=== PATIENT | female | born 1950 | race Caucasian/White ===

== ENCOUNTER 2019-04-12 15:09 | Inpatient (IN) | payer MEDICARE, OTHER ==
[2019-04-12] MEDS ORDERED: IBUPROFEN 600 MG TAB PO STA (15:41)
[2019-04-12] MEDS ORDERED: IPRATROPIUM-ALBUTEROL 3 ML NEB INHALATION STA (15:42)
[2019-04-12] MEDS ORDERED: methylPREDNISolone SOD SUCCI 125 MG/2 ML VIAL IV STA (15:43)
[2019-04-12] MEDS ORDERED: SODIUM CHLORIDE 0.9% 500 ML 500 ML IV SCH (15:45)
--- NOTE | 2019-04-12 15:45 | ED ---
General Adult HPI - General Chief complaint: Shortness of Breath Stated complaint: les, congestion Time Seen by Provider: 04/12/19 15:16 Source: patient, RN notes reviewed Mode of arrival: ambulatory Limitations: no limitations - History of Present Illness Initial comments: Patient is a pleasant 68-year-old female presenting to the emergency Department with complaints of difficulty breathing. Onset of symptoms was a couple of days ago, worsened today. Patient did find out that she had a fever today and took Tylenol around 2:00. Patient does have cough with mild greenish/yellowish sputum. Patient does have history of COPD. Patient did see her lung doctor just a few days ago who did tell her that she had some congestion in her chest. - Related Data Home Medications Medication Instructions Recorded Confirmed Albuterol Inhaler [Ventolin Hfa 1 - 2 puff INHALATION RT-Q6H 04/12/19 04/12/19 Inhaler] Budesonide/Formoterol Fumarate 2 puff INHALATION RT-BID 04/12/19 04/12/19 [Symbicort 160-4.5 Mcg Inhaler] Calcium Carbonate [Calcium] 600 mg PO DAILY 04/12/19 04/12/19 Candesartan [Atacand] 8 mg PO DAILY 04/12/19 04/12/19 Multivitamins, Thera [Multivitamin 1 tab PO DAILY 04/12/19 04/12/19 (formulary)] Triamterene-Hctz 37.5-25Mg 1 tab PO DAILY 04/12/19 04/12/19 [Maxzide 37.5-25] Umeclidinium [place] [Incruse 1 puff INHALATION RT-DAILY 04/12/19 04/12/19 Ellipta] Vitamin D3(Unknown Dose) 1 tab PO DAILY 04/12/19 04/12/19 Allergies Allergy/AdvReac Type Severity Reaction Status Date / Time lisinopril Allergy Rash/Hives Verified 04/12/19 15:48 mercury (elemental) Allergy Rash/Hives Verified 04/12/19 15:48 metoprolol Allergy Rash/Hives Verified 04/12/19 15:48 penicillin V Allergy Anaphylaxis Verified 04/12/19 15:48 pseudoephedrine Allergy Rapid Verified 04/12/19 15:48 [From [facility]] Heart Rate Review of Systems ROS Statement: Those systems with pertinent positive or pertinent negative responses have been documented in the HPI. ROS Other: All systems not noted in ROS Statement are negative. Constitutional: Reports: fever, chills Eyes: Denies: eye pain ENT: Denies: ear pain Respiratory: Reports: cough, dyspnea Cardiovascular: Reports: chest pain (Patient had some discomfort on the right side of her chest with cough. This has resolved following Tylenol.) Endocrine: Reports: fatigue Gastrointestinal: Denies: abdominal pain Genitourinary: Denies: dysuria Musculoskeletal: Denies: back pain Skin: Denies: rash Neurological: Denies: weakness Past Medical History Past Medical History: COPD, Hypertension History of Any Multi-Drug Resistant Organisms: None Reported Past Surgical History: Tonsillectomy Additional Past Surgical History / Comment(s): hernia repair. Past Psychological History: No Psychological Hx Reported Smoking Status: Current every day smoker Past Alcohol Use History: None Reported Past Drug Use History: None Reported General Exam Limitations: no limitations General appearance: alert, in no apparent distress Head exam: Present: atraumatic Eye exam: Present: normal appearance, PERRL ENT exam: Present: normal oropharynx Neck exam: Present: normal inspection Respiratory exam: Present: wheezes Cardiovascular Exam: Present: regular rate, normal rhythm Expanded Peripheral pulses: 2+: Radial (R), Radial (L), Dorsalis Pedis (R), Dorsalis Pedis (L) GI/Abdominal exam: Present: soft. Absent: tenderness Extremities exam: Present: normal inspection. Absent: pedal edema, calf tenderness Neurological exam: Present: alert Psychiatric exam: Present: normal affect, normal mood Skin exam: Present: normal color Course Vital Signs 04/12/19 04/12/19 04/12/19 15:10 15:51 15:58 Temperature 100.1 F H Pulse Rate 105 H 80 96 Respiratory 28 H 16 18 Rate Blood Pressure 96/55 O2 Sat by Pulse 94 L Oximetry 04/12/19 16:48 Temperature Pulse Rate Respiratory 18 Rate Blood Pressure O2 Sat by Pulse Oximetry - Reevaluation(s) Reevaluation #1: 04/12/19 16:59 Patient does meet criteria for sepsis diagnosed at 1659. Blood culture and lactic acid have been ordered. IV antibiotic's will be ordered. EKG Findings - EKG Comments: EKG Findings:: Normal sinus rhythm 91. OR 14. QRS 94. QT 382. QTC 469. Normal axis. Normal QRS. No acute ST change. Medical Decision Making - Medical Decision Making Patient reevaluated. Patient updated on results and plan. Case was discussed in detail Dr. Mcallister, who will admit for Dr. Smallwood. - Lab Data Result diagrams: 04/12/19 15:20 04/12/19 16:20 Lab Results 04/12/19 04/12/19 04/12/19 Range/Units 15:20 15:20 16:20 WBC 10.5 (3.8-10.6) k/uL RBC 2.83 L (3.80-5.40) m/uL Hgb 7.5 L (11.4-16.0) gm/dL Hct 25.4 L (34.0-46.0) % MCV 90.0 (80.0-100.0) fL MCH 26.7 (25.0-35.0) pg MCHC 29.7 L (31.0-37.0) g/dL RDW 14.5 (11.5-15.5) % Plt Count 194 (150-450) k/uL Neutrophils % 84 % Lymphocytes % 8 % Monocytes % 6 % Eosinophils % 1 % Basophils % 0 % Neutrophils # 8.8 H (1.3-7.7) k/uL Lymphocytes # 0.8 L (1.0-4.8) k/uL Monocytes # 0.7 (0-1.0) k/uL Eosinophils # 0.1 (0-0.7) k/uL Basophils # 0.0 (0-0.2) k/uL Sodium 133 L (137-145) mmol/L Potassium 3.8 (3.5-5.1) mmol/L Chloride 101 (98-107) mmol/L Carbon Dioxide 22 (22-30) mmol/L Anion Gap 10 mmol/L BUN 14 (7-17) mg/dL Creatinine 0.89 (0.52-1.04) mg/dL Est GFR (CKD-EPI)AfAm 78 (>60 ml/min/1.73 sqM) Est GFR (CKD-EPI)NonAf 68 (>60 ml/min/1.73 sqM) Glucose 131 H (74-99) mg/dL Plasma Lactic Acid Morales 1.5 (0.7-2.0) mmol/L Calcium 8.9 (8.4-10.2) mg/dL Total Bilirubin 1.3 (0.2-1.3) mg/dL AST 19 (14-36) U/L ALT 18 (9-52) U/L Alkaline Phosphatase 75 (38-126) U/L Total Protein 6.2 L (6.3-8.2) g/dL Albumin 3.5 (3.5-5.0) g/dL - Radiology Data Radiology results: image reviewed (Chest x-ray shows right middle lobe infiltrate) Critical Care Time Critical Care Time: Yes Total Critical Care Time: 33 Disposition Clinical Impression: Pneumonia, Sepsis, Acute exacerbation of chronic obstructive airways disease Disposition: ADMITTED IP TO THIS HOSP Is patient prescribed a controlled substance at d/c from ED?: No Referrals: Paras Smallwood MD [Primary Care Provider] - 1-2 days Decision Time: 17:05
[2019-04-12 16:13] LABS: Basophils % (A) 0 %; Eosinophils # (A) 0.1 k/uL (0-0.7); Eosinophils % (A) 1 %; HCT 25.4 % (34.0-46.0); Lymphocytes # (A) 0.8 k/uL (1.0-4.8); Lymphocytes % (A) 8 %; MCH 26.7 pg (25.0-35.0); MCHC 29.7 g/dL (31.0-37.0); Mean Platelet Volume 7.2; Monocytes # (A) 0.7 k/uL (0-1.0); Monocytes % (A) 6 %; Neutrophils # (A) 8.8 k/uL (1.3-7.7); Neutrophils % (A) 84 %; Platelet Count 194 k/uL (150-450); RBC 2.83 m/uL (3.80-5.40); RDW 14.5 % (11.5-15.5); WBC 10.5 k/uL (3.8-10.6)
--- NOTE | 2019-04-12 16:26 | XR ---
EXAMINATION TYPE: XR chest 2V DATE OF EXAM: 04/12/2019 COMPARISON: NONE HISTORY: Fever and cough TECHNIQUE: Frontal and lateral views of the chest are obtained. FINDINGS: There is some patchy infiltrate in the right middle lobe. The left lung is clear. There is no heart failure. Heart and mediastinum are normal. Bony thorax appears intact. IMPRESSION: Right middle lobe pneumonia. Normal heart.
[2019-04-12 16:47] LABS: Albumin 3.5 g/dL (3.5-5.0); Calcium 8.9 mg/dL (8.4-10.2); Potassium 3.8 mmol/L (3.5-5.1); Total Bilirubin 1.3 mg/dL (0.2-1.3); Total Protein 6.2 g/dL (6.3-8.2)
[2019-04-12] MEDS ORDERED: PNEUMONIA PROTOCOL UTILIZED 1 EACH MISC PO PRN (17:05)
[2019-04-12] MEDS ORDERED: IPRATROPIUM-ALBUTEROL 3 ML NEB INHALATION PRN (17:05)
[2019-04-12] MEDS ORDERED: AZITHROMYCIN 500 MG in SODIUM CHLORIDE 0.9% 250 ML IVPB STA (17:05)
[2019-04-12] MEDS ORDERED: LEVOFLOXACIN 750MG-D5W PMX 750 MG in DEXTROSE/WATER 1 150ML.BAG IVPB STA (17:07)
[2019-04-12] MEDS ORDERED: LEVOFLOXACIN 750MG-D5W PMX 750 MG in DEXTROSE/WATER 1 150ML.BAG IVPB SCH (17:15)
[2019-04-12] MEDS: SODIUM CHLORIDE 0.9% 1,000 ML IV SCH (17:24)
[2019-04-12] MEDS: methylPREDNISolone SOD SUCCI 125 MG/2 ML VIAL IV SCH ×2 (20:13→23:33)
[2019-04-12] MEDS: IPRATROPIUM-ALBUTEROL 3 ML NEB INHALATION SCH (20:33)
[2019-04-13] MEDS: SODIUM CHLORIDE 0.9% 1,000 ML IV SCH ×3 (03:32→23:21)
[2019-04-13] MEDS: methylPREDNISolone SOD SUCCI 125 MG/2 ML VIAL IV SCH ×4 (05:43→23:23)
[2019-04-13] MEDS: IPRATROPIUM-ALBUTEROL 3 ML NEB INHALATION SCH ×4 (07:52→19:01)
[2019-04-13 08:06] LABS: Basophils % (A) 0 %; Eosinophils % (A) 0 %; HCT 41.5 % (34.0-46.0); Lymphocytes # (A) 0.8 k/uL (1.0-4.8); Lymphocytes % (A) 5 %; MCH 30.1 pg (25.0-35.0); MCHC 32.6 g/dL (31.0-37.0); MCV 92.3 fL (80.0-100.0); Mean Platelet Volume 7.1; Monocytes # (A) 0.3 k/uL (0-1.0); Monocytes % (A) 2 %; Neutrophils # (A) 14.6 k/uL (1.3-7.7); Neutrophils % (A) 92 %; Platelet Count 336 k/uL (150-450); RDW 14.9 % (11.5-15.5); WBC 15.8 k/uL (3.8-10.6)
[2019-04-13 08:17] LABS: HGB 13.6 gm/dL (11.4-16.0)
[2019-04-13 08:19] LABS: HGB 7.5 gm/dL (11.4-16.0)
[2019-04-13] MEDS: LEVOFLOXACIN 750MG-D5W PMX 750 MG in DEXTROSE/WATER 1 150ML.BAG IVPB SCH (09:06)
[2019-04-13] MEDS: NICOTINE 21MG/24HR PATCH TRANSDERM SCH (09:20)
[2019-04-13] MEDS: MULTIVITAMINS, THERA 1 EACH TAB PO SCH (09:21)
[2019-04-13] MEDS: CALCIUM CARBONATE 500 MG CHEWABLE PO SCH (09:21)
[2019-04-13] MEDS: TRIAMTERENE-HCTZ 37.5-25MG 1 EACH TAB PO SCH (09:21)
--- NOTE | 2019-04-13 09:23 | XR ---
EXAMINATION TYPE: XR chest 2V DATE OF EXAM: 04/13/2019 COMPARISON: 04/12/2020 INDICATION: Pneumonia TECHNIQUE: Frontal and lateral views of the chest are obtained. FINDINGS: The heart size is normal. The pulmonary vasculature is normal. Small focal consolidation is at the right lung base right middle lobe. This is stable from comparison . Continued follow-up is recommended.. IMPRESSION: 1. Stable small consolidation right lung base right middle lobe and continued follow-up is recommende d
[2019-04-13] MEDS ORDERED: ACETAMINOPHEN TAB 325 MG TAB PO PRN (09:27)
--- NOTE | 2019-04-13 09:46 | P.HPIM ---
History of Present Illness H&P Date: 04/13/19 Chief Complaint: Difficulty breathing This is a 68-year-old female patient of Dr. Smallwood with a past medical history of COPD, hypertension, tobacco use and dependence at one pack per day for 30-40 years. Patient's pulmonary doctor has been Dr. Major and patient was seen on by Josselyn Ivy GAS WELDER in the office and was diagnosed with congestion but patient felt worse on Saturday. On Saturday she noted that she slept about 14 hours but was waking up every couple hours. On Saturday her girlfriend came over and told her that she looked awful and felt her face and patient was found to have a fever. Patient states she's had a headache since which she never has headaches. Patient did take Tylenol and 20-30 minutes later broke into profuse sweats. Patient came into [facility] emergency center for evaluation. Temperature max 100.1, heart rate 105, respiratory rate 28 and blood pressure 96/54, pulse ox is 94% on room air. EKG was a normal sinus rhythm with no acute ST-T wave changes. White count was 10.5 with repeat 15.8 possibly related to steroids or sepsis, hemoglobin 7.5 but repeat was 13.6, platelet count 194, sodium 133, creatinine 0.89 and blood sugar 131. Chest x-ray revealed right middle lobe pneumonia. Normal heart. Repeat chest x-ray this morning reveals stable small consolidation right lung base rig ht middle lobe and continued follow-up is recommended. Patient was given a dose of azithromycin started on Levaquin and Solu-Medrol, DuoNeb treatments and admitted to the [facility] floor. Consult with Dr. ELVIA Rodriguez added. Patient does now have nebulizer, oxygen, CPAP at home. . Review of Systems Constitutional: Reports chills, Reports fatigue, Reports fever, Reports lethargy, Reports malaise, Reports poor appetite, Reports weakness Ears, nose, mouth and throat: Denies dysphagia, Denies nasal congestion, Denies nasal discharge, Denies vertigo Cardiovascular: Reports shortness of breath, Denies chest pain, Denies dyspnea on exertion, Denies edema, Denies leg edema, Denies lightheadedness, Denies syncope Respiratory: Reports cough, Reports cough with sputum, Reports dyspnea, Reports respiratory infections, Reports wheezing, Denies excessive sputum, Denies hemoptysis, Denies home oxygen Gastrointestinal: Denies abdominal pain, Denies diarrhea, Denies nausea, Denies vomiting Genitourinary: Denies dysuria, Denies hematuria, Denies urgency, Denies urinary frequency Musculoskeletal: Denies frequent falls, Denies gait dysfunction, Denies muscle weakness, Denies myalgias Integumentary: Denies pruritus, Denies rash, Denies wounds Neurological: Denies aphasia, Denies change in mentation, Denies change in speech, Denies numbness, Denies seizures, Denies syncope, Denies weakness Psychiatric: Denies anxiety, Denies depression Endocrine: Denies fatigue, Denies weight change Past Medical History Past Medical History: COPD, Hypertension History of Any Multi-Drug Resistant Organisms: None Reported Past Surgical History: Tonsillectomy Additional Past Surgical History / Comment(s): hernia repair. Smoking Status: Current every day smoker Additional Past Alcohol Use History / Comment(s): Patient is a smoker of one pack per day for 30-40 years. She denies any marijuana, street drug or alcohol use. She is retired cashier and waiter/waitress. She lives at home with significant other. She does not have a nebulizer, oxygen, CPAP. - Past Family History Father Additional Family Medical History / Comment(s): Father at age 68 from kidney cancer. He also had lung cancer. Patient was exposed to toxic chemicals thought to cause kidney cancer. Mother Additional Family Medical History / Comment(s): Mother at age 54 from gangrene. She was not diabetic. Sister(s) Additional Family Medical History / Comment(s): The patient has one sister and she has had no contact with her for 20 years. Patient does not have any brothers. Patient has 4 children with no major medical problems. Medications and Allergies Home Medications Medication Instructions Recorded Confirmed Type Albuterol Inhaler [Ventolin Hfa 1 - 2 puff INHALATION RT-Q6H 04/12/19 04/12/19 History Inhaler] Budesonide/Formoterol Fumarate 2 puff INHALATION RT-BID 04/12/19 04/12/19 History [Symbicort 160-4.5 Mcg Inhaler] Calcium Carbonate [Calcium] 600 mg PO DAILY 04/12/19 04/12/19 History Candesartan [Atacand] 8 mg PO DAILY 04/12/19 04/12/19 History Multivitamins, Thera [Multivitamin 1 tab PO DAILY 04/12/19 04/12/19 History (formulary)] Triamterene-Hctz 37.5-25Mg 1 tab PO DAILY 04/12/19 04/12/19 History [Maxzide 37.5-25] Umeclidinium [place] [Incruse 1 puff INHALATION RT-DAILY 04/12/19 04/12/19 History Ellipta] Vitamin D3(Unknown Dose) 1 tab PO DAILY 04/12/19 04/12/19 History Allergies Allergy/AdvReac Type Severity Reaction Status Date / Time lisinopril Allergy Rash/Hives Verified 04/12/19 15:48 mercury (elemental) Allergy Rash/Hives Verified 04/12/19 15:48 metoprolol Allergy Rash/Hives Verified 04/12/19 15:48 penicillin V Allergy Anaphylaxis Verified 04/12/19 15:48 pseudoephedrine Allergy Rapid Verified 04/12/19 15:48 [From [facility]] Heart Rate Physical Exam Vitals: Vital Signs Temp Pulse Pulse Resp BP BP Pulse Ox 04/13/19 08:03 73 04/13/19 07:53 72 04/13/19 05:00 97.5 F L 58 L 16 108/70 97 04/13/19 00:00 67 20 04/12/19 21:00 96.7 F L 67 20 106/50 91 L 04/12/19 20:43 80 04/12/19 20:36 77 04/12/19 17:10 97.8 F 79 18 104/67 98 04/12/19 16:48 18 04/12/19 15:58 96 18 04/12/19 15:51 80 16 04/12/19 15:10 100.1 F H 105 H 28 H 96/55 94 L Intake and Output 04/12/19 04/13/19 04/13/19 22:59 06:59 14:59 Intake Total 590 590 Balance 590 590 Intake: Oral 590 590 Other: # Voids 1 2 Weight 71.214 kg Gen: This is a 68-year-old female. Patient is resting been appears to be comfortable. Patient is able to speak in full sentences. No respiratory distress is noted. HEENT: Head is atraumatic, normocephalic. Pupils equal, round. Sclerae is anicteric. NECK: Supple. No JVD. No lymphadenopathy. No thyromegaly. LUNGS: Expiratory wheeze throughout. No accessory muscle usage. No intercostal retractions. HEART: Regular rate and rhythm. No murmur. ABDOMEN: Soft. Bowel sounds are present. No masses. No tenderness. EXTREMITIES: No pedal edema. No calf tenderness. Dorsalis pedis +2 bilaterally. NEUROLOGICAL: Patient is awake, alert and oriented x3. Cranial nerves 2 through 12 are grossly intact. Results CBC & Chem 7: 04/13/19 07:18 04/12/19 16:20 Labs: Abnormal Lab Results - Last 24 Hours (Table) 04/12/19 04/12/19 04/13/19 Range/Units 15:20 16:20 07:18 WBC 15.8 H (3.8-10.6) k/uL RBC 2.83 L (3.80-5.40) m/uL Hgb 7.5 L (11.4-16.0) gm/dL Hct 25.4 L (34.0-46.0) % MCHC 29.7 L (31.0-37.0) g/dL Neutrophils # 8.8 H 14.6 H (1.3-7.7) k/uL Lymphocytes # 0.8 L 0.8 L (1.0-4.8) k/uL Sodium 133 L (137-145) mmol/L Glucose 131 H (74-99) mg/dL Total Protein 6.2 L (6.3-8.2) g/dL Thrombosis Risk Factor Assmnt - DVT/VTE Prophylaxis DVT/VTE Prophylaxis: Pharmacologic Prophylaxis ordered - Choose All That Apply Each Factor Represents 1 point: Abnormal pulmonary function (COPD), Obesity (BMI >25), Serious lung disease incl. pneumonia (< 1month) Each Risk Factor Represents 2 Points: Age 61-74 years Thrombosis Risk Factor Assessment Total Risk Factor Score: 5 Thrombosis Risk Factor Assessment Level: High Risk Assessment and Plan Plan: 1. COPD exacerbation and right-sided pneumonia and sepsis presenting with fever, tachycardia, tachypnea, hypotension. Continue Levaquin 750 mg IV piggyback daily, Solu-Medrol 60 mg IV every 6 hours, Symbicort twice daily. Consult with Dr. ELVIA Rodriguez. Continue Tylenol as needed for fever. 2. Tobacco use and dependence. Nicotine patch daily. 3. Hypertension. Can do statin 8 mg daily, Maxide 25 one daily, hold for systolic blood pressure less than 110. 4. GI prophylaxis. Pepcid 20 mg twice daily. 5. DVT prophylaxis. Lovenox daily. 6. Elevated blood sugar, check hemoglobin A1c. 7. DVT prophylaxis. Lovenox. 8. GI prophylaxis. Pepcid daily. Patient will be admitted to the hospital for a minimum of 2 night stay. Discharge plan: Home. Patient will need nebulizer arranged for home. Case management is following. Impression and plan of care have been directed as dictated by the signing physician. Radha Woodruff nurse practitioner acting as scribe for signing physician.
[2019-04-13] MEDS: FAMOTIDINE 20 MG TAB PO SCH ×2 (11:11→20:25)
[2019-04-13] MEDS: CANDESARTAN 8 MG PO SCH (11:12)
[2019-04-13 11:28] LABS: Glucose,Whole Blood 182 mg/dL (75-99)
[2019-04-13] MEDS: INSULIN ASPART (NovoLOG) 100 UNIT/ML VIAL SQ SCH ×3 (12:19→20:26)
[2019-04-13] MEDS ORDERED: AZITHROMYCIN 500 MG TAB PO SCH (17:06)
[2019-04-13 17:18] LABS: Glucose,Whole Blood 146 mg/dL (75-99)
--- NOTE | 2019-04-13 18:33 | CT ---
EXAMINATION TYPE: CT chest wo con DATE OF EXAM: 04/13/2019 COMPARISON: None HISTORY: Pneumonia. CT DLP: 366 mGycm. Automated Exposure Control for Dose Reduction was Utilized. TECHNIQUE: CT scan of the thorax is performed without IV contrast. FINDINGS: There is a somewhat rounded 3.5 cm area of airspace consolidation lateral right lower lobe. The other lung olivo are clear of consolidation. There is some linear density lingula left upper lobe. There is mild linear density in the anterior segment right upper lobe adjacent to the mediastinum. There is no pleural effusion. Heart size is normal. There is no pericardial effusion. There is some coronary artery calcification. There is hypertrophic degenerative spurring in the thoracic spine. There is no compression fracture.. IMPRESSION: Airspace pneumonia right lower lobe. Linear density consistent with scarring atelectasis in the lingula left upper lobe and in the anterio r segment right upper lobe.
[2019-04-13] MEDS: BUDESONIDE 0.5 MG/2 ML NEBU INHALATION SCH (19:01)
--- NOTE | 2019-04-13 19:33 | CONS ---
CONSULTATION Suzanne Hoffman is a 68-year-old female with a history of asthma who presented to the ER at [facility] with increasing shortness of breath. This has been associated with cough, some wheezing, right-sided pleuritic chest pain as well as some fever, chills with sweats. She was seen in the ER. Chest x-ray showed evidence of a right lower zone infiltrate. She was admitted for further evaluation and management. PAST MEDICAL HISTORY: Her past medical history is positive for: 1. Asthma. 2. COPD. 3. Hypertension. 4. Previous tonsillectomy. 5. Hernia repair. SOCIAL HISTORY: Patient is an everyday smoker. She does not drink alcohol excessively. FAMILY HISTORY: Positive for kidney cancer in her father. Mother had a history of gangrene and at age 54. REVIEW OF SYSTEMS: Noncontributory. ALLERGIES: 1. LISINOPRIL. 2. METOPROLOL. 3. PENICILLIN B. 4. PSEUDOEPHEDRINE. 5. MERCURY. MEDICATIONS: Her medications prior to admission were: 1. Vitamin D3. 2. Incruse. 3. Maxzide. 4. Multivitamin. 5. Atacand. 6. Calcium. 7. Symbicort. 8. Ventolin HFA. PHYSICAL EXAMINATION: She was lying in bed. She was in mild respiratory distress. Her temperature was 100.1 when she came to the ER, respiratory rate of 28, pulse rate of 105, blood pressure 95/55. Oxygen saturation on room air was 94%. HEENT: Pupils are equal. Chest reveals prolonged exhalation with expiratory wheeze. Cardiovascular system is in S1, S2. ABDOMEN: Soft. There is no edema. LABS/IMAGING: White count is 15.8, hemoglobin of 13.6 with 14,600 neutrophils. Sodium is 133, potassium 3.8, chloride 101, bicarb 22. Chest x-ray showed evidence of right middle zone infiltrate. IMPRESSION AT THIS TIME: 1. Right-sided pneumonia. 2. Asthma with chronic obstructive pulmonary disease with acute exacerbation. At this point in time, keep her on IV and aerosolized steroids. Add leukotriene receptor antagonist to her regimen. Continue antibiotics. Await cultures on her. Increase her activity level. Keep her on GI and DVT prophylaxis. Keep her on bronchodilators. We will follow closely during her hospital stay and appreciate the opportunity to participate in her care. MMODL / IJN: [id number] /
[2019-04-13] MEDS ORDERED: SYMBICORT 160-4.5 MCG INHALER INHALATION SCH (20:00)
[2019-04-13 20:08] LABS: Glucose,Whole Blood 224 mg/dL (75-99)
[2019-04-13] MEDS: MONTELUKAST 10 MG TAB PO SCH (20:25)
[2019-04-14] MEDS: methylPREDNISolone SOD SUCCI 125 MG/2 ML VIAL IV SCH ×2 (05:44→12:41)
[2019-04-14 07:08] LABS: Glucose,Whole Blood 148 mg/dL (75-99)
[2019-04-14] MEDS: CALCIUM CARBONATE 500 MG CHEWABLE PO SCH (07:32)
[2019-04-14] MEDS: FAMOTIDINE 20 MG TAB PO SCH ×2 (07:32→21:06)
[2019-04-14] MEDS: MULTIVITAMINS, THERA 1 EACH TAB PO SCH (07:32)
[2019-04-14] MEDS: TRIAMTERENE-HCTZ 37.5-25MG 1 EACH TAB PO SCH (07:32)
[2019-04-14] MEDS: CANDESARTAN 8 MG PO SCH (07:33)
[2019-04-14] MEDS: INSULIN ASPART (NovoLOG) 100 UNIT/ML VIAL SQ SCH ×4 (07:33→21:04)
[2019-04-14] MEDS: NICOTINE 21MG/24HR PATCH TRANSDERM SCH (07:33)
[2019-04-14] MEDS: ENOXAPARIN 40 MG/0.4 ML SYRINGE SQ SCH (07:34)
[2019-04-14] MEDS: LEVOFLOXACIN 750MG-D5W PMX 750 MG in DEXTROSE/WATER 1 150ML.BAG IVPB SCH (07:34)
[2019-04-14] MEDS ORDERED: NON-FORMULARY DRUG (Umeclidinium Bromide [Incruse Ellipta] 1 PUFF) INHALATION SCH (08:00)
[2019-04-14] MEDS: BUDESONIDE 0.5 MG/2 ML NEBU INHALATION SCH ×2 (08:12→20:20)
[2019-04-14] MEDS: IPRATROPIUM-ALBUTEROL 3 ML NEB INHALATION SCH ×4 (08:12→20:20)
[2019-04-14] MEDS: SODIUM CHLORIDE 0.9% 1,000 ML IV SCH ×2 (10:21→12:46)
[2019-04-14 11:24] LABS: Glucose,Whole Blood 120 mg/dL (75-99)
--- NOTE | 2019-04-14 14:00 | CDI ---
Documentation Clarification Form Date: 04/15/2019 1:52:18 PM From: Josselyn DiopBarneyLUCIANO, CCDS Admit Date: 04/12/2019 5:05:00 PM Patient Name: Suzanne Hoffman Visit Number: [id number] Discharge Date: ATTENTION: The Clinical Documentation Specialists (CDI) and [facility] Coding Staff appreciate your assistance in clarifying documentation. Please respond to the clarification below the line at the bottom and electronically sign. The CDI & [facility] Coding staff will review the response and follow-up if needed. Please note: Queries are made part of the Legal Health Record. If you have any questions, please contact the author of this message via ITS. Dr. Kavin Rodriguez: Asthma is documented in the pulmonary consult: "Asthma with COPD with acute exacerbation." History/risk factors: Asthma, COPD, Hypertension & Smoker. Clinical Indicators: SOB, cough, wheezing, right side pleuritic chest pain, fever, chills & sweats. Radiology: CXR: right lower zone infiltrate. Vital Signs: T 100.1^, P 105^, R 28^, BP 96/55*, PO 94 RA Treatment: INH Albuterol, IV Solumedrol, IV fluid 1000, IV Azithromycin, IV Levaquin, O2 2Lnc In your professional opinion, can you please further specify the following, if known? Acute Exacerbation o Status asthmaticus o Acute lower respiratory infection o COPD (specify with or without exacerbation) o Chronic obstructive bronchitis o Other, please specify ___ o Unable to determine Severity o Mild intermittent o Mild persistent o Moderate persistent o Severe persistent o Other, please specify ____ o Unable to determine Form or Type o Cough variant o Childhood o Exercise induced bronchospasm o Extrinsic allergic o Idiosyncratic o Intrinsic nonallergic o Late-onset o Mixed o Other, please specify____ o Unable to determine (Last Revision: November 2017) MTDD
--- NOTE | 2019-04-14 15:35 | P.PN ---
Subjective Progress Note Date: 04/14/19 This is a 68-year-old female patient of Dr. Smallwood with a past medical history of COPD, hypertension, tobacco use and dependence at one pack per day for 30-40 years. Patient's pulmonary doctor has been Dr. Major and patient was seen on by Josselyn Ivy MANAGER MARKETING SALES in the office and was diagnosed with congestion but patient felt worse on Saturday. On Saturday she noted that she slept about 14 hours but was waking up every couple hours. On Saturday her girlfriend came over and told her that she looked awful and felt her face and patient was found to have a fever. Patient states she's had a headache since which she never has headaches. Patient did take Tylenol and 20-30 minutes later broke into profuse sweats. Patient came into [facility] emergency center for evaluation. Temperature max 100.1, heart rate 105, respiratory rate 28 and blood pressure 96/54, pulse ox is 94% on room air. EKG was a normal sinus rhythm with no acute ST-T wave changes. White count was 10.5 with repeat 15.8 possibly related to steroids or sepsis, hemoglobin 7.5 but repeat was 13.6, platelet count 194, sodium 133, creatinine 0.89 and blood sugar 131. Chest x-ray revealed right middle lobe pneumonia. Normal heart. Repeat chest x-ray this morning reveals stable small consolidation right lung base right middle lobe and continued follow-up is recommended. Patient was given a dose of azithromycin started on Levaquin and Solu-Medrol, DuoNeb treatments [facility] Consult with Dr. ELVIA Rodriguez added. Patient does now have nebulizer, oxygen, CPAP at home. 04/14: Patient states that she is breathing much better today. She also states that she slept well last night. Patient is complaining of having diarrhea, 3 episodes today. The patient has been afebrile, heart rate 80, blood pressure 136/61, pulse ox 95% on room air. Blood sugars were elevated secondary to steroids. We will decrease Solu-Medrol to 40 every 8 hours. The patient has been seen by Dr. ELVIA Rodriguez. Review of Systems Constitutional: Reports chills, Reports fatigue, Reports fever, Reports lethargy, Reports malaise, Reports poor appetite, Reports weakness Ears, nose, mouth and throat: Denies dysphagia, Denies nasal congestion, Denies nasal discharge, Denies vertigo Cardiovascular: Reports shortness of breath, Denies chest pain, Denies dyspnea on exertion, Denies edema, Denies leg edema, Denies lightheadedness, Denies syncope Respiratory: Reports cough, Reports cough with sputum, denies dyspnea, Reports respiratory infections, Reports wheezing, Denies excessive sputum, Denies hemoptysis, Denies home oxygen Gastrointestinal: Denies abdominal pain, Denies diarrhea, Denies nausea, Denies vomiting Genitourinary: Denies dysuria, Denies hematuria, Denies urgency, Denies urinary frequency Musculoskeletal: Denies frequent falls, Denies gait dysfunction, Denies muscle weakness, Denies myalgias Integumentary: Denies pruritus, Denies rash, Denies wounds Neurological: Denies aphasia, Denies change in mentation, Denies change in speech, Denies numbness, Denies seizures, Denies syncope, Denies weakness Psychiatric: Denies anxiety, Denies depression Endocrine: Denies fatigue, Denies weight change Objective - Vital Signs Vital signs: Vital Signs Temp 97.6 F 04/14/19 13:00 Pulse 75 04/14/19 13:00 Resp 16 04/14/19 13:00 BP 136/61 04/14/19 13:00 Pulse Ox 95 04/14/19 13:00 Intake & Output 04/13/19 04/14/19 04/14/19 18:59 06:59 18:59 Intake Total 3450 1080 Balance 3450 1080 Intake: Intake, IV Titration 1000 600 Amount Levofloxacin 750Mg-D5w 100 Pmx 750 mg In Dextrose/ Water 1 150ml.bag @ 100 mls/hr IVPB DAILY [facility] Rx# :[id number] Sodium Chloride 0.9% 1, 900 600 000 ml @ 100 mls/hr IV . Q10H [facility] Rx#:[id number] Oral [id number] [id number] Other: Voiding Method Toilet Toilet Toilet # Voids 2 - Exam Gen: This is a 68-year-old female. Patient is resting been appears to be comfortable. No respiratory distress is noted. HEENT: Head is atraumatic, normocephalic. Pupils equal, round. Sclerae is anicteric. NECK: Supple. No JVD. No lymphadenopathy. No thyromegaly. LUNGS: Few expiratory wheeze. No accessory muscle usage. No intercostal re tractions. HEART: Regular rate and rhythm. No murmur. ABDOMEN: Soft. Bowel sounds are present. No masses. No tenderness. EXTREMITIES: No pedal edema. No calf tenderness. Dorsalis pedis +2 bilatera lly. NEUROLOGICAL: Patient is awake, alert and oriented x3. Cranial nerves 2 through 12 are grossly intact. - Labs CBC & Chem 7: 04/13/19 07:18 04/12/19 16:20 Labs: Abnormal Lab Results - Last 24 Hours (Table) 04/13/19 04/13/19 04/14/19 Range/Units 17:16 20:07 06:56 POC Glucose (mg/dL) 146 H 224 H 148 H (75-99) mg/dL 04/14/19 Range/Units 11:19 POC Glucose (mg/dL) 120 H (75-99) mg/dL Microbiology - Last 24 Hours (Table) 04/12/19 16:34 Blood Culture - Preliminary Blood No Growth after 24 hours Assessment and Plan Plan: 1. COPD exacerbation and right-sided pneumonia and sepsis presenting with fever, tachycardia, tachypnea, hypotension. Continue Levaquin 750 mg IV piggyback daily, Solu-Medrol decreased to 40 mg IV every 8 hours, Symbicort twice daily. Consult with Dr. ELVIA Rodriguez appreciated. Continue Tylenol as needed for fever. 2. Tobacco use and dependence. Nicotine patch daily. 3. Hypertension. Candesartan 8 mg daily, Maxide 25 one daily, hold for systolic blood pressure less than 110. 4. GI prophylaxis. Pepcid 20 mg twice daily. 5. DVT prophylaxis. Lovenox daily. 6. Elevated blood sugar, check hemoglobin A1c. 7. DVT prophylaxis. Lovenox. 8. GI prophylaxis. Pepcid daily. Discharge plan: Home. Patient will need nebulizer arranged for home. Case management is following. Impression and plan of care have been directed as dictated by the signing physician. Radha Woodruff nurse practitioner acting as scribe for signing physician.
--- NOTE | 2019-04-14 17:22 | P.PN ---
Subjective Progress Note Date: 04/14/19 Principal diagnosis: Right upper lobe pneumonia, sepsis secondary right upper lobe pneumonia, COPD exacerbation, smoking and nicotine abuse, hypertension hypertensive cardiovascular disease 04/14/2019, patient seen eval reexamined during the rounds labs reviewed medications reviewed care plan discussed with the patient at length currently undergoing antibiotics her shortness of breath cough congestion is improved significantly, remains afebrile on room air saturation 95%, denies any hemoptysis This is a 68-year-old female patient of Dr. Smallwood with a past medical history of COPD, hypertension, tobacco use and dependence at one pack per day for 30-40 years. she noted that she slept about 14 hours but was waking up every couple hours. On Saturday her girlfriend came over and told her that she looked awful and felt her face and patient was found to have a fever. Patient states she's had a headache since which she never has headaches. Patient did take Tylenol and 20-30 minutes later broke into profuse sweats. Patient came into [facility] emergency center for evaluation. Temperature max 100.1, heart rate 105, respiratory rate 28 and blood pressure 96/54, pulse ox is 94% on room air. EKG was a normal sinus rhythm with no acute ST-T wave changes. White count was 10.5 with repeat 15.8 possibly related to steroids or sepsis, hemoglobin 7.5 but repeat was 13.6, platelet count 194, sodium 133, creatinine 0.89 and blood sugar 131. Chest x-ray revealed right middle lobe pneumonia. Objective - Vital Signs Vital signs: Vital Signs Temp 97.6 F 04/14/19 13:00 Pulse 80 04/14/19 16:18 Resp 16 04/14/19 13:00 BP 136/61 04/14/19 13:00 Pulse Ox 95 04/14/19 13:00 Intake & Output 04/13/19 04/14/19 04/14/19 18:59 06:59 18:59 Intake Total 3450 1080 Balance 3450 1080 Intake: Intake, IV Titration 1000 600 Amount Levofloxacin 750Mg-D5w 100 Pmx 750 mg In Dextrose/ Water 1 150ml.bag @ 100 mls/hr IVPB DAILY [facility] Rx# :[id number] Sodium Chloride 0.9% 1, 900 600 000 ml @ 100 mls/hr IV . Q10H [facility] Rx#:[id number] Oral 2450 480 Other: Voiding Method Toilet Toilet Toilet # Voids 2 - Exam Gen: This is a 68-year-old female. Patient is resting been appears to be comfortable. Patient is able to speak in full sentences. No respiratory distress is noted. HEENT: Head is atraumatic, normocephalic. Pupils equal, round. Sclerae is anicteric. NECK: Supple. No JVD. No lymphadenopathy. No thyromegaly. LUNGS: Expiratory wheeze throughout. No accessory muscle usage. No intercostal retractions. HEART: Regular rate and rhythm. No murmur. ABDOMEN: Soft. Bowel sounds are present. No masses. No tenderness. EXTREMITIES: No pedal edema. No calf tenderness. Dorsalis pedis +2 bilaterally. NEUROLOGICAL: Patient is awake, alert and oriented x3. Cranial nerves 2 through 12 are grossly intact. - Labs CBC & Chem 7: 04/13/19 07:18 04/12/19 16:20 Labs: Abnormal Lab Results - Last 24 Hours (Table) 04/13/19 04/13/19 04/14/19 Range/Units 17:16 20:07 06:56 POC Glucose (mg/dL) 146 H 224 H 148 H (75-99) mg/dL 04/14/19 Range/Units 11:19 POC Glucose (mg/dL) 120 H (75-99) mg/dL Microbiology - Last 24 Hours (Table) 04/12/19 16:34 Blood Culture - Preliminary Blood No Growth after 24 hours Assessment and Plan Assessment: Right lower lobe pneumonia Sepsis due to right lower lobe pneumonia Subsegmental atelectasis on the left lung and lingular lobe Advanced COPD Acute on chronic hypoxic respiratory failure Hypertension hypertensive cardiovascular disease Plan: IV steroids and antibiotics can be changed to by mouth if patient remains stable can be discharged home in next 24 hours with follow-up x-ray on outpatient basis Time with Patient: Greater than 30
[2019-04-14 17:27] LABS: Glucose,Whole Blood 158 mg/dL (75-99)
[2019-04-14 20:13] LABS: Glucose,Whole Blood 129 mg/dL (75-99)
[2019-04-14] MEDS: MONTELUKAST 10 MG TAB PO SCH (21:06)
[2019-04-14] MEDS: methylPREDNISolone SOD SUCCI 40 MG/ML 1 ML VIAL IV SCH (23:43)
[2019-04-15 00:23] LABS: Hemoglobin A1C 5.8 % (4.0-6.0)
[2019-04-15 05:21] VITALS: TEMP 97.7
[2019-04-15] MEDS: CANDESARTAN 8 MG PO SCH (06:19)
[2019-04-15 07:01] LABS: Glucose,Whole Blood 130 mg/dL (75-99)
[2019-04-15] MEDS: SODIUM CHLORIDE 0.9% 1,000 ML IV SCH ×2 (07:44→09:44)
[2019-04-15] MEDS: INSULIN ASPART (NovoLOG) 100 UNIT/ML VIAL SQ SCH ×2 (07:45→12:34)
[2019-04-15] MEDS: IPRATROPIUM-ALBUTEROL 3 ML NEB INHALATION SCH ×2 (08:15→11:45)
[2019-04-15] MEDS: BUDESONIDE 0.5 MG/2 ML NEBU INHALATION SCH (08:16)
[2019-04-15] MEDS: CALCIUM CARBONATE 500 MG CHEWABLE PO SCH (09:37)
[2019-04-15] MEDS: MULTIVITAMINS, THERA 1 EACH TAB PO SCH (09:37)
[2019-04-15] MEDS: NICOTINE 21MG/24HR PATCH TRANSDERM SCH (09:38)
[2019-04-15] MEDS: methylPREDNISolone SOD SUCCI 40 MG/ML 1 ML VIAL IV SCH (09:39)
[2019-04-15] MEDS: ENOXAPARIN 40 MG/0.4 ML SYRINGE SQ SCH (09:39)
[2019-04-15] MEDS: FAMOTIDINE 20 MG TAB PO SCH (09:39)
[2019-04-15] MEDS: LEVOFLOXACIN 750MG-D5W PMX 750 MG in DEXTROSE/WATER 1 150ML.BAG IVPB SCH (09:41)
[2019-04-15] MEDS: TRIAMTERENE-HCTZ 37.5-25MG 1 EACH TAB PO SCH (09:42)
[2019-04-15 11:28] LABS: Glucose,Whole Blood 137 mg/dL (75-99)
[2019-04-15 11:56] VITALS: BP 139/74; PULSE 60; RESP 17
--- NOTE | 2019-04-15 13:05 | PN ---
PROGRESS NOTE She was seen again on 04/15/2019. She is basically back to her baseline from a dyspnea perspective. She is in the process of being discharged today. PHYSICAL EXAMINATION: On physical examination, her blood pressure 139/74, respiratory rate of 17, pulse rate 60, temperature 97.7, O2 saturation on room air 94%. HEENT is unremarkable. Chest reveals prolonged expiration. No wheeze. Cardiovascular system reveals an S1, S2. Abdomen is soft. There is no edema. LABS: Labs are reviewed. IMPRESSION AT THIS TIME: 1. Severe persistent asthma with acute exacerbation. 2. Right-sided pneumonia. Continue her current medications and can be switched to oral antibiotics as well as tapering steroids. We will follow her closely in the outpatient setting. I discussed my thoughts with the patient and the patient's . MMODL / IJN: [id number] /
--- NOTE | 2019-04-15 15:05 | P.DS ---
Providers Date of admission: 04/12/19 17:05 Expected date of discharge: 04/15/19 Attending physician: Bindu Mcallister Consults: 04/13/19 08:57 Consult Physician Routine Consulting Provider: Kavin Rodriguez Consult Reason/Comments: copd exac Do you want consulting provider notified?: Yes Primary care physician: [facility] Course: This is a 68-year-old female patient of Dr. Smallwood with a past medical history of COPD, hypertension, tobacco use and dependence at one pack per day for 30-40 years. Patient's pulmonary doctor has been Dr. Major and patient was seen on by Josselyn Ivy LEAD ANDROID DEVELOPER in the office and was diagnosed with congestion but patient felt worse on Saturday. On Saturday she noted that she slept about 14 hours but was waking up every couple hours. On Saturday her girlfriend came over and told her that she looked awful and felt her face and patient was found to have a fever. Patient states she's had a headache since which she never has headaches. Patient did take Tylenol and 20-30 minutes later broke into profuse sweats. Patient came into [facility] emergency center for evaluation. Temperature max 100.1, heart rate 105, respiratory rate 28 and blood pressure 96/54, pulse ox is 94% on room air. EKG was a normal sinus rhythm with no acute ST-T wave changes. White count was 10.5 with repeat 15.8 possibly related to steroids or sepsis, hemoglobin 7.5 but repeat was 13.6, platelet count 194, sodium 133, creatinine 0.89 and blood sugar 131. Chest x-ray revealed right middle lobe pneumonia. Normal heart. Repeat chest x-ray this morning reveals stable small consolidation right lung base right middle lobe and continued follow-up is recommended. Patient was given a dose of azithromycin started on Levaquin and Solu-Medrol, DuoNeb treatments and admitted to the [facility] floor. Consult with Dr. ELVIA Rodriguez added. Patient does now have nebulizer, oxygen, CPAP at home. 04/14: Patient states that she is breathing much better today. She also states that she slept well last night. Patient is complaining of having diarrhea, 3 episodes today. The patient has been afebrile, heart rate 80, blood pressure 136/61, pulse ox 95% on room air. Blood sugars were elevated secondary to steroids. We will decrease Solu-Medrol to 40 every 8 hours. The patient has been seen by Dr. ELVIA Rodriguez. 04/15: Patient states that her breathing is much improved. She is bringing up any sputum at this time. She has been afebrile, heart rate 72, blood pressure 139/74. Pulse ox 96% on room air. Patient has obtained nebulizer from her medical. Prescription for DuoNeb medication will be sent to her pharmacy. A social work coordinator is helping patient with medical cost of nicotine patch. Patient will be discharged home today in stable condition. Discharge diagnoses: 1. COPD exacerbation and right-sided pneumonia and sepsis presenting with fever, tachycardia, tachypnea, hypotension. 2. Tobacco use and dependence. 3. Hypertension. 4. Elevated blood sugar, check hemoglobin A1c. Discharge plan: Home. Impression and plan of care have been directed as dictated by the signing physician. Radha Woodruff nurse practitioner acting as scribe for signing physician. Patient Condition at Discharge: Good Plan - Discharge Summary Discharge Rx Participant: No New Discharge Prescriptions: New Levofloxacin [Levaquin] 750 mg PO DAILY #7 tab Famotidine [Pepcid] 20 mg PO BID #30 tab Montelukast [Singulair] 10 mg PO HS #30 tab predniSONE 0 mg PO DIRECTED #30 tab Nicotine 21Mg/24Hr Patch [Habitrol] 1 each TRANSDERM DAILY #63 patch Ipratropium-Albuterol Nebulize [Duoneb 0.5 mg-3 mg/3 ml Soln] 3 ml INHALATION QID #120 neb Continue Multivitamins, Thera [Multivitamin (formulary)] 1 tab PO DAILY Budesonide/Formoterol Fumarate [Symbicort 160-4.5 Mcg Inhaler] 2 puff INHALATION RT-BID Albuterol Inhaler [Ventolin Hfa Inhaler] 1 - 2 puff INHALATION RT-Q6H Umeclidinium Elwell [Incruse Ellipta] 1 puff INHALATION RT-DAILY Triamterene-Hctz 37.5-25Mg [Maxzide 37.5-25] 1 tab PO DAILY Candesartan [Atacand] 8 mg PO DAILY Vitamin D3(Unknown Dose) 1 tab PO DAILY Calcium Carbonate [Calcium] 600 mg PO DAILY Discharge Medication List Albuterol Inhaler [Ventolin Hfa Inhaler] 1 - 2 puff INHALATION RT-Q6H 04/12/19 [History] Budesonide/Formoterol Fumarate [Symbicort 160-4.5 Mcg Inhaler] 2 puff INHALATION RT-BID 04/12/19 [History] Calcium Carbonate [Calcium] 600 mg PO DAILY 04/12/19 [History] Candesartan [Atacand] 8 mg PO DAILY 04/12/19 [History] Multivitamins, Thera [Multivitamin (formulary)] 1 tab PO DAILY 04/12/19 [History] Triamterene-Hctz 37.5-25Mg [Maxzide 37.5-25] 1 tab PO DAILY 04/12/19 [History] Umeclidinium Elwell [Incruse Ellipta] 1 puff INHALATION RT-DAILY 04/12/19 [History] Vitamin D3(Unknown Dose) 1 tab PO DAILY 04/12/19 [History] Famotidine [Pepcid] 20 mg PO BID #30 tab 04/15/19 [Rx] Ipratropium-Albuterol Nebulize [Duoneb 0.5 mg-3 mg/3 ml Soln] 3 ml INHALATION QID #120 neb 04/15/19 [Rx] Levofloxacin [Levaquin] 750 mg PO DAILY #7 tab 04/15/19 [Rx] Montelukast [Singulair] 10 mg PO HS #30 tab 04/15/19 [Rx] Nicotine 21Mg/24Hr Patch [Habitrol] 1 each TRANSDERM DAILY #63 patch 04/15/19 [Rx] predniSONE 0 mg PO DIRECTED #30 tab 04/15/19 [Rx] Follow up Appointment(s)/Referral(s): Paras Smallwood MD [Primary Care Provider] - 1 Week (Patient to call Dr. Smallwood' office morning to schedule follow up appointment. The office is closed at time of discharge.) Kavin Rodriguez MD [STAFF PHYSICIAN] - 1 Week (Patient to call Dr. Rodriguez's office to schedule follow up appointment. The office is closed at time of discharge.) Patient Instructions/Handouts: Famotidine (By mouth), Prednisone (By mouth), Ni cotine (Absorbed through the skin), Levofloxacin (By mouth), Ipratropium/Albuterol (By breathing), Montelukast (By mouth), COPD (Chronic Obstructive Pulmonary Disease) (DC), Pneumonia (DC) Discharge Disposition: HOME SELF-CARE
[2019-04-16] MEDS ORDERED: LEVOFLOXACIN 750 MG TAB PO SCH (09:00)
--- NOTE | 2019-04-16 13:09 | CDI ---
Documentation Clarification Form Date: 04/16/19 From: [place] Phone: If you have a question regarding this query, please contact Anjana Batres at [phone] Admit Date: 04/12/2019 5:05:00 PM Patient Name: Suzanne Hoffman Visit Number: [id number] Discharge Date: 04/15/2019 3:50:00 PM ATTENTION: The Clinical Documentation Specialists (CDI) and [facility] Coding Staff appreciate your assistance in clarifying documentation. Please respond to the clarification below the line at the bottom and electronically sign. The CDI & [facility] Coding staff will review the response and follow-up if needed. Please note: Queries are made part of the Legal Health Record. If you have any questions, please contact the author of this message via ITS. Dr. Bindu Mcallister The patient presented with the following respiratory symptoms: congestion and shortness of breath. History/Risk Factors: Patient admitted for pneumonia, copd exacerbation and asthma exacerbation. Tobacco use: Current cigarette smoker. Home oxygen: No home oxygen Clinical Indicators: Shortness of breath wheezing Vital signs: T. 100.1, P. 105, R. 28, BP 96/55 Pulse oximetry: 94% on room air then down to 91% 7 hours later Lung/Breathing assessment: dyspnea, Patient able to speak in full sentences, no respiratory distress, expiratory wheeze, no accessory muscle usage, no intercostal retractions. Breathing tx: Duoneb, Pulmicort O2: 2 L per nasal cannula Consult: Dr. Tang documented acute on chronic hypoxic respiratory failure in his 04/14 progress note. In your professional opinion, can you please clarify if these findings signify one of the following conditions related to this hospital visit? Chronic Respiratory Failure Acute on chronic Respiratory Failure (further specify-if known): With hypercapnia? (pCO2 >50 and pH <7.35) With hypoxia? (pO2 <60 mm Hg or SpO2 <91% on room air) Respiratory Distress Other Diagnosis, please specify Unable to determine NO Respiratory Failure MTDD
== END 2019-04-15 15:50 | disposition home or self-care (01) | DRG 871 ==
LOC: EC 15:09 → 3NMEDONC 17:05
PROVIDERS: ADMIT Internal Medicine; ATTEND Internal Medicine
DX: A41.9 Sepsis, unspecified organism (principal); J18.1 Lobar pneumonia, unspecified organism; J96.21 Acute and chronic respiratory failure with hypoxia; J44.0 Chronic obstructive pulmonary disease with (acute) lower respiratory infection; J44.1 Chronic obstructive pulmonary disease with (acute) exacerbation; J45.51 Severe persistent asthma with (acute) exacerbation; J98.11 Atelectasis; I11.9 Hypertensive heart disease without heart failure; F17.210 Nicotine dependence, cigarettes, uncomplicated; T38.0X5A Adverse effect of glucocorticoids and synthetic analogues, initial encounter; R73.9 Hyperglycemia, unspecified; R19.7 Diarrhea, unspecified; Z79.51 Long term (current) use of inhaled steroids; Z79.899 Other long term (current) drug therapy; Z88.0 Allergy status to penicillin; Z88.8 Allergy status to other drugs, medicaments and biological substances; Z80.1 Family history of malignant neoplasm of trachea, bronchus and lung; Z80.51 Family history of malignant neoplasm of kidney
CPT/HCPCS: 36415; 71046; 71250; 80053; 83036; 83605; 85025; 85379; 87040; 93005; 94640; 94760; 96361; 96365; 96375; 99291

== ENCOUNTER 2019-06-10 12:16 | Emergency (ER) | payer MEDICARE, OTHER ==
[2019-06-10] MEDS ORDERED: MAGNESIUM SULFATE-D5W PMX 1 GM in DEXTROSE/WATER 1 100ML.BAG IVPB STA (12:44)
[2019-06-10] MEDS ORDERED: methylPREDNISolone SOD SUCCI 125 MG/2 ML VIAL IV STA (12:44)
[2019-06-10] MEDS ORDERED: ALBUTEROL NEBULIZED 2.5 MG/3 ML INHALATION STA (12:44)
[2019-06-10] MEDS ORDERED: IPRATROPIUM 0.5 MG/2.5 ML NEBU INHALATION STA (12:44)
[2019-06-10 13:40] LABS: Basophils # (A) 0.1 k/uL (0-0.2); Basophils % (A) 1 %; Eosinophils # (A) 0.3 k/uL (0-0.7); Eosinophils % (A) 2 %; HCT 44.7 % (34.0-46.0); Lymphocytes # (A) 2.2 k/uL (1.0-4.8); Lymphocytes % (A) 15 %; MCH 31.2 pg (25.0-35.0); MCHC 33.6 g/dL (31.0-37.0); Mean Platelet Volume 5.6; Monocytes # (A) 0.8 k/uL (0-1.0); Monocytes % (A) 6 %; Neutrophils # (A) 10.5 k/uL (1.3-7.7); Neutrophils % (A) 75 %; Platelet Count 381 k/uL (150-450); RBC 4.81 m/uL (3.80-5.40); RDW 14.3 % (11.5-15.5); WBC 14.1 k/uL (3.8-10.6)
[2019-06-10 13:45] LABS: ALT 26 U/L (9-52); AST 27 U/L (14-36); African American GFR (CKD) >90 (>60 ml/min/1.73 sqM); Albumin 4.6 g/dL (3.5-5.0); Alkaline Phosphatase 83 U/L (38-126); Anion Gap 12 mmol/L; Blood Urea Nitrogen 15 mg/dL (7-17); Calcium 10.3 mg/dL (8.4-10.2); Carbon Dioxide 26 mmol/L (22-30); Chloride 99 mmol/L (98-107); Glucose 104 mg/dL (74-99); Magnesium 1.8 mg/dL (1.6-2.3); Potassium 3.9 mmol/L (3.5-5.1); Sodium 137 mmol/L (137-145); Total Bilirubin 0.6 mg/dL (0.2-1.3); Total Protein 7.2 g/dL (6.3-8.2)
[2019-06-10 13:57] LABS: INR 0.9 (<1.2); Prothrombin Time 9.6 sec (9.0-12.0)
--- NOTE | 2019-06-10 14:34 | XR ---
EXAMINATION TYPE: XR chest 2V DATE OF EXAM: 06/10/2019 COMPARISON: 04/13/2019 INDICATION: Cough and shortness of breath for several days TECHNIQUE: Frontal and lateral views of the chest are obtained. FINDINGS: The heart size is normal. The pulmonary vasculature is normal. On the lateral projection there is some mild increased density within the anterior chest adjacent to the major fissure may be some right middle lobe infiltrate.. Previous right lower lobe infiltrate rich s resolved. IMPRESSION: 1. Clinical correlation recommended for mild right middle lobe atelectasis.
[2019-06-10] MEDS ORDERED: LEVOFLOXACIN 750 MG TAB PO STA (16:09)
--- NOTE | 2019-06-10 16:09 | ED ---
SOB HPI - General Chief Complaint: Shortness of Breath Stated Complaint: SOB Time Seen by Provider: 06/10/19 12:32 Source: patient Mode of arrival: ambulatory Limitations: no limitations - History of Present Illness Initial Comments: Patient complains of shortness of breath. She has a history of COPD. She has no chest pain or tightness or pressure. She has no belly or back pain. She has no nausea or vomiting. She has no pain or swelling in the arms or legs. She has no focal weakness. She has no lightheadedness or dizziness. She denies syncope. - Related Data Home Medications Medication Instructions Recorded Confirmed Albuterol Inhaler [Ventolin Hfa 1 - 2 puff INHALATION RT-Q6H 04/12/19 06/10/19 Inhaler] Budesonide/Formoterol Fumarate 2 puff INHALATION RT-BID 04/12/19 06/10/19 [Symbicort 160-4.5 Mcg Inhaler] Candesartan [Atacand] 8 mg PO DAILY 04/12/19 06/10/19 Triamterene-Hctz 37.5-25Mg 1 tab PO DAILY 04/12/19 06/10/19 [Maxzide 37.5-25] Umeclidinium [place] [Incruse 1 puff INHALATION RT-DAILY@1200 04/12/19 06/10/19 Ellipta] Ipratropium-Albuterol Nebulize 3 ml INHALATION RT-QID 06/10/19 06/10/19 [Duoneb 0.5 mg-3 mg/3 ml Soln] predniSONE See Taper PO DAILY 06/10/19 06/10/19 Previous Rx's Medication Instructions Recorded Montelukast [Singulair] 10 mg PO HS #30 tab 04/15/19 Levofloxacin [Levaquin] 750 mg PO DAILY 5 Days #5 tab 06/10/19 Allergies Allergy/AdvReac Type Severity Reaction Status Date / Time lisinopril Allergy Rash/Hives Verified 06/10/19 12:42 mercury (elemental) Allergy Rash/Hives Verified 06/10/19 12:42 metoprolol Allergy Rash/Hives Verified 06/10/19 12:42 penicillin V Allergy Anaphylaxis Verified 06/10/19 12:42 pseudoephedrine Allergy Rapid Verified 06/10/19 12:42 [From Sudafed] Heart Rate Review of Systems ROS Statement: Those systems with pertinent positive or pertinent negative responses have been documented in the HPI. ROS Other: All systems not noted in ROS Statement are negative. Past Medical History Past Medical History: COPD, Hypertension, Pneumonia History of Any Multi-Drug Resistant Organisms: None Reported Past Surgical History: Tonsillectomy Additional Past Surgical History / Comment(s): hernia repair. Past Psychological History: No Psychological Hx Reported Smoking Status: Current every day smoker Past Alcohol Use History: None Reported Past Drug Use History: None Reported - Past Family History Father Additional Family Medical History / Comment(s): Father at age 68 from kidney cancer. He also had lung cancer. Patient was exposed to toxic chemicals thought to cause kidney cancer. Mother Additional Family Medical History / Comment(s): Mother at age 54 from gangrene. She was not diabetic. Sister(s) Additional Family Medical History / Comment(s): The patient has one sister and she has had no contact with her for 20 years. Patient does not have any brothers. Patient has 4 children with no major medical problems. General Exam Limitations: no limitations General appearance: alert, in no apparent distress Head exam: Present: atraumatic, normocephalic, normal inspection Eye exam: Present: normal appearance, PERRL, EOMI. Absent: scleral icterus, conjunctival injection, periorbital swelling ENT exam: Present: normal exam, mucous membranes moist Neck exam: Present: normal inspection. Absent: tenderness, meningismus, lymphadenopathy Respiratory exam: Present: normal lung sounds bilaterally, wheezes. Absent: respiratory distress, rales, rhonchi, stridor Cardiovascular Exam: Present: regular rate, normal rhythm, normal heart sounds. Absent: systolic murmur, diastolic murmur, rubs, gallop, clicks GI/Abdominal exam: Present: soft, normal bowel sounds. Absent: distended, tenderness, guarding, rebound, rigid Extremities exam: Present: normal inspection, full ROM, normal capillary refill. Absent: tenderness, pedal edema, joint swelling, calf tenderness Back exam: Present: normal inspection Neurological exam: Present: alert, oriented X3, CN II-XII intact Psychiatric exam: Present: normal affect, normal mood Skin exam: Present: warm, dry, intact, normal color. Absent: rash Course Vital Signs 06/10/19 06/10/1919 12:23 13:19 13:26 Temperature 97.6 F Pulse Rate 112 H 114 H 95 Respiratory 24 34 H Rate Blood Pressure 139/63 104/56 O2 Sat by Pulse 90 L 92 L Oximetry 06/10/19 06/10/19 13:43 14:30 Temperature Pulse Rate 118 H 112 H Respiratory 28 H Rate Blood Pressure 95/50 O2 Sat by Pulse 94 L Oximetry Medical Decision Making - Medical Decision Making Patient presents with trouble breathing. I gave her breathing treatments, IV steroids and magnesium. She is feeling much better. Two-view chest x-ray shows atelectasis or possible pneumonia in the right middle lobe. Therefore I gave her dose of antibiotics and prescription for antibiotics. I offered the patient admission to the hospital if she wasn't feeling well. However she states that she would prefer to go home with oral antibiotic. She does not want to stay in the hospital. I did offer her admission the second time. She still would prefer to go home. I instructed her to follow-up with her primary care doctor within 2 days and to return to the ER for symptoms worsen or she develops any other problems or complaints. - Lab Data Result diagrams: 06/10/19 13:14 06/10/19 13:14 Lab Results 06/10/19 06/10/19 06/10/19 Range/Units 13:14 13:14 13:14 WBC 14.1 H (3.8-10.6) k/uL RBC 4.81 (3.80-5.40) m/uL Hgb 15.0 (11.4-16.0) gm/dL Hct 44.7 (34.0-46.0) % MCV 93.0 (80.0-100.0) fL MCH 31.2 (25.0-35.0) pg MCHC 33.6 (31.0-37.0) g/dL RDW 14.3 (11.5-15.5) % Plt Count 381 (150-450) k/uL Neutrophils % 75 % Lymphocytes % 15 % Monocytes % 6 % Eosinophils % 2 % Basophils % 1 % Neutrophils # 10.5 H (1.3-7.7) k/uL Lymphocytes # 2.2 (1.0-4.8) k/uL Monocytes # 0.8 (0-1.0) k/uL Eosinophils # 0.3 (0-0.7) k/uL Basophils # 0.1 (0-0.2) k/uL PT (9.0-12.0) sec INR (<1.2) APTT (22.0-30.0) sec Sodium 137 (137-145) mmol/L Potassium 3.9 (3.5-5.1) mmol/L Chloride 99 (98-107) mmol/L Carbon Dioxide 26 (22-30) mmol/L Anion Gap 12 mmol/L BUN 15 (7-17) mg/dL Creatinine 0.50 L (0.52-1.04) mg/dL Est GFR (CKD-EPI)AfAm >90 (>60 ml/min/1.73 sqM) Est GFR (CKD-EPI)NonAf >90 (>60 ml/min/1.73 sqM) Glucose 104 H (74-99) mg/dL Calcium 10.3 H (8.4-10.2) mg/dL Magnesium 1.8 (1.6-2.3) mg/dL Total Bilirubin 0.6 (0.2-1.3) mg/dL AST 27 (14-36) U/L ALT 26 (9-52) U/L Alkaline Phosphatase 83 (38-126) U/L Troponin I (0.000-0.034) ng/mL NT-Pro-B Natriuret Pep 68 pg/mL Total Protein 7.2 (6.3-8.2) g/dL Albumin 4.6 (3.5-5.0) g/dL 06/10/19 06/10/19 Range/Units 13:14 13:14 WBC (3.8-10.6) k/uL RBC (3.80-5.40) m/uL Hgb (11.4-16.0) gm/dL Hct (34.0-46.0) % MCV (80.0-100.0) fL MCH (25.0-35.0) pg MCHC (31.0-37.0) g/dL RDW (11.5-15.5) % Plt Count (150-450) k/uL Neutrophils % % Lymphocytes % % Monocytes % % Eosinophils % % Basophils % % Neutrophils # (1.3-7.7) k/uL Lymphocytes # (1.0-4.8) k/uL Monocytes # (0-1.0) k/uL Eosinophils # (0-0.7) k/uL Basophils # (0-0.2) k/uL PT 9.6 (9.0-12.0) sec INR 0.9 (<1.2) APTT 23.0 (22.0-30.0) sec Sodium (137-145) mmol/L Potassium (3.5-5.1) mmol/L Chloride (98-107) mmol/L Carbon Dioxide (22-30) mmol/L Anion Gap mmol/L BUN (7-17) mg/dL Creatinine (0.52-1.04) mg/dL Est GFR (CKD-EPI)AfAm (>60 ml/min/1.73 sqM) Est GFR (CKD-EPI)NonAf (>60 ml/min/1.73 sqM) Glucose (74-99) mg/dL Calcium (8.4-10.2) mg/dL Magnesium (1.6-2.3) mg/dL Total Bilirubin (0.2-1.3) mg/dL AST (14-36) U/L ALT (9-52) U/L Alkaline Phosphatase (38-126) U/L Troponin I <0.012 (0.000-0.034) ng/mL NT-Pro-B Natriuret Pep pg/mL Total Protein (6.3-8.2) g/dL Albumin (3.5-5.0) g/dL 06/10/19 16:07 twelve-lead EKG shows ventricular rate 98 bpm, normal [place] interval and Tobias complexes, no ST elevation or depression, interpreted me as normal sinus rhythm. Disposition Clinical Impression: COPD (chronic obstructive pulmonary disease) Disposition: HOME SELF-CARE Condition: Good Instructions (If sedation given, give patient instructions): Emphysema (ED) Prescriptions: Levofloxacin [Levaquin] 750 mg PO DAILY 5 Days #5 tab Is patient prescribed a controlled substance at d/c from ED?: No Referrals: Paras Smallwood MD [Primary Care Provider] - 1-2 days
[2019-06-10 16:35] VITALS: BP 127/63; PULSE 96; RESP 26; TEMP 98
== END 2019-06-10 16:38 | disposition home or self-care (01) ==
LOC: EC 12:16
DX: J44.9 Chronic obstructive pulmonary disease, unspecified (principal); I10 Essential (primary) hypertension; F17.200 Nicotine dependence, unspecified, uncomplicated; Z88.0 Allergy status to penicillin; Z88.8 Allergy status to other drugs, medicaments and biological substances; Z91.048 Other nonmedicinal substance allergy status; Z79.51 Long term (current) use of inhaled steroids; Z79.899 Other long term (current) drug therapy; Z87.01 Personal history of pneumonia (recurrent); Z80.1 Family history of malignant neoplasm of trachea, bronchus and lung
CPT/HCPCS: 36415; 94640; 93005; 83880; 80053; 83735; 84484; 85025; 85610; 85730; 71046; 99285; 96365; 96375; J2930; J3475

== ENCOUNTER 2019-06-13 16:56 | Inpatient (IN) | payer MEDICARE, OTHER ==
[2019-06-13] MEDS ORDERED: ALBUTEROL NEBULIZED 2.5 MG/3 ML INHALATION STA ×2 (17:12→18:40)
[2019-06-13] MEDS ORDERED: IPRATROPIUM-ALBUTEROL 3 ML NEB INHALATION STA ×3 (17:12→18:41)
[2019-06-13] MEDS ORDERED: DEXAMETHASONE SOD PHOSPHATE 10 MG/ML 1 ML VIAL IV STA (17:17)
[2019-06-13] MEDS ORDERED: AZITHROMYCIN 500 MG in SODIUM CHLORIDE 0.9% 250 ML IVPB STA (17:17)
--- NOTE | 2019-06-13 17:36 | ED ---
General Adult HPI - General Chief complaint: Shortness of Breath Stated complaint: Sob Time Seen by Provider: 06/13/19 17:14 Source: patient Mode of arrival: wheelchair Limitations: no limitations - History of Present Illness Initial comments: Dictation was produced using [employer] dictation software. please excuse any grammatical, word or spelling errors. Chief Complaint: 69-year-old male presents with dyspnea. History of Present Illness: 69-year-old female presents with shortness of breath for the past several hours. Patient has extensive history of COPD. Patient was recently seen in the emergency department 3 days ago for the same complaint. She reports that she's been suffering from URI symptoms for the last couple days. She has Raynaud's sore throat and cough. Patient has any chest pain. Other complaints at this time. The ROS documented in this emergency department record has been reviewed and confirmed by me. Those systems with pertinent positive or negative responses have been documented in the HPI. All other systems are other negative and/or noncontributory. PHYSICAL EXAM: General Impression: Alert and oriented x3, dyspneic HEENT: Normocephalic atraumatic, extra-ocular movements intact, pupils equal and reactive to light bilaterally, mucous membranes moist. Cardiovascular: Heart regular rate and rhythm, S1&S2 audible, no murmurs, rubs or gallops Chest: Diffuse wheezing Abdomen: Bowel sounds present, abdomen soft, non-tender, non-distended, no organomegaly Musculoskeletal: Pulses present and equal in all extremities, no peripheral edema Motor: no focal deficits noted Neurological: CN II-XII grossly intact, no focal motor or sensory deficits noted Skin: Intact with no visualized rashes Psych: Normal affect and mood ED course: 69-year-old female presents with clinical presentation consistent with COPD exacerbation. All signs upon arrival shows a 9% on room air, respiratory rate 26 with a heart rate of 109. Patient is afebrile Laboratory evaluation obtained. CBC unremarkable. Potassium 5.4 with slight hemolysis. Patient asked likely normal. Rest of labs are unremarkable. X-ray shows right lower lobe pneumonia that's worse than before. Patient states that she was in the hospital however want to be discharge. He was given a prescription for Levaquin however wasn't compliant with it. Patient states she's been worse in terms of her breathing. Patient given multiple breathing treatments. She was also given steroids. She started on antibiotic for community acquired pneumonia. Patient be admitted for hypoxic respiratory failure, COPD exacerbation and pneumonia. Pending discussion with Dr. Turner. EKG interpretation: Ventricular rate 94, normal sinus rhythm,. Interval 114, Q 70, QTc 460. No IN prolongation, no QTC prolongation, no ST or T-wave changes noted. Overall, this EKG is unremarkable - Related Data Home Medications Medication Instructions Recorded Confirmed Albuterol Inhaler [Ventolin Hfa 1 - 2 puff INHALATION RT-Q6H 04/12/19 06/13/19 Inhaler] Budesonide/Formoterol Fumarate 2 puff INHALATION RT-BID 04/12/19 06/13/19 [Symbicort 160-4.5 Mcg Inhaler] Candesartan [Atacand] 8 mg PO DAILY 04/12/19 06/13/19 Triamterene-Hctz 37.5-25Mg 1 tab PO DAILY 04/12/19 06/13/19 [Maxzide 37.5-25] Umeclidinium [employer] [Incruse 1 puff INHALATION RT-DAILY@1200 04/12/19 06/13/19 Ellipta] Ipratropium-Albuterol Nebulize 3 ml INHALATION RT-QID 06/10/19 06/13/19 [Duoneb 0.5 mg-3 mg/3 ml Soln] predniSONE See Taper PO DAILY 06/10/19 06/13/19 Previous Rx's Medication Instructions Recorded Montelukast [Singulair] 10 mg PO HS #30 tab 04/15/19 Levofloxacin [Levaquin] 750 mg PO DAILY 5 Days #5 tab 06/10/19 Allergies Allergy/AdvReac Type Severity Reaction Status Date / Time lisinopril Allergy Rash/Hives Verified 06/13/19 17:03 mercury (elemental) Allergy Rash/Hives Verified 06/13/19 17:03 metoprolol Allergy Rash/Hives Verified 06/13/19 17:03 penicillin V Allergy Anaphylaxis Verified 06/13/19 17:03 pseudoephedrine Allergy Rapid Verified 06/13/19 17:03 [From Sudafed] Heart Rate Review of Systems ROS Statement: Those systems with pertinent positive or pertinent negative responses have been documented in the HPI. ROS Other: All systems not noted in ROS Statement are negative. Past Medical History Past Medical History: COPD, Hypertension, Pneumonia History of Any Multi-Drug Resistant Organisms: None Reported Past Surgical History: Tonsillectomy Additional Past Surgical History / Comment(s): hernia repair. Past Psychological History: No Psychological Hx Reported Smoking Status: Current every day smoker Past Alcohol Use History: None Reported Past Drug Use History: None Reported - Past Family History Father Additional Family Medical History / Comment(s): Father at age 68 from kidney cancer. He also had lung cancer. Patient was exposed to toxic chemicals thought to cause kidney cancer. Mother Additional Family Medical History / Comment(s): Mother at age 54 from gangrene. She was not diabetic. Sister(s) Additional Family Medical History / Comment(s): The patient has one sister and she has had no contact with her for 20 years. Patient does not have any brothers. Patient has 4 children with no major medical problems. General Exam Limitations: no limitations Course Vital Signs 06/13/19 06/13/19 06/13/19 16:57 17:17 17:29 Temperature 98.1 F Pulse Rate 109 H 104 H 112 H Respiratory 26 H Rate Blood Pressure 158/108 O2 Sat by Pulse 89 L Oximetry 06/13/19 06/13/19 18:44 19:02 Temperature Pulse Rate 110 H 116 H Respiratory Rate Blood Pressure O2 Sat by Pulse Oximetry Medical Decision Making - Lab Data Result diagrams: 06/13/19 17:38 06/13/19 17:38 Lab Results 06/13/19 06/13/19 Range/Units 17:38 17:38 WBC 6.8 (3.8-10.6) k/uL RBC 4.69 (3.80-5.40) m/uL Hgb 14.9 (11.4-16.0) gm/dL Hct 44.0 (34.0-46.0) % MCV 93.7 (80.0-100.0) fL MCH 31.7 (25.0-35.0) pg MCHC 33.9 (31.0-37.0) g/dL RDW 14.3 (11.5-15.5) % Plt Count 366 (150-450) k/uL Neutrophils % 74 % Lymphocytes % 16 % Monocytes % 8 % Eosinophils % 0 % Basophils % 1 % Neutrophils # 5.1 (1.3-7.7) k/uL Lymphocytes # 1.1 (1.0-4.8) k/uL Monocytes # 0.5 (0-1.0) k/uL Eosinophils # 0.0 (0-0.7) k/uL Basophils # 0.0 (0-0.2) k/uL Sodium 134 L (137-145) mmol/L Potassium 5.4 H (3.5-5.1) mmol/L Chloride 97 L (98-107) mmol/L Carbon Dioxide 26 (22-30) mmol/L Anion Gap 11 mmol/L BUN 15 (7-17) mg/dL Creatinine 0.51 L (0.52-1.04) mg/dL Est GFR (CKD-EPI)AfAm >90 (>60 ml/min/1.73 sqM) Est GFR (CKD-EPI)NonAf >90 (>60 ml/min/1.73 sqM) Glucose 122 H (74-99) mg/dL Calcium 10.0 (8.4-10.2) mg/dL Magnesium 1.8 (1.6-2.3) mg/dL Total Bilirubin 0.8 (0.2-1.3) mg/dL AST 32 (14-36) U/L ALT 28 (9-52) U/L Alkaline Phosphatase 65 (38-126) U/L Total Protein 7.2 (6.3-8.2) g/dL Albumin 4.5 (3.5-5.0) g/dL Disposition Clinical Impression: Pneumonia, COPD exacerbation Disposition: ADMITTED IP TO THIS HOSP Condition: Fair Referrals: Paras Smallwood MD [Primary Care Provider] - 1-2 days Decision Time: 19:08
--- NOTE | 2019-06-13 18:09 | XR ---
EXAMINATION TYPE: XR chest 1V portable DATE OF EXAM: 06/13/2019 COMPARISON: 06/10/2019 HISTORY: Short of breath TECHNIQUE: Single frontal view of the chest is obtained. FINDINGS: There is some increased density at the right cardiac border consistent with right middle l obe pneumonia and atelectasis. Left lung is clear. There is no heart failure. Heart size is normal. IMPRESSION: Right middle lobe pneumonia is increased compared to last exam. No heart failure.
[2019-06-13 18:36] LABS: Basophils % (A) 1 %; Eosinophils % (A) 0 %; HGB 14.9 gm/dL (11.4-16.0); Lymphocytes # (A) 1.1 k/uL (1.0-4.8); Lymphocytes % (A) 16 %; MCH 31.7 pg (25.0-35.0); MCHC 33.9 g/dL (31.0-37.0); MCV 93.7 fL (80.0-100.0); Mean Platelet Volume 5.8; Monocytes # (A) 0.5 k/uL (0-1.0); Monocytes % (A) 8 %; Neutrophils # (A) 5.1 k/uL (1.3-7.7); Neutrophils % (A) 74 %; Platelet Count 366 k/uL (150-450); RBC 4.69 m/uL (3.80-5.40); RDW 14.3 % (11.5-15.5); WBC 6.8 k/uL (3.8-10.6)
[2019-06-13 18:43] LABS: ALT 28 U/L (9-52); AST 32 U/L (14-36); African American GFR (CKD) >90 (>60 ml/min/1.73 sqM); Albumin 4.5 g/dL (3.5-5.0); Alkaline Phosphatase 65 U/L (38-126); Anion Gap 11 mmol/L; Blood Urea Nitrogen 15 mg/dL (7-17); Carbon Dioxide 26 mmol/L (22-30); Chloride 97 mmol/L (98-107); Glucose 122 mg/dL (74-99); Magnesium 1.8 mg/dL (1.6-2.3); Sodium 134 mmol/L (137-145); Total Bilirubin 0.8 mg/dL (0.2-1.3); Total Protein 7.2 g/dL (6.3-8.2)
[2019-06-13 18:50] LABS: Potassium 5.4 mmol/L (3.5-5.1)
[2019-06-13] MEDS ORDERED: PNEUMONIA PROTOCOL UTILIZED 1 EACH MISC PO PRN (19:05)
[2019-06-13] MEDS: SODIUM CHLORIDE 0.9% 1,000 ML IV SCH (19:55)
[2019-06-13] MEDS: PANTOPRAZOLE 40 MG/10 ML VIAL IVP SCH (22:25)
[2019-06-13] MEDS: MONTELUKAST 10 MG TAB PO SCH (22:25)
[2019-06-13] MEDS: methylPREDNISolone SOD SUCCI 125 MG/2 ML VIAL IV SCH (22:25)
[2019-06-13] MEDS: HEPARIN SODIUM,PORCINE 5,000 UNIT/ML 1 ML VIAL SQ SCH (22:25)
[2019-06-13] MEDS: guaiFENesin 600 MG TABLET.ER PO SCH (22:25)
[2019-06-13 22:47] VITALS: BMI 28.0
[2019-06-13] MEDS: IPRATROPIUM-ALBUTEROL 3 ML NEB INHALATION SCH (22:49)
[2019-06-14] MEDS: IPRATROPIUM-ALBUTEROL 3 ML NEB INHALATION SCH ×6 (02:51→20:19)
[2019-06-14] MEDS: SODIUM CHLORIDE 0.9% 1,000 ML IV SCH ×2 (05:53→18:12)
[2019-06-14] MEDS: methylPREDNISolone SOD SUCCI 125 MG/2 ML VIAL IV SCH ×4 (05:53→23:27)
[2019-06-14 05:59] LABS: Glucose,Whole Blood 140 mg/dL (75-99)
[2019-06-14] MEDS: INSULIN ASPART (NovoLOG) 100 UNIT/ML VIAL SQ SCH ×4 (06:13→20:38)
--- NOTE | 2019-06-14 06:46 | XR ---
EXAMINATION TYPE: XR chest 2V DATE OF EXAM: 06/14/2019 HISTORY: pneumonia. REFERENCE: Previous study dated 06/13/2019. FINDINGS: The lungs are overinflated but clear. Pleural spaces are clear. Heart size is within normal limits. IMPRESSION: COPD.
[2019-06-14 06:57] LABS: ALT 28 U/L (9-52); AST 19 U/L (14-36); African American GFR (CKD) >90 (>60 ml/min/1.73 sqM); Albumin 3.6 g/dL (3.5-5.0); Alkaline Phosphatase 61 U/L (38-126); Anion Gap 7 mmol/L; Blood Urea Nitrogen 12 mg/dL (7-17); Calcium 9.2 mg/dL (8.4-10.2); Carbon Dioxide 28 mmol/L (22-30); Chloride 103 mmol/L (98-107); Glucose 140 mg/dL (74-99); Potassium 4.1 mmol/L (3.5-5.1); Sodium 138 mmol/L (137-145); Total Bilirubin 0.5 mg/dL (0.2-1.3); Total Protein 5.8 g/dL (6.3-8.2)
[2019-06-14] MEDS: BUDESONIDE 0.5 MG/2 ML NEBU INHALATION SCH ×2 (07:15→20:19)
[2019-06-14] MEDS ORDERED: IPRATROPIUM-ALBUTEROL 3 ML NEB INHALATION SCH (08:00)
[2019-06-14] MEDS: LOSARTAN 50 MG TAB PO SCH ×2 (08:41→10:30)
[2019-06-14] MEDS: guaiFENesin 600 MG TABLET.ER PO SCH ×2 (08:41→20:37)
[2019-06-14] MEDS: TRIAMTERENE-HCTZ 37.5-25MG 1 EACH TAB PO SCH (08:41)
[2019-06-14] MEDS: PANTOPRAZOLE 40 MG/10 ML VIAL IVP SCH (08:42)
[2019-06-14] MEDS: NICOTINE 21MG/24HR PATCH TRANSDERM SCH (08:42)
[2019-06-14] MEDS: HEPARIN SODIUM,PORCINE 5,000 UNIT/ML 1 ML VIAL SQ SCH ×2 (08:42→20:37)
[2019-06-14] MEDS: CANDESARTAN 16 MG PO SCH (09:20)
--- NOTE | 2019-06-14 10:48 | P.HPIM ---
History of Present Illness H&P Date: 06/14/19 Chief Complaint: COPD exacerbation This is a 69-year-old female patient of Dr. Smallwood with a past medical history of COPD, hypertension, tobacco use and dependence at one pack per day for 30-40 years, came to the ER at [facility] with increased shrtness of breath and increased coughing that started few days ago associated with the minimal phlegm production she denies any chest pain at that however she was extreme short of breath with little ambulation so she was seen in the ER had a chest x-ray showed COPD without evidence of acute infiltrate, she was started on IV Solu-Medrol 60 mg IV push every 6 hours, along with Pulmicort 1 mg nebulization twice every day and DuoNeb 3 mL nebulization 4 times every day, pulmonary consultation. Review of Systems Constitutional: Denies anorexia, Denies chronic headaches, Denies lethargy, Denies weakness, Denies weight gain Eyes: denies blurred vision, denies bulging eye, denies decreased vision Ears: deny: decreased hearing Ears, nose, mouth and throat: Denies dysphagia, Denies neck lump, Denies swelling in throat, Denies sore throat Cardiovascular: Reports decreased exercise tolerance, Reports dyspnea on exertion, Reports shortness of breath, Denies chest pain, Denies edema, Denies lightheadedness, Denies rapid heart beat, Denies syncope Respiratory: Reports cough, Reports cough with sputum, Reports dyspnea, Reports respiratory infections, Reports wheezing, Denies congestion, Denies home oxygen, Denies sleep apnea, Denies snoring Gastrointestinal: Denies abdominal pain, Denies bloating, Denies BRBPR, Denies loss of appetite, Denies melena, Denies nausea, Denies vomiting Genitourinary: Denies dysuria, Denies hematuria Musculoskeletal: Denies myalgias Musculoskeletal: absent: ankle pain, ankle stiffness, ankle swelling, elbow haley n, elbow stiffness, elbow swelling, foot pain, foot stiffness, foot swelling, hand pain, hand stiffness, hand swelling, hip pain, hip stiffness, hip swelling, knee pain, knee stiffness, knee swelling, shoulder pain, shoulder stiffness, shoulder swelling, wrist pain, wrist stiffness, wrist swelling Integumentary: Denies pruritus, Denies rash Neurological: Denies numbness, Denies weakness Psychiatric: Denies anxiety, Denies depression Endocrine: Denies fatigue, Denies weight change Past Medical History Past Medical History: COPD, Hypertension, Pneumonia History of Any Multi-Drug Resistant Organisms: None Reported Past Surgical History: Tonsillectomy Additional Past Surgical History / Comment(s): hernia repair. Past Anesthesia/Blood Transfusion Reactions: No Reported Reaction Past Psychological History: No Psychological Hx Reported Smoking Status: Current every day smoker Past Alcohol Use History: None Reported Additional Past Alcohol Use History / Comment(s): Patient is a smoker of one pack per day for 30-40 years. She denies any marijuana, street drug or alcohol use. She is retired baggage agent. She lives at home with significant other. She does not have a nebulizer, oxygen, CPAP. Past Drug Use History: None Reported - Past Family History Father Additional Family Medical History / Comment(s): Father at age 68 from kidney cancer. He also had lung cancer. Patient was exposed to toxic chemicals thought to cause kidney cancer. Mother Additional Family Medical History / Comment(s): Mother at age 54 from gangrene. She was not diabetic. Sister(s) Additional Family Medical History / Comment(s): The patient has one sister and she has had no contact with her for 20 years. Patient does not have any brothers. Patient has 4 children with no major medical problems. Medications and Allergies Home Medications Medication Instructions Recorded Confirmed Type Albuterol Inhaler [Ventolin Hfa 1 - 2 puff INHALATION RT-Q6H 04/12/19 06/13/19 History Inhaler] Budesonide/Formoterol Fumarate 2 puff INHALATION RT-BID 04/12/19 06/13/19 Hi story [Symbicort 160-4.5 Mcg Inhaler] Candesartan [Atacand] 8 mg PO DAILY 04/12/19 06/13/19 History Triamterene-Hctz 37.5-25Mg 1 tab PO DAILY 04/12/19 06/13/19 History [Maxzide 37.5-25] Umeclidinium Rudolph [Incruse 1 puff INHALATION RT-DAILY@1200 04/12/19 06/13/19 History Ellipta] Montelukast [Singulair] 10 mg PO HS #30 tab 04/15/19 06/13/19 Rx Ipratropium-Albuterol Nebulize 3 ml INHALATION RT-QID 06/10/19 06/13/19 History [Duoneb 0.5 mg-3 mg/3 ml Soln] Levofloxacin [Levaquin] 750 mg PO DAILY 5 Days #5 tab 06/10/19 06/13/19 Rx predniSONE See Taper PO DAILY 06/10/19 06/13/19 History Allergies Allergy/AdvReac Type Severity Reaction Status Date / Time lisinopril Allergy Rash/Hives Verified 06/13/19 17:03 mercury (elemental) Allergy Rash/Hives Verified 06/13/19 17:03 metoprolol Allergy Rash/Hives Verified 06/13/19 17:03 penicillin V Allergy Anaphylaxis Verified 06/13/19 17:03 pseudoephedrine Allergy Rapid Verified 06/13/19 17:03 [From [facility]] Heart Rate Physical Exam Vitals: Vital Signs Temp Pulse Pulse Resp BP BP Pulse Ox 06/14/19 03:05 98.1 F 83 22 148/65 97 06/14/19 03:03 85 06/14/19 02:53 82 06/13/19 23:20 97.7 F 81 26 H 136/63 93 L 06/13/19 23:01 116 H 06/13/19 22:50 112 H 06/13/19 21:45 97.5 F L 98 32 H 173/82 93 L 06/13/19 21:25 85 20 158/49 95 06/13/19 19:28 67 20 151/71 93 L 06/13/19 19:02 116 H 06/13/19 18:44 110 H 06/13/19 17:29 112 H 06/13/19 17:17 104 H 06/13/19 16:57 98.1 F 109 H 26 H 158/108 89 L Intake and Output 06/13/19 06/14/19 06/14/19 22:59 06:59 14:59 Output Total 650 Balance -650 Output: Urine 650 Other: Weight 74.389 kg 74.3 kg HEENT: Head is atraumatic, normocephalic, pupils were equal round reactive to light and accommodation, extraocular muscle movement were intact, mucous membranes of the mouth are somewhat dry. Neck: Supple, no JVP, decreased carotid upstroke bilaterally. Chest: Decreased breath sounds at the bases, moderate rhonchi, moderate expiratory wheezes, moderate intercostal retractions, no chest wall tenderness. Heart: First heart sound is depressed, second heart sound is normal, there is systolic ejection murmur 2/6 located at the left sternal border. Abdomen: Soft, nontender, nondistended, positive bowel sounds, no hepatosplenomegaly. Extremities: +1 edema no calf tenderness, or cyanosis pedis +1 bilaterally. Neurologic examination: Patient is awake alert and oriented 3, cranial nerves II-12 appear to be grossly intact, muscle power 4 out of 5 in upper and lower extremities bilaterally, deep tendon reflexes were depressed, Babinski's were flexor bilaterally. Results CBC & Chem 7: 06/15/19 09:06 06/15/19 09:06 Labs: Abnormal Lab Results - Last 24 Hours (Table) 06/13/19 06/14/19 06/14/19 Range/Units 17:38 05:57 06:08 Sodium 134 L (137-145) mmol/L Potassium 5.4 H (3.5-5.1) mmol/L Chloride 97 L (98-107) mmol/L Creatinine 0.51 L 0.46 L (0.52-1.04) mg/dL Glucose 122 H 140 H (74-99) mg/dL POC Glucose (mg/dL) 140 H (75-99) mg/dL Total Protein 5.8 L (6.3-8.2) g/dL Thrombosis Risk Factor Assmnt - DVT/VTE Prophylaxis DVT/VTE Prophylaxis: Pharmacologic Prophylaxis ordered, Mechanical Prophylaxis ordered - Choose All That Apply Any of the Below Risk Factors Present?: Yes Each Factor Represents 1 point: Abnormal pulmonary function (COPD), Obesity (BMI >25), Serious lung disease incl. pneumonia (< 1month) Each Risk Factor Represents 2 Points: Age 61-74 years Other congenital or acquired thrombophilia - If yes, enter type in comment: No Thrombosis Risk Factor Assessment Total Risk Factor Score: 5 Thrombosis Risk Factor Assessment Level: High Risk Assessment and Plan Assessment: Assessment and plan: 1. Acute respiratory failure due to acute exacerbation of COPD with acute bronchitis. Continue DuoNeb 3 mL nebulization 4 times every day, Pulmicort 1 mg nebulization twice every day, continue Levaquin 500 mg IV piggyback every 24 hours, continue Solu-Medrol 60 mg IV push every 6 hours, pulmonary consult. 2. Moderate COPD. Continue patient on treatment as in paragraph #1. 3. Hypertension and hypertensive cardiovascular disease. Continue patient on Atacand 8 mg orally once every day. 4. Chronic tobacco use and dependence. Smoking cessation and counseling an increased risk of CAD, CVA and malignancy. 5. DVT prophylaxis. Lovenox 40 mg subcutaneously every 24 hours. 6. GI prophylaxis. Continue patient on Pepcid 20 mg orally once every day. 7. Admit to inpatient. Estimate a length of stay 2 midnights for 8. Patient is full code.
[2019-06-14 11:57] LABS: Glucose,Whole Blood 126 mg/dL (75-99)
[2019-06-14 16:41] LABS: Glucose,Whole Blood 138 mg/dL (75-99)
[2019-06-14] MEDS ORDERED: AZITHROMYCIN 500 MG in SODIUM CHLORIDE 0.9% 250 ML IVPB SCH (18:00)
[2019-06-14 20:11] LABS: Glucose,Whole Blood 128 mg/dL (75-99)
[2019-06-14] MEDS: MONTELUKAST 10 MG TAB PO SCH (20:37)
[2019-06-15] MEDS: IPRATROPIUM-ALBUTEROL 3 ML NEB INHALATION PRN (01:22)
[2019-06-15] MEDS: SODIUM CHLORIDE 0.9% 1,000 ML IV SCH ×2 (04:41→05:57)
[2019-06-15 05:56] LABS: Glucose,Whole Blood 120 mg/dL (75-99)
[2019-06-15] MEDS: methylPREDNISolone SOD SUCCI 125 MG/2 ML VIAL IV SCH ×4 (05:56→23:09)
[2019-06-15] MEDS: BUDESONIDE 0.5 MG/2 ML NEBU INHALATION SCH ×2 (07:20→20:05)
[2019-06-15] MEDS: IPRATROPIUM-ALBUTEROL 3 ML NEB INHALATION SCH ×4 (07:20→20:05)
[2019-06-15] MEDS: INSULIN ASPART (NovoLOG) 100 UNIT/ML VIAL SQ SCH ×4 (09:51→21:05)
[2019-06-15] MEDS: guaiFENesin 600 MG TABLET.ER PO SCH ×2 (09:54→20:00)
[2019-06-15] MEDS: NICOTINE 21MG/24HR PATCH TRANSDERM SCH (09:55)
[2019-06-15] MEDS: CANDESARTAN 16 MG PO SCH (09:55)
[2019-06-15] MEDS: PANTOPRAZOLE 40 MG/10 ML VIAL IVP SCH (09:55)
[2019-06-15] MEDS: HEPARIN SODIUM,PORCINE 5,000 UNIT/ML 1 ML VIAL SQ SCH ×2 (09:55→20:00)
[2019-06-15] MEDS: TRIAMTERENE-HCTZ 37.5-25MG 1 EACH TAB PO SCH (09:55)
[2019-06-15 10:00] LABS: Basophils % (A) 0 %; Eosinophils % (A) 0 %; HCT 46.7 % (34.0-46.0); HGB 14.4 gm/dL (11.4-16.0); Lymphocytes # (A) 0.5 k/uL (1.0-4.8); Lymphocytes % (A) 6 %; MCH 30.2 pg (25.0-35.0); MCHC 30.9 g/dL (31.0-37.0); MCV 97.7 fL (80.0-100.0); Mean Platelet Volume 6.3; Monocytes # (A) 0.2 k/uL (0-1.0); Monocytes % (A) 3 %; Neutrophils # (A) 8.7 k/uL (1.3-7.7); Neutrophils % (A) 91 %; Platelet Count 378 k/uL (150-450); RBC 4.78 m/uL (3.80-5.40); RDW 14.6 % (11.5-15.5); WBC 9.6 k/uL (3.8-10.6)
[2019-06-15 10:19] LABS: African American GFR (CKD) >90 (>60 ml/min/1.73 sqM); Anion Gap 11 mmol/L; Blood Urea Nitrogen 17 mg/dL (7-17); Calcium 9.4 mg/dL (8.4-10.2); Carbon Dioxide 25 mmol/L (22-30); Chloride 102 mmol/L (98-107); Glucose 216 mg/dL (74-99); Potassium 4.1 mmol/L (3.5-5.1); Sodium 138 mmol/L (137-145)
[2019-06-15 12:37] LABS: Glucose,Whole Blood 115 mg/dL (75-99)
[2019-06-15] MEDS ORDERED: FUROSEMIDE 10 MG/ML 2 ML VIAL IV ONE (12:40)
--- NOTE | 2019-06-15 15:50 | P.PN ---
Subjective Progress Note Date: 06/15/19 This is a 69-year-old female patient of Dr. Smallwood with a past medical history of COPD, hypertension, tobacco use and dependence at one pack per day for 30-40 years, came to the ER at [facility] with increased shrtness of breath and increased coughing that started few days ago associated with the minimal phlegm production she denies any chest pain at that however she was extreme short of breath with little ambulation so she was seen in the ER had a chest x-ray showed COPD without evidence of acute infiltrate, she was started on IV Solu-Medrol 60 mg IV push every 6 hours, along with Pulmicort 1 mg nebulization twice every day and DuoNeb 3 mL nebulization 4 times every day, pulmonary consultation. 06/15: Patient states that she is feeling bad today. She has a cough with severe spasms. She states she has no strength today. She has had several bowel movements but no diarrhea. Patient found to have lower extremity edema for which IV fluids will be discontinued and changed to saline lock him 1 dose of IV Lasix. And basic metabolic panel unremarkable. Blood sugars running between 1:15 and 216. She has been afebrile, heart rate 94, respiratory rate 28, blood pressure 156/72, pulse ox 92% on 3 L nasal cannula. Patient will be transferred to [facility] for today once bed is available. Dr. Garber is on consult for Dr. ELVIA Rodriguez. Objective - Vital Signs Vital signs: Vital Signs Temp 98.5 F 06/15/19 03:25 Pulse 90 06/15/19 11:20 Resp 26 H 06/15/19 11:55 BP 151/77 06/15/19 08:00 Pulse Ox 90 L 06/15/19 08:00 Intake & Output 06/14/19 06/15/19 06/15/19 18:59 06:59 18:59 Intake Total 360 120 Output Total 1500 Balance -1140 120 Intake: Oral 360 120 Output: Urine 1500 Other: # Bowel Movements 2 - Exam Review of Systems Constitutional: Denies anorexia, Denies chronic headaches, Denies lethargy, reports weakness, Denies weight gain Eyes: denies blurred vision, denies bulging eye, denies decreased vision Ears: deny: decreased hearing Ears, nose, mouth and throat: Denies dysphagia, Denies neck lump, Denies swelling in throat, Denies sore throat Cardiovascular: Reports decreased exercise tolerance, Reports dyspnea on exertion, Reports shortness of breath, Denies chest pain, Denies edema, Denies lightheadedness, Denies rapid heart beat, Denies syncope Respiratory: Reports cough, Reports cough with sputum, Reports dyspnea, Reports respiratory infections, Reports wheezing, Denies congestion, Denies home oxygen, Denies sleep apnea, Denies snoring Gastrointestinal: Denies abdominal pain, Denies bloating, Denies BRBPR, Denies loss of appetite, Denies melena, Denies nausea, Denies vomiting Genitourinary: Denies dysuria, Denies hematuria Musculoskeletal: Denies myalgias Musculoskeletal: absent: ankle pain, ankle stiffness, ankle swelling, elbow pain, elbow stiffness, elbow swelling, foot pain, foot stiffness, foot swelling, hand pain, hand stiffness, hand swelling, hip pain, hip stiffness, hip swelling, knee pain, knee stiffness, knee swelling, shoulder pain, shoulder stiffness, shoulder swelling, wrist pain, wrist stiffness, wrist swelling Integumentary: Denies pruritus, Denies rash Neurological: Denies numbness, Denies weakness Psychiatric: Denies anxiety, Denies depression Endocrine: Denies fatigue, Denies weight change Gen: This is a 69-year-old female. She appears to be in mild distress secondary to coughing and shortness of breath. HEENT: Head is atraumatic, normocephalic. Pupils equal, round. Sclerae is anicteric. NECK: Supple. No JVD. No lymphadenopathy. No thyromegaly. LUNGS: Expiratory wheeze and scattered rhonchi. Mild intercostal retractions. Clear coughing spasms, nonproductive. HEART: Regular rate and rhythm. No murmur. ABDOMEN: Soft. Bowel sounds are present. No masses. No tenderness. EXTREMITIES: 1+ bilateral pedal edema. No calf tenderness. NEUROLOGICAL: Patient is awake, alert and oriented x3. Cranial nerves 2 through 12 are grossly intact. - Labs CBC & Chem 7: 06/15/19 09:06 06/15/19 09:06 Labs: Abnormal Lab Results - Last 24 Hours (Table) 06/14/19 06/14/19 06/15/19 Range/Units 16:38 20:09 05:55 Hct (34.0-46.0) % MCHC (31.0-37.0) g/dL Neutrophils # (1.3-7.7) k/uL Lymphocytes # (1.0-4.8) k/uL Creatinine (0.52-1.04) mg/dL Glucose (74-99) mg/dL POC Glucose (mg/dL) 138 H 128 H 120 H (75-99) mg/dL 06/15/19 06/15/19 06/15/19 Range/Units 09:06 09:06 12:17 Hct 46.7 H (34.0-46.0) % MCHC 30.9 L (31.0-37.0) g/dL Neutrophils # 8.7 H (1.3-7.7) k/uL Lymphocytes # 0.5 L (1.0-4.8) k/uL Creatinine 0.51 L (0.52-1.04) mg/dL Glucose 216 H (74-99) mg/dL POC Glucose (mg/dL) 115 H (75-99) mg/dL Microbiology - Last 24 Hours (Table) 06/13/19 18:12 Blood Culture - Preliminary Blood No Growth after 24 hours Assessment and Plan Plan: 1. Acute hypoxic respiratory failure due to acute exacerbation of COPD with acute bronchitis. Continue DuoNeb 3 mL nebulization 4 times every day, Pulmicort 1 mg nebulization twice every day, continue ceftriaxone and azithromycin every 24 hours, continue Solu-Medrol 60 mg IV push every 6 hours, pulmonary consult. Transferred to [facility] floor. 2. Moderate COPD. Continue patient on treatment as in paragraph #1. 3. Hypertension and hypertensive cardiovascular disease. Continue patient on Atacand 8 mg orally once every day. 4. Chronic tobacco use and dependence. Smoking cessation and counseling an increased risk of CAD, CVA and malignancy. 5. DVT prophylaxis. Lovenox 40 mg subcutaneously every 24 hours. 6. GI prophylaxis. Continue patient on Pepcid 20 mg orally once every day. 7. Patient is full code. Discharge plan: Most likely return home Impression and plan of care have been directed as dictated by the signing physician. Radha Woodruff nurse practitioner acting as scribe for signing physician.
[2019-06-15 16:48] LABS: Glucose,Whole Blood 138 mg/dL (75-99)
[2019-06-15] MEDS: AZITHROMYCIN 500 MG TAB PO SCH (17:22)
[2019-06-15] MEDS: MONTELUKAST 10 MG TAB PO SCH ×2 (19:59→20:00)
[2019-06-15 21:00] LABS: Glucose,Whole Blood 151 mg/dL (75-99)
[2019-06-16] MEDS: IPRATROPIUM-ALBUTEROL 3 ML NEB INHALATION PRN ×2 (00:05→13:27)
[2019-06-16] MEDS: methylPREDNISolone SOD SUCCI 125 MG/2 ML VIAL IV SCH ×4 (05:24→23:19)
[2019-06-16] MEDS: BUDESONIDE 0.5 MG/2 ML NEBU INHALATION SCH ×2 (05:52→21:11)
[2019-06-16] MEDS: IPRATROPIUM-ALBUTEROL 3 ML NEB INHALATION SCH ×4 (05:52→21:11)
[2019-06-16 07:08] LABS: Glucose,Whole Blood 120 mg/dL (75-99)
[2019-06-16] MEDS: INSULIN ASPART (NovoLOG) 100 UNIT/ML VIAL SQ SCH ×4 (07:26→20:38)
[2019-06-16] MEDS: HEPARIN SODIUM,PORCINE 5,000 UNIT/ML 1 ML VIAL SQ SCH ×2 (07:54→20:38)
[2019-06-16] MEDS: PANTOPRAZOLE 40 MG TABLET PO SCH (07:54)
[2019-06-16] MEDS: guaiFENesin 600 MG TABLET.ER PO SCH ×2 (07:54→20:38)
[2019-06-16] MEDS: NICOTINE 21MG/24HR PATCH TRANSDERM SCH (07:54)
[2019-06-16] MEDS: TRIAMTERENE-HCTZ 37.5-25MG 1 EACH TAB PO SCH (07:55)
[2019-06-16] MEDS: CANDESARTAN 16 MG PO SCH (07:55)
[2019-06-16 11:52] LABS: Glucose,Whole Blood 117 mg/dL (75-99)
--- NOTE | 2019-06-16 14:11 | P.PN ---
Subjective Progress Note Date: 06/16/19 This is a 69-year-old female patient of Dr. Smallwood with a past medical history of COPD, hypertension, tobacco use and dependence at one pack per day for 30-40 years, came to the ER at [facility] with increased shrtness of breath and increased coughing that started few days ago associated with the minimal phlegm production she denies any chest pain at that however she was extreme short of breath with little ambulation so she was seen in the ER had a chest x-ray showed COPD without evidence of acute infiltrate, she was started on IV Solu-Medrol 60 mg IV push every 6 hours, along with Pulmicort 1 mg nebulization twice every day and DuoNeb 3 mL nebulization 4 times every day, pulmonary consultation. 06/15: Patient states that she is feeling bad today. She has a cough with severe spasms. She states she has no strength today. She has had several bowel movements but no diarrhea. Patient found to have lower extremity edema for which IV fluids will be discontinued and changed to saline lock him 1 dose of IV Lasix. And basic metabolic panel unremarkable. Blood sugars running between 1:15 and 216. She has been afebrile, heart rate 94, respiratory rate 28, blood pressure 156/72, pulse ox 92% on 3 L nasal cannula. Patient will be transferred to [facility] for today once bed is available. Dr. Garber is on consult for Dr. ELVIA Rodriguez. 06/16: Vision is now seen on the [facility] floor. She states she was quite miserable this morning and had bad wheezing this morning as well. At this time she has decreased shortness of breath. We will plan to continue Solu-Medrol 60 every 6 hours. She states she urinated well after Lasix yesterday and will add in Lasix 20 mg oral daily secondary to fluid overload from IV fluid. She remains afebrile, heart rate 88, blood pressure 159/91, pulse ox 91% on 3 L nasal cannula. Blood sugars are running between 121 -151. Blood cultures no growth in 48 hours. Patient may require home oxygen. We will assess closer to the time of discharge. Discharge plan is to return home. Objective - Vital Signs Vital signs: Vital Signs Temp 97.2 F L 06/16/19 05:30 Pulse 84 06/16/19 11:09 Resp 28 H 06/16/19 05:30 BP 159/91 06/16/19 05:30 Pulse Ox 91 L 06/16/19 05:30 Intake & Output 06/15/19 06/16/19 06/16/19 18:59 06:59 18:59 Intake Total 360 200 Output Total 900 Balance -540 200 Intake: Oral 360 200 Output: Urine 900 Other: # Voids 0 4 # Bowel Movements 1 - Exam Review of Systems Constitutional: Denies anorexia, Denies chronic headaches, Denies lethargy, reports weakness, Denies weight gain Eyes: denies blurred vision, denies bulging eye, denies decreased vision Ears, nose, mouth and throat: Denies dysphagia, Denies neck lump, Denies swelling in throat, Denies sore throat Cardiovascular: Reports decreased exercise tolerance, Reports dyspnea on exertion, Reports shortness of breath, Denies chest pain, Denies edema, Denies lightheadedness, Denies rapid heart beat, Denies syncope Respiratory: Reports cough, Reports cough with sputum, Reports dyspnea, Reports respiratory infections, Reports wheezing, Denies congestion, Denies home oxygen, Denies sleep apnea, Denies snoring Gastrointestinal: Denies abdominal pain, Denies bloating, Denies BRBPR, Denies loss of appetite, Denies melena, Denies nausea, Denies vomiting Genitourinary: Denies dysuria, Denies hematuria Musculoskeletal: Denies myalgias Musculoskeletal: absent: ankle pain, ankle stiffness, ankle swelling, elbow pain, elbow stiffness, elbow swelling, foot pain, foot stiffness, foot swelling, hand pain, hand stiffness, hand swelling, hip pain, hip stiffness, hip swelling, knee pain, knee stiffness, knee swelling, shoulder pain, shoulder stiffness, sh oulder swelling, wrist pain, wrist stiffness, wrist swelling Integumentary: Denies pruritus, Denies rash Neurological: Denies numbness, Denies weakness Psychiatric: Denies anxiety, Denies depression Endocrine: Denies fatigue, Denies weight change Gen: This is a 69-year-old female. She appears to be in mild distress secondary to coughing and shortness of breath. HEENT: Head is atraumatic, normocephalic. Pupils equal, round. Sclerae is anicteric. NECK: Supple. No JVD. No lymphadenopathy. No thyromegaly. LUNGS: Expiratory wheeze throughout and scattered rhonchi. Mild intercostal retractions. Clear coughing spasms, nonproductive. HEART: Regular rate and rhythm. No murmur. ABDOMEN: Soft. Bowel sounds are present. No masses. No tenderness. EXTREMITIES: 1+ bilateral pedal edema. No calf tenderness. NEUROLOGICAL: Patient is awake, alert and oriented x3. Cranial nerves 2 through 12 are grossly intact. - Labs CBC & Chem 7: 06/15/19 09:06 06/15/19 09:06 Labs: Abnormal Lab Results - Last 24 Hours (Table) 06/15/19 06/15/19 06/16/19 Range/Units 16:36 20:59 07:05 POC Glucose (mg/dL) 138 H 151 H 120 H (75-99) mg/dL 06/16/19 Range/Units 11:47 POC Glucose (mg/dL) 117 H (75-99) mg/dL Microbiology - Last 24 Hours (Table) 06/13/19 18:12 Blood Culture - Preliminary Blood No Growth after 48 hours Assessment and Plan Plan: 1. Acute hypoxic respiratory failure due to acute exacerbation of COPD with acute bronchitis. Continue DuoNeb 3 mL nebulization 4 times every day, Pulmicort 1 mg nebulization twice every day, continue ceftriaxone and azithromycin every 24 hours, continue Solu-Medrol 60 mg IV push every 6 hours--no change, pulmonary consult. Patient may require home oxygen which will be assessed closer to discharge. 2. Moderate COPD. Continue patient on treatment as in paragraph #1. 3. Hypertension and hypertensive cardiovascular disease. Continue patient on Atacand 8 mg orally once every day. 4. Chronic tobacco use and dependence. Smoking cessation and counseling an in creased risk of CAD, CVA and malignancy. 5. DVT prophylaxis. Lovenox 40 mg subcutaneously every 24 hours. 6. GI prophylaxis. Continue patient on Pepcid 20 mg orally once every day. 7. Patient is full code. Discharge plan: home Impression and plan of care have been directed as dictated by the signing physician. Radha Woodruff nurse practitioner acting as scribe for signing physician.
[2019-06-16] MEDS: FUROSEMIDE 20 MG TAB PO SCH (15:01)
[2019-06-16 17:11] LABS: Glucose,Whole Blood 125 mg/dL (75-99)
[2019-06-16] MEDS: CALCIUM CARB-VIT D 500MG-200UN 1 EACH TAB PO SCH (17:34)
[2019-06-16] MEDS: AZITHROMYCIN 500 MG TAB PO SCH (17:34)
[2019-06-16 20:12] LABS: Glucose,Whole Blood 134 mg/dL (75-99)
[2019-06-17] MEDS: IPRATROPIUM-ALBUTEROL 3 ML NEB INHALATION PRN (03:22)
[2019-06-17] MEDS: methylPREDNISolone SOD SUCCI 125 MG/2 ML VIAL IV SCH ×2 (05:40→12:54)
[2019-06-17 07:04] LABS: Glucose,Whole Blood 116 mg/dL (75-99)
[2019-06-17] MEDS: INSULIN ASPART (NovoLOG) 100 UNIT/ML VIAL SQ SCH ×4 (07:20→21:28)
[2019-06-17] MEDS: guaiFENesin 600 MG TABLET.ER PO SCH ×2 (07:21→21:27)
[2019-06-17] MEDS: NICOTINE 21MG/24HR PATCH TRANSDERM SCH (07:21)
[2019-06-17] MEDS: PANTOPRAZOLE 40 MG TABLET PO SCH (07:21)
[2019-06-17] MEDS: HEPARIN SODIUM,PORCINE 5,000 UNIT/ML 1 ML VIAL SQ SCH ×2 (07:21→21:28)
[2019-06-17] MEDS: CALCIUM CARB-VIT D 500MG-200UN 1 EACH TAB PO SCH ×3 (07:21→16:57)
[2019-06-17] MEDS: FUROSEMIDE 20 MG TAB PO SCH (07:21)
[2019-06-17] MEDS: CANDESARTAN 16 MG PO SCH (07:21)
[2019-06-17] MEDS: TRIAMTERENE-HCTZ 37.5-25MG 1 EACH TAB PO SCH (07:22)
[2019-06-17] MEDS: BUDESONIDE 0.5 MG/2 ML NEBU INHALATION SCH ×2 (07:34→20:08)
[2019-06-17] MEDS: IPRATROPIUM-ALBUTEROL 3 ML NEB INHALATION SCH ×4 (07:34→20:08)
[2019-06-17 12:05] LABS: Glucose,Whole Blood 113 mg/dL (75-99)
--- NOTE | 2019-06-17 12:11 | P.CNPUL ---
History of Present Illness Consult date: 06/15/19 Reason for consult: dyspnea, cough, COPD, hypoxemia Chief complaint: Shortness of breath History of present illness: This is a 69-year-old female off for Dr. Montes patient patient has a prior history of extensive end-stage lung disease second to severe COPD emphysema has a long-term smoker smokes about 1 pack per day for almost 40 years came into the hospital with 4-5 day history of cough congestion shortness of breath sputum is white thick tenacious nonproductive cough x-ray showed consistent with COPD no active infiltrate identified patient has been started on breathing treatments and IV steroids Review of Systems All systems: negative Past Medical History Past Medical History: COPD, Hypertension, Pneumonia History of Any Multi-Drug Resistant Organisms: None Reported Past Surgical History: Tonsillectomy Additional Past Surgical History / Comment(s): hernia repair. Past Anesthesia/Blood Transfusion Reactions: No Reported Reaction Past Psychological History: No Psychological Hx Reported Smoking Status: Current every day smoker Past Alcohol Use History: None Reported Additional Past Alcohol Use History / Comment(s): Patient is a smoker of one pack per day for 30-40 years. She denies any marijuana, street drug or alcohol use. She is retired waiter/waitress bar. She lives at home with significant other. She does not have a nebulizer, oxygen, CPAP. Past Drug Use History: None Reported - Past Family History Father Additional Family Medical History / Comment(s): Father at age 68 from kidney cancer. He also had lung cancer. Patient was exposed to toxic chemicals thought to cause kidney cancer. Mother Additional Family Medical History / Comment(s): Mother at age 54 from gangrene. She was not diabetic. Sister(s) Additional Family Medical History / Comment(s): The patient has one sister and she has had no contact with her for 20 years. Patient does not have any brothe rs. Patient has 4 children with no major medical problems. Medications and Allergies Home Medications Medication Instructions Recorded Confirmed Type Albuterol Inhaler [Ventolin Hfa 1 - 2 puff INHALATION RT-Q6H 04/12/19 06/13/19 History Inhaler] Budesonide/Formoterol Fumarate 2 puff INHALATION RT-BID 04/12/19 06/13/19 History [Symbicort 160-4.5 Mcg Inhaler] Candesartan [Atacand] 8 mg PO DAILY 04/12/19 06/13/19 History Triamterene-Hctz 37.5-25Mg 1 tab PO DAILY 04/12/19 06/13/19 History [Maxzide 37.5-25] Umeclidinium [place] [Incruse 1 puff INHALATION RT-DAILY@1200 04/12/19 06/13/19 History Ellipta] Montelukast [Singulair] 10 mg PO HS #30 tab 04/15/19 06/13/19 Rx Ipratropium-Albuterol Nebulize 3 ml INHALATION RT-QID 06/10/19 06/13/19 History [Duoneb 0.5 mg-3 mg/3 ml Soln] Levofloxacin [Levaquin] 750 mg PO DAILY 5 Days #5 tab 06/10/19 06/13/19 Rx predniSONE See Taper PO DAILY 06/10/19 06/13/19 History Allergies Allergy/AdvReac Type Severity Reaction Status Date / Time lisinopril Allergy Rash/Hives Verified 06/13/19 17:03 mercury (elemental) Allergy Rash/Hives Verified 06/13/19 17:03 metoprolol Allergy Rash/Hives Verified 06/13/19 17:03 penicillin V Allergy Anaphylaxis Verified 06/13/19 17:03 pseudoephedrine Allergy Rapid Verified 06/13/19 17:03 [From [facility]] Heart Rate Physical Exam Vitals: Vital Signs Temp Pulse Pulse Resp BP Pulse Ox 06/15/19 12:00 97.9 F 94 28 H 156/72 92 L 06/15/19 11:55 26 H 06/15/19 11:20 90 06/15/19 11:07 88 06/15/19 08:00 88 26 H 151/77 90 L 06/15/19 07:38 86 06/15/19 07:20 82 94 L 06/15/19 03:25 98.5 F 80 20 119/59 96 06/15/19 01:35 88 06/15/19 01:23 88 06/14/19 23:20 98.2 F 75 20 109/59 94 L 06/14/19 20:41 88 06/14/19 20:20 80 06/14/19 19:25 98.1 F 68 22 118/56 94 L 06/14/19 16:27 92 Intake and Output 06/15/19 06/15/19 06/15/19 06:59 14:59 22:59 Intake Total 360 Output Total 400 500 Balance -40 -500 Intake: Oral 360 Output: Urine 400 500 Other: # Voids 0 # Bowel Movements 1 - Constitutional General appearance: cooperative, disheveled, mild distress, morbidly obese - EENT Eyes: EOMI, PERRLA, poor dentition, normal appearance ENT: normal oropharynx Ears: bilateral: normal - Neck Neck: normal ROM Carotids: bilateral: upstroke normal Thyroid: bilateral: normal size - Respiratory Respiratory: bilateral: diminished, wheezing, prolonged expiration, negative: CTA, dullness, rales, rhonchi - Cardiovascular Rhythm: regular Heart sounds: normal: S1, S2 - Gastrointestinal General gastrointestinal: soft - Integumentary Integumentary: normal turgor - Neurologic Neurologic: CNII-XII intact - Musculoskeletal Musculoskeletal: gait normal, generalized weakness, strength equal bilaterally - Psychiatric Psychiatric: A&O x's 3, appropriate affect, intact judgment & insight Results - Laboratory Findings CBC and BMP: 06/15/19 09:06 06/15/19 09:06 Abnormal lab findings: Abnormal Labs 06/13/19 06/14/19 06/14/19 17:38 05:57 06:08 Hct MCHC Neutrophils # Lymphocytes # Sodium 134 L Potassium 5.4 H Chloride 97 L Creatinine 0.51 L 0.46 L Glucose 122 H 140 H POC Glucose (mg/dL) 140 H Total Protein 5.8 L 06/14/19 06/14/19 06/14/19 11:53 16:38 20:09 Hct MCHC Neutrophils # Lymphocytes # Sodium Potassium Chloride Creatinine Glucose POC Glucose (mg/dL) 126 H 138 H 128 H Total Protein 06/15/19 06/15/19 06/15/19 05:55 09:06 09:06 Hct 46.7 H MCHC 30.9 L Neutrophils # 8.7 H Lymphocytes # 0.5 L Sodium Potassium Chloride Creatinine 0.51 L Glucose 216 H POC Glucose (mg/dL) 120 H Total Protein 06/15/19 12:17 Hct MCHC Neutrophils # Lymphocytes # Sodium Potassium Chloride Creatinine Glucose POC Glucose (mg/dL) 115 H Total Protein - Diagnostic Findings Chest x-ray: report reviewed, image reviewed (Finding consistent with COPD) Assessment and Plan Assessment: Acute on chronic hypoxic respiratory failure due to acute COPD exacerbation Acute COPD exacerbation Baseline severe COPD Generalized anxiety disorder History of smoking and nicotine use Hypertension hypertensive cardiovascular disease Plan: Steroids IV Breathing treatments Continue home medications DVT prophylaxis and peptic ulcer disease prophylaxis Increase activity as tolerated Supplemental oxygen Further recommendations pending plan of care as per clinical response of the patient Time with Patient: Greater than 30
--- NOTE | 2019-06-17 12:14 | P.PN ---
Subjective Progress Note Date: 06/16/19 Principal diagnosis: Acute on chronic hypoxic respiratory failure due to acute COPD exacerbation Acute COPD exacerbation Baseline severe COPD Generalized anxiety disorder History of smoking and nicotine use Hypertension hypertensive cardiovascular disease 06/16/2019, patient seen eval examined during the rounds sitting upright on the bed breathing slightly heavier denies any chest pain does have breathing difficulties on exertion and activity patient remains on IV steroids breathing treatments and follow clinical course closely Objective - Vital Signs Vital signs: Vital Signs Temp 98.1 F 06/16/19 15:00 Pulse 73 06/16/19 16:32 Resp 16 06/16/19 15:00 BP 154/74 06/16/19 15:00 Pulse Ox 95 06/16/19 16:22 Intake & Output 06/15/19 06/16/19 06/16/19 18:59 06:59 18:59 Intake Total 360 200 Output Total 900 Balance -540 200 Intake: Oral 360 200 Output: Urine 900 Other: # Voids 0 4 3 # Bowel Movements 1 1 - Exam - Constitutional General appearance: cooperative, disheveled, mild distress, morbidly obese - EENT Eyes: EOMI, PERRLA, poor dentition, normal appearance ENT: normal oropharynx Ears: bilateral: normal - Neck Neck: normal ROM Carotids: bilateral: upstroke normal Thyroid: bilateral: normal size - Respiratory Respiratory: bilateral: diminished, wheezing, prolonged expiration, negative: CTA, dullness, rales, rhonchi - Cardiovascular Rhythm: regular Heart sounds: normal: S1, S2 - Gastrointestinal General gastrointestinal: soft - Integumentary Integumentary: normal turgor - Neurologic Neurologic: CNII-XII intact - Musculoskeletal Musculoskeletal: gait normal, generalized weakness, strength equal bilaterally - Psychiatric Psychiatric: A&O x's 3, appropriate affect, intact judgment & insight - Labs CBC & Chem 7: 06/15/19 09:06 06/15/19 09:06 Labs: Abnormal Lab Results - Last 24 Hours (Table) 06/15/19 06/16/19 06/16/19 Range/Units 20:59 07:05 11:47 POC Glucose (mg/dL) 151 H 120 H 117 H (75-99) mg/dL 06/16/19 Range/Units 17:09 POC Glucose (mg/dL) 125 H (75-99) mg/dL Microbiology - Last 24 Hours (Table) 06/13/19 18:12 Blood Culture - Preliminary Blood No Growth after 48 hours Assessment and Plan Assessment: Acute on chronic hypoxic respiratory failure due to acute COPD exacerbation Acute COPD exacerbation Baseline severe COPD Generalized anxiety disorder History of smoking and nicotine use Hypertension hypertensive cardiovascular disease Plan: Steroids IV Breathing treatments Continue home medications DVT prophylaxis and peptic ulcer disease prophylaxis Increase activity as tolerated Supplemental oxygen Further recommendations pending plan of care as per clinical response of the patient Time with Patient: Greater than 30
--- NOTE | 2019-06-17 12:15 | P.PN ---
Subjective Progress Note Date: 06/17/19 Principal diagnosis: Acute on chronic hypoxic respiratory failure due to acute COPD exacerbation Acute COPD exacerbation Baseline severe COPD Generalized anxiety disorder History of smoking and nicotine use Hypertension hypertensive cardiovascular disease 06/17/2019, patient seen eval reexamined during the rounds labs reviewed medications reviewed complaining of significant anxiety especially at nighttime we'll start Xanax as needed continue other interventions possibly in next 24-48 hours should be ready for discharge and oral tapering steroids 06/16/2019, patient seen eval examined during the rounds sitting upright on the bed breathing slightly heavier denies any chest pain does have breathing difficulties on exertion and activity patient remains on IV steroids breathing treatments and follow clinical course closely This is a 69-year-old female off for Dr. Montes patient patient has a prior history of extensive end-stage lung disease second to severe COPD emphysema has a long-term smoker smokes about 1 pack per day for almost 40 years came into the hospital with 4-5 day history of cough congestion shortness of breath sputum is white thick tenacious nonproductive cough x-ray showed consistent with COPD no active infiltrate identified patient has been started on breathing treatments and IV steroids Objective - Vital Signs Vital signs: Vital Signs Temp 98.1 F 06/17/19 05:00 Pulse 92 06/17/19 11:57 Resp 25 H 06/17/19 07:28 BP 133/71 06/17/19 05:00 Pulse Ox 91 L 06/17/19 07:35 Intake & Output 06/16/19 06/17/19 06/17/19 18:59 06:59 18:59 Intake Total 200 620 Balance 200 620 Intake: Oral 200 620 Other: # Voids 3 8 1 # Bowel Movements 1 1 - Exam - Constitutional General appearance: cooperative, disheveled, mild distress, morbidly obese - EENT Eyes: EOMI, PERRLA, poor dentition, normal appearance ENT: normal oropharynx Ears: bilateral: normal - Neck Neck: normal ROM Carotids: bilateral: upstroke normal Thyroid: bilateral: normal size - Respiratory Respiratory: bilateral: diminished, wheezing, prolonged expiration, negative: CTA, dullness, rales, rhonchi - Cardiovascular Rhythm: regular Heart sounds: normal: S1, S2 - Gastrointestinal General gastrointestinal: soft - Integumentary Integumentary: normal turgor - Neurologic Neurologic: CNII-XII intact - Musculoskeletal Musculoskeletal: gait normal, generalized weakness, strength equal bilaterally - Psychiatric Psychiatric: A&O x's 3, appropriate affect, intact judgment & insight - Labs CBC & Chem 7: 06/15/19 09:06 06/15/19 09:06 Labs: Abnormal Lab Results - Last 24 Hours (Table) 06/16/19 06/16/19 06/17/19 Range/Units 17:09 20:11 07:01 POC Glucose (mg/dL) 125 H 134 H 116 H (75-99) mg/dL 06/17/19 Range/Units 12:03 POC Glucose (mg/dL) 113 H (75-99) mg/dL Microbiology - Last 24 Hours (Table) 06/13/19 18:12 Blood Culture - Preliminary Blood No Growth after 72 hours Assessment and Plan Assessment: Acute on chronic hypoxic respiratory failure due to acute COPD exacerbation Acute COPD exacerbation Baseline severe COPD Generalized anxiety disorder History of smoking and nicotine use Hypertension hypertensive cardiovascular disease Plan: Start Xanax when necessary Steroids IV Breathing treatments Continue home medications DVT prophylaxis and peptic ulcer disease prophylaxis Increase activity as tolerated Supplemental oxygen Further recommendations pending plan of care as per clinical response of the patient Time with Patient: Greater than 30
[2019-06-17] MEDS: ALPRAZolam 0.25 MG TAB PO PRN ×2 (12:51→21:34)
[2019-06-17] MEDS: MULTIVITAMINS, THERA 1 EACH TAB PO SCH (12:54)
--- NOTE | 2019-06-17 15:08 | P.PN ---
Subjective Progress Note Date: 06/17/19 This is a 69-year-old female patient of Dr. Smallwood with a past medical history of COPD, hypertension, tobacco use and dependence at one pack per day for 30-40 years, came to the ER at [facility] with increased shrtness of breath and increased coughing that started few days ago associated with the minimal phlegm production she denies any chest pain at that however she was extreme short of breath with little ambulation so she was seen in the ER had a chest x-ray showed COPD without evidence of acute infiltrate, she was started on IV Solu-Medrol 60 mg IV push every 6 hours, along with Pulmicort 1 mg nebulization twice every day and DuoNeb 3 mL nebulization 4 times every day, pulmonary consultation. 06/15: Patient states that she is feeling bad today. She has a cough with severe spasms. She states she has no strength today. She has had several bowel movements but no diarrhea. Patient found to have lower extremity edema for which IV fluids will be discontinued and changed to saline lock him 1 dose of IV Lasix. And basic metabolic panel unremarkable. Blood sugars running between 1:15 and 216. She has been afebrile, heart rate 94, respiratory rate 28, blood pressure 156/72, pulse ox 92% on 3 L nasal cannula. Patient will be transferred to [facility] for today once bed is available. Dr. Garber is on consult for Dr. ELVIA Rodriguez. 06/16: Vision is now seen on the [facility] floor. She states she was quite miserable this morning and had bad wheezing this morning as well. At this time she has decreased shortness of breath. We will plan to continue Solu-Medrol 60 every 6 hours. She states she urinated well after Lasix yesterday and will add in Lasix 20 mg oral daily secondary to fluid overload from IV fluid. She remains afebrile, heart rate 88, blood pressure 159/91, pulse ox 91% on 3 L nasal cannula. Blood sugars are running between 121 -151. Blood cultures no growth in 48 hours. Patient may require home oxygen. We will assess closer to the time of discharge. Discharge plan is to return home. 06/17: Patient states that she had a really rough day yesterday due to difficulty breathing and was crying a lot. She has decreased lower extremity edema. Breathing status is much improved today. Dr. Garber did start her on Xanax yesterday. Will decrease IV Medrol to 40 every 8 hours. Patient has been afebrile, heart rate 85, blood pressure 129/80, pulse ox 97% on 3 L nasal cannula. Blood sugars are running 113-134. Anticipate possible discharge in the next 24-48 hours. Objective - Vital Signs Vital signs: Vital Signs Temp 98.1 F 06/17/19 05:00 Pulse 92 06/17/19 11:57 Resp 25 H 06/17/19 07:28 BP 133/71 06/17/19 05:00 Pulse Ox 91 L 06/17/19 07:35 Intake & Output 06/16/19 06/17/19 06/17/19 18:59 06:59 18:59 Intake Total 200 620 Balance 200 620 Intake: Oral 200 620 Other: # Voids 3 8 1 # Bowel Movements 1 1 - Exam Review of Systems Constitutional: Denies anorexia, Denies chronic headaches, Denies lethargy, reports weakness, Denies weight gain Eyes: denies blurred vision, denies bulging eye, denies decreased vision Ears, nose, mouth and throat: Denies dysphagia, Denies neck lump, Denies swellin g in throat, Denies sore throat Cardiovascular: Reports decreased exercise tolerance, Reports dyspnea on exertion, Reports shortness of breath, Denies chest pain, Denies edema, Denies lightheadedness, Denies rapid heart beat, Denies syncope Respiratory: Reports cough, Reports cough with sputum, Reports dyspnea, Reports respiratory infections, Reports wheezing, Denies congestion, Denies home oxygen, Denies sleep apnea, Denies snoring Gastrointestinal: Denies abdominal pain, Denies bloating, Denies BRBPR, Denies loss of appetite, Denies melena, Denies nausea, Denies vomiting Genitourinary: Denies dysuria, Denies hematuria Musculoskeletal: Denies myalgias Musculoskeletal: absent: ankle pain, ankle stiffness, ankle swelling, elbow pain, elbow stiffness, elbow swelling, foot pain, foot stiffness, foot swelling, hand pain, hand stiffness, hand swelling, hip pain, hip stiffness, hip swelling, knee pain, knee stiffness, knee swelling, shoulder pain, shoulder stiffness, shoulder swelling, wrist pain, wrist stiffness, wrist swelling Integumentary: Denies pruritus, Denies rash Neurological: Denies numbness, Denies weakness Psychiatric: Reports anxiety, reports depression Endocrine: Denies fatigue, Denies weight change Gen: This is a 69-year-old female. She appears to be in no distress. HEENT: Head is atraumatic, normocephalic. Pupils equal, round. Sclerae is anicteric. NECK: Supple. No JVD. No lymphadenopathy. No thyromegaly. LUNGS: Mild Expiratory wheeze throughout and a few scattered rhonchi. No intercostal retractions. Clear coughing spasms, nonproductive. HEART: Regular rate and rhythm. No murmur. ABDOMEN: Soft. Bowel sounds are present. No masses. No tenderness. EXTREMITIES: No bilateral pedal edema. No calf tenderness. NEUROLOGICAL: Patient is awake, alert and oriented x3. Cranial nerves 2 through 12 are grossly intact. - Labs CBC & Chem 7: 06/15/19 09:06 06/15/19 09:06 Labs: Abnormal Lab Results - Last 24 Hours (Table) 06/16/19 06/16/19 06/17/19 Range/Units 17:09 20:11 07:01 POC Glucose (mg/dL) 125 H 134 H 116 H (75-99) mg/dL 06/17/19 Range/Units 12:03 POC Glucose (mg/dL) 113 H (75-99) mg/dL Microbiology - Last 24 Hours (Table) 06/13/19 18:12 Blood Culture - Preliminary Blood No Growth after 72 hours Assessment and Plan Plan: 1. Acute hypoxic respiratory failure due to acute exacerbation of COPD with acute bronchitis. Continue DuoNeb 3 mL nebulization 4 times every day, Pulmicort 1 mg nebulization twice every day, continue ceftriaxone and azithromycin every 24 hours, continue Solu-Medrol decreased to 40 mg every 8 hours, pulmonary consult. Home oxygen assessment. 2. Moderate COPD. Continue patient on treatment as in paragraph #1. 3. Hypertension and hypertensive cardiovascular disease. Continue patient on Atacand 8 mg orally once every day. 4. Chronic tobacco use and dependence. Smoking cessation and counseling an increased risk of CAD, CVA and malignancy. 5. DVT prophylaxis. Lovenox 40 mg subcutaneously every 24 hours. 6. GI prophylaxis. Continue patient on Pepcid 20 mg orally once every day. 7. Patient is full code. Discharge plan: home in the next 24-48 hrs. Impression and plan of care have been directed as dictated by the signing physician. Radha Woodruff nurse practitioner acting as scribe for signing physician.
[2019-06-17 16:56] LABS: Glucose,Whole Blood 127 mg/dL (75-99)
[2019-06-17] MEDS: AZITHROMYCIN 500 MG TAB PO SCH (16:56)
[2019-06-17] MEDS: methylPREDNISolone SOD SUCCI 40 MG/ML 1 ML VIAL IV SCH ×2 (16:57→23:57)
[2019-06-17 21:06] LABS: Glucose,Whole Blood 171 mg/dL (75-99)
[2019-06-17] MEDS: MONTELUKAST 10 MG TAB PO SCH (21:27)
[2019-06-18] MEDS: IPRATROPIUM-ALBUTEROL 3 ML NEB INHALATION PRN (00:12)
[2019-06-18] MEDS: NICOTINE 21MG/24HR PATCH TRANSDERM SCH (07:00)
[2019-06-18] MEDS: PANTOPRAZOLE 40 MG TABLET PO SCH (07:01)
[2019-06-18] MEDS: HEPARIN SODIUM,PORCINE 5,000 UNIT/ML 1 ML VIAL SQ SCH ×2 (07:01→21:26)
[2019-06-18] MEDS: ALPRAZolam 0.25 MG TAB PO PRN ×3 (07:01→21:26)
[2019-06-18] MEDS: methylPREDNISolone SOD SUCCI 40 MG/ML 1 ML VIAL IV SCH ×3 (07:01→23:58)
[2019-06-18] MEDS: guaiFENesin 600 MG TABLET.ER PO SCH ×2 (07:01→21:26)
[2019-06-18] MEDS: FUROSEMIDE 20 MG TAB PO SCH (07:01)
[2019-06-18] MEDS: TRIAMTERENE-HCTZ 37.5-25MG 1 EACH TAB PO SCH (07:02)
[2019-06-18] MEDS: CANDESARTAN 16 MG PO SCH (07:02)
[2019-06-18 07:04] LABS: Glucose,Whole Blood 106 mg/dL (75-99)
[2019-06-18] MEDS: INSULIN ASPART (NovoLOG) 100 UNIT/ML VIAL SQ SCH ×4 (07:13→21:32)
[2019-06-18] MEDS: CALCIUM CARB-VIT D 500MG-200UN 1 EACH TAB PO SCH ×3 (07:14→17:23)
[2019-06-18] MEDS: IPRATROPIUM-ALBUTEROL 3 ML NEB INHALATION SCH ×4 (08:13→21:03)
[2019-06-18] MEDS: BUDESONIDE 0.5 MG/2 ML NEBU INHALATION SCH (08:13)
[2019-06-18 12:04] LABS: Glucose,Whole Blood 109 mg/dL (75-99)
[2019-06-18] MEDS: MULTIVITAMINS, THERA 1 EACH TAB PO SCH (12:06)
--- NOTE | 2019-06-18 15:20 | P.PN ---
Subjective Progress Note Date: 06/18/19 This is a 69-year-old female patient of Dr. Smallwood with a past medical history of COPD, hypertension, tobacco use and dependence at one pack per day for 30-40 years, came to the ER at [facility] with increased shrtness of breath and increased coughing that started few days ago associated with the minimal phlegm production she denies any chest pain at that however she was extreme short of breath with little ambulation so she was seen in the ER had a chest x-ray showed COPD without evidence of acute infiltrate, she was started on IV Solu-Medrol 60 mg IV push every 6 hours, along with Pulmicort 1 mg nebulization twice every day and DuoNeb 3 mL nebulization 4 times every day, pulmonary consultation. 06/15: Patient states that she is feeling bad today. She has a cough with severe spasms. She states she has no strength today. She has had several bowel movements but no diarrhea. Patient found to have lower extremity edema for which IV fluids will be discontinued and changed to saline lock him 1 dose of IV Lasix. And basic metabolic panel unremarkable. Blood sugars running between 1:15 and 216. She has been afebrile, heart rate 94, respiratory rate 28, blood pressure 156/72, pulse ox 92% on 3 L nasal cannula. Patient will be transferred to [facility] for today once bed is available. Dr. Garber is on consult for Dr. ELVIA Rodriguez. 06/16: Vision is now seen on the [facility] floor. She states she was quite miserable this morning and had bad wheezing this morning as well. At this time she has decreased shortness of breath. We will plan to continue Solu-Medrol 60 every 6 hours. She states she urinated well after Lasix yesterday and will add in Lasix 20 mg oral daily secondary to fluid overload from IV fluid. She remains afebrile, heart rate 88, blood pressure 159/91, pulse ox 91% on 3 L nasal cannula. Blood sugars are running between 121 -151. Blood cultures no growth in 48 hours. Patient may require home oxygen. We will assess closer to the time of discharge. Discharge plan is to return home. 06/17: Patient states that she had a really rough day yesterday due to difficulty breathing and was crying a lot. She has decreased lower extremity edema. Breathing status is much improved today. Dr. Garber did start her on Xanax yesterday. Will decrease IV Medrol to 40 every 8 hours. Patient has been afebrile, heart rate 85, blood pressure 129/80, pulse ox 97% on 3 L nasal cannula. Blood sugars are running 113-134. Anticipate possible discharge in the next 24-48 hours. 06/18: The patient continues to have significant shortness of breath although it may be starting to improve. She feels exhausted. She has continued wheezing. We have increased her DuoNeb treatments every 4 hours, increase Pulmicort to 1 mg twice daily, Perforomist twice daily added, Solu-Medrol will remain at 40 mg every 8 hours. She has been afebrile, heart rate 96, blood pressure 141/86, pulse ox 100% on 3 L nasal cannula. Blood sugars were between 106 and 171. Objective - Vital Signs Vital signs: Vital Signs Temp 97.7 F 06/18/19 13:31 Pulse 96 06/18/19 13:31 Resp 17 06/18/19 12:39 BP 141/86 06/18/19 13:31 Pulse Ox 100 06/18/19 13:31 Intake & Output 06/17/19 06/18/19 06/18/19 18:59 06:59 18:59 Intake Total 1350 850 240 Balance 1350 850 240 Intake: Oral 1350 850 240 Other: # Voids 4 2 3 # Bowel Movements 1 1 - Exam Review of Systems Constitutional: Denies anorexia, Denies chronic headaches, reports weakness, Denies weight gain Eyes: denies blurred vision, denies bulging eye, denies decreased vision Ears, nose, mouth and throat: Denies dysphagia, Denies neck lump, Denies swelling in throat, Denies sore throat Cardiovascular: Reports decreased exercise tolerance, Reports dyspnea on e xertion, Reports shortness of breath, Denies chest pain, Denies edema, Denies lightheadedness, Denies rapid heart beat, Denies syncope Respiratory: Reports cough, Reports cough with sputum, Reports dyspnea, Reports respiratory infections, Reports wheezing, Denies congestion, Denies home oxygen, Denies sleep apnea, Denies snoring Gastrointestinal: Denies abdominal pain, Denies bloating, Denies BRBPR, Denies loss of appetite, Denies melena, Denies nausea, Denies vomiting Genitourinary: Denies dysuria, Denies hematuria Musculoskeletal: Denies myalgias Musculoskeletal: absent: ankle pain, ankle stiffness, ankle swelling, elbow pain, elbow stiffness, elbow swelling, foot pain, foot stiffness, foot swelling, hand pain, hand stiffness, hand swelling, hip pain, hip stiffness, hip swelling, knee pain, knee stiffness, knee swelling, shoulder pain, shoulder stiffness, shoulder swelling, wrist pain, wrist stiffness, wrist swelling Integumentary: Denies pruritus, Denies rash Neurological: Denies numbness, Denies weakness Psychiatric: Reports anxiety, reports depression Endocrine: Denies fatigue, Denies weight change Gen: This is a 69-year-old female. She appears to be in mild distress. HEENT: Head is atraumatic, normocephalic. Pupils equal, round. Sclerae is anicteric. NECK: Supple. No JVD. No lymphadenopathy. No thyromegaly. LUNGS: Expiratory wheeze throughout and a few scattered rhonchi. Mild intercostal retractions. HEART: Regular rate and rhythm. No murmur. ABDOMEN: Soft. Bowel sounds are present. No masses. No tenderness. EXTREMITIES: No bilateral pedal edema. No calf tenderness. NEUROLOGICAL: Patient is awake, alert and oriented x3. Cranial nerves 2 through 12 are grossly intact. - Labs CBC & Chem 7: 06/15/19 09:06 06/15/19 09:06 Labs: Abnormal Lab Results - Last 24 Hours (Table) 06/17/19 06/17/19 06/18/19 Range/Units 16:54 21:02 07:02 POC Glucose (mg/dL) 127 H 171 H 106 H (75-99) mg/dL 06/18/19 Range/Units 12:02 POC Glucose (mg/dL) 109 H (75-99) mg/dL Microbiology - Last 24 Hours (Table) 06/13/19 18:12 Blood Culture - Preliminary Blood No Growth after 96 hours Assessment and Plan Plan: 1. Acute hypoxic respiratory failure due to acute exacerbation of COPD with acute bronchitis. Continue DuoNeb 3 mL nebulization increased frequency to every 4 hours, Pulmicort increased to 1 mg nebulization twice every day, Perforomist twice daily added continue ceftriaxone and azithromycin every 24 hours, continue Solu-Medrol continued at 40 mg every 8 hours, pulmonary consult. Home oxygen assessment. 2. Moderate COPD. Continue patient on treatment as in paragraph #1. 3. Hypertension and hypertensive cardiovascular disease. Continue patient on Atacand 8 mg orally once every day. 4. Chronic tobacco use and dependence. Smoking cessation and counseling an increased risk of CAD, CVA and malignancy. 5. DVT prophylaxis. Lovenox 40 mg subcutaneously every 24 hours. 6. GI prophylaxis. Continue patient on Pepcid 20 mg orally once every day. 7. Patient is full code. Discharge plan: home in the next 48 hrs. Impression and plan of care have been directed as dictated by the signing physician. Radha Woodruff nurse practitioner acting as scribe for signing physician.
[2019-06-18 17:16] LABS: Glucose,Whole Blood 140 mg/dL (75-99)
[2019-06-18] MEDS: AZITHROMYCIN 500 MG TAB PO SCH (17:23)
--- NOTE | 2019-06-18 17:40 | P.PN ---
Subjective Progress Note Date: 06/18/19 Principal diagnosis: Acute on chronic hypoxic respiratory failure due to acute COPD exacerbation Acute COPD exacerbation Baseline severe COPD Generalized anxiety disorder History of smoking and nicotine use Hypertension hypertensive cardiovascular disease 06/17/2019, patient seen evelyn examined during the rounds labs reviewed medications reviewed care plan discussed with the patient and staff at length and anxiety a prehension is much better and improve she has been taking when necessary Xanax does not appear to have him worsen the respiratory status, still have significant wheezing and ongoing dyspnea on exertion*per discussion with the primary service patient will be kept for the weekend has she is been on IV steroids and breathing treatments continue other 06/17/2019, patient seen evelyn reexamined during the rounds labs reviewed medications reviewed complaining of significant anxiety especially at nighttime we'll start Xanax as needed continue other interventions possibly in next 24-48 hours should be ready for discharge and oral tapering steroids 06/16/2019, patient seen evelyn examined during the rounds sitting upright on the bed breathing slightly heavier denies any chest pain does have breathing difficulties on exertion and activity patient remains on IV steroids breathing treatments and follow clinical course closely This is a 69-year-old female off for Dr. Montes patient patient has a prior history of extensive end-stage lung disease second to severe COPD emphysema has a long-term smoker smokes about 1 pack per day for almost 40 years came into the hospital with 4-5 day history of cough congestion shortness of breath sputum is white thick tenacious nonproductive cough x-ray showed consistent with COPD no active infiltrate identified patient has been started on breathing treatments and IV steroids Objective - Vital Signs Vital signs: Vital Signs Temp 97.7 F 06/18/19 13:31 Pulse 98 06/18/19 16:39 Resp 17 06/18/19 15:46 BP 141/86 06/18/19 13:31 Pulse Ox 100 06/18/19 13:31 Intake & Output 06/17/19 06/18/19 06/18/19 18:59 06:59 18:59 Intake Total 1350 850 240 Balance 1350 850 240 Intake: Oral 1350 850 240 Other: # Voids 4 2 3 # Bowel Movements 1 1 - Exam - Constitutional General appearance: cooperative, disheveled, mild distress, morbidly obese - EENT Eyes: EOMI, PERRLA, poor dentition, normal appearance ENT: normal oropharynx Ears: bilateral: normal - Neck Neck: normal ROM Carotids: bilateral: upstroke normal Thyroid: bilateral: normal size - Respiratory Respiratory: bilateral: diminished, wheezing, prolonged expiration, negative: CTA, dullness, rales, rhonchi - Cardiovascular Rhythm: regular Heart sounds: normal: S1, S2 - Gastrointestinal General gastrointestinal: soft - Integumentary Integumentary: normal turgor - Neurologic Neurologic: CNII-XII intact - Musculoskeletal Musculoskeletal: gait normal, generalized weakness, strength equal bilaterally - Psychiatric Psychiatric: A&O x's 3, appropriate affect, intact judgment & insight - Labs CBC & Chem 7: 06/15/19 09:06 06/15/19 09:06 Labs: Abnormal Lab Results - Last 24 Hours (Table) 06/17/19 06/18/19 06/18/19 Range/Units 21:02 07:02 12:02 POC Glucose (mg/dL) 171 H 106 H 109 H (75-99) mg/dL 06/18/19 Range/Units 17:14 POC Glucose (mg/dL) 140 H (75-99) mg/dL Microbiology - Last 24 Hours (Table) 06/13/19 18:12 Blood Culture - Preliminary Blood No Growth after 96 hours Assessment and Plan Assessment: Acute on chronic hypoxic respiratory failure due to acute COPD exacerbation Acute COPD exacerbation Baseline severe COPD Generalized anxiety disorder History of smoking and nicotine use Hypertension hypertensive cardiovascular disease Plan: Start Xanax when necessary Steroids IV Breathing treatments Continue home medications DVT prophylaxis and peptic ulcer disease prophylaxis Increase activity as tolerated Supplemental oxygen Further recommendations pending plan of care as per clinical response of the patient
[2019-06-18 20:28] LABS: Glucose,Whole Blood 169 mg/dL (75-99)
[2019-06-18] MEDS: BUDESONIDE 1 MG/2 ML NEBU INHALATION SCH (21:03)
[2019-06-18] MEDS: FORMOTEROL FUMARATE 20 MCG/2 ML NEBU INHALATION SCH (21:03)
[2019-06-18] MEDS: MONTELUKAST 10 MG TAB PO SCH (21:26)
[2019-06-19] MEDS: IPRATROPIUM-ALBUTEROL 3 ML NEB INHALATION SCH ×7 (00:52→22:45)
[2019-06-19 07:02] LABS: Glucose,Whole Blood 78 mg/dL (75-99)
[2019-06-19] MEDS: INSULIN ASPART (NovoLOG) 100 UNIT/ML VIAL SQ SCH ×4 (07:34→21:53)
[2019-06-19] MEDS: ALPRAZolam 0.25 MG TAB PO PRN ×3 (07:38→21:52)
[2019-06-19] MEDS: guaiFENesin 600 MG TABLET.ER PO SCH ×2 (07:38→21:53)
[2019-06-19] MEDS: TRIAMTERENE-HCTZ 37.5-25MG 1 EACH TAB PO SCH (07:38)
[2019-06-19] MEDS: MULTIVITAMINS, THERA 1 EACH TAB PO SCH (07:39)
[2019-06-19] MEDS: CALCIUM CARB-VIT D 500MG-200UN 1 EACH TAB PO SCH ×3 (07:39→16:53)
[2019-06-19] MEDS: methylPREDNISolone SOD SUCCI 40 MG/ML 1 ML VIAL IV SCH ×2 (07:39→15:00)
[2019-06-19] MEDS: CANDESARTAN 16 MG PO SCH (07:39)
[2019-06-19] MEDS: PANTOPRAZOLE 40 MG TABLET PO SCH (07:39)
[2019-06-19] MEDS: NICOTINE 21MG/24HR PATCH TRANSDERM SCH (07:39)
[2019-06-19] MEDS: HEPARIN SODIUM,PORCINE 5,000 UNIT/ML 1 ML VIAL SQ SCH ×2 (07:39→21:53)
[2019-06-19] MEDS: FUROSEMIDE 20 MG TAB PO SCH (07:39)
[2019-06-19] MEDS: FORMOTEROL FUMARATE 20 MCG/2 ML NEBU INHALATION SCH ×2 (07:50→19:08)
[2019-06-19] MEDS: BUDESONIDE 1 MG/2 ML NEBU INHALATION SCH ×2 (07:50→19:08)
[2019-06-19 08:36] LABS: HCT 47.4 % (34.0-46.0); HGB 15.5 gm/dL (11.4-16.0); MCH 30.6 pg (25.0-35.0); MCHC 32.8 g/dL (31.0-37.0); MCV 93.3 fL (80.0-100.0); Mean Platelet Volume 6.5; Platelet Count 300 k/uL (150-450); RBC 5.08 m/uL (3.80-5.40); RDW 14.2 % (11.5-15.5); WBC 8.3 k/uL (3.8-10.6)
[2019-06-19 09:08] LABS: African American GFR (CKD) >90 (>60 ml/min/1.73 sqM); Anion Gap 6 mmol/L; Blood Urea Nitrogen 29 mg/dL (7-17); Calcium 9.4 mg/dL (8.4-10.2); Carbon Dioxide 35 mmol/L (22-30); Chloride 94 mmol/L (98-107); Glucose 68 mg/dL (74-99); Sodium 135 mmol/L (137-145)
[2019-06-19 11:52] LABS: Glucose,Whole Blood 102 mg/dL (75-99)
--- NOTE | 2019-06-19 15:20 | P.PN ---
Subjective Progress Note Date: 06/19/19 This is a 69-year-old female patient of Dr. Smallwood with a past medical history of COPD, hypertension, tobacco use and dependence at one pack per day for 30-40 years, came to the ER at [facility] with increased shrtness of breath and increased coughing that started few days ago associated with the minimal phlegm production she denies any chest pain at that however she was extreme short of breath with little ambulation so she was seen in the ER had a chest x-ray showed COPD without evidence of acute infiltrate, she was started on IV Solu-Medrol 60 mg IV push every 6 hours, along with Pulmicort 1 mg nebulization twice every day and DuoNeb 3 mL nebulization 4 times every day, pulmonary consultation. 06/15: Patient states that she is feeling bad today. She has a cough with severe spasms. She states she has no strength today. She has had several bowel movements but no diarrhea. Patient found to have lower extremity edema for which IV fluids will be discontinued and changed to saline lock him 1 dose of IV Lasix. And basic metabolic panel unremarkable. Blood sugars running between 1:15 and 216. She has been afebrile, heart rate 94, respiratory rate 28, blood pressure 156/72, pulse ox 92% on 3 L nasal cannula. Patient will be transferred to [facility] for today once bed is available. Dr. Garber is on consult for Dr. ELVIA Rodriguez. 06/16: Vision is now seen on the [facility] floor. She states she was quite miserable this morning and had bad wheezing this morning as well. At this time she has decreased shortness of breath. We will plan to continue Solu-Medrol 60 every 6 hours. She states she urinated well after Lasix yesterday and will add in Lasix 20 mg oral daily secondary to fluid overload from IV fluid. She remains afebrile, heart rate 88, blood pressure 159/91, pulse ox 91% on 3 L nasal cannula. Blood sugars are running between 121 -151. Blood cultures no growth in 48 hours. Patient may require home oxygen. We will assess closer to the time of discharge. Discharge plan is to return home. 06/17: Patient states that she had a really rough day yesterday due to difficulty breathing and was crying a lot. She has decreased lower extremity edema. Breathing status is much improved today. Dr. Garber did start her on Xanax yesterday. Will decrease IV Medrol to 40 every 8 hours. Patient has been afebrile, heart rate 85, blood pressure 129/80, pulse ox 97% on 3 L nasal cannula. Blood sugars are running 113-134. Anticipate possible discharge in the next 24-48 hours. 06/18: The patient continues to have significant shortness of breath although it may be starting to improve. She feels exhausted. She has continued wheezing. We have increased her DuoNeb treatments every 4 hours, increase Pulmicort to 1 mg twice daily, Perforomist twice daily added, Solu-Medrol will remain at 40 mg every 8 hours. She has been afebrile, heart rate 96, blood pressure 141/86, pulse ox 100% on 3 L nasal cannula. Blood sugars were between 106 and 171. 06/19: Patient's breathing is little improved from yesterday after medication changes were made. She continues to have wheezing and a cough though and we will maintain sinus 40 mg IV every 8 hours. Patient is followed by Dr. Garber. Patient has been afebrile, heart rate 87, blood pressure 127/68, pulse ox 96% on 3 L nasal cannula. WBC 8.3, hemoglobin 15.5. Sodium 135, potassium 4.0, chloride 94, CO2 35, BUN 6 and creatinine 29. Blood sugars are running between 68 and 102. Anticipate discharge in the next 48-72 hours. Patient is improving slowly and gradually. Objective - Vital Signs Vital signs: Vital Signs Temp 98.2 F 06/19/19 10:08 Pulse 97 06/19/19 10:08 Resp 16 06/19/19 10:23 BP 121/81 06/19/19 10:08 Pulse Ox 95 06/19/19 10:23 Intake & Output 06/18/19 06/19/19 06/19/19 18:59 06:59 18:59 Intake Total 240 200 240 Balance 240 200 240 Weight 74.3 kg Intake: Oral 240 200 240 Other: # Voids 3 2 - Exam Review of Systems Constitutional: Denies anorexia, Denies chronic headaches, reports weakness, Denies weight gain Eyes: denies blurred vision, Ears, nose, mouth and throat: Denies dysphagia, Denies neck lump, Denies swelling in throat, Denies sore throat Cardiovascular: Reports decreased exercise tolerance, Reports dyspnea on exertion, Reports shortness of breath, Denies chest pain, Denies edema, Denies lightheadedness, Denies rapid heart beat, Denies syncope Respiratory: Reports cough, Reports cough with sputum, Reports dyspnea, Reports respiratory infections, Reports wheezing, Denies congestion, Denies home oxygen, Denies sleep apnea, Denies snoring Gastrointestinal: Denies abdominal pain, Denies bloating, Denies BRBPR, Denies loss of appetite, Denies melena, Denies nausea, Denies vomiting Genitourinary: Denies dysuria, Denies hematuria Musculoskeletal: Denies myalgias Musculoskeletal: absent: ankle pain, ankle stiffness, ankle swelling, elbow pain, elbow stiffness, elbow swelling, foot pain, foot stiffness, foot swelling, hand pain, hand stiffness, hand swelling, hip pain, hip stiffness, hip swelling, knee pain, knee stiffness, knee swelling, shoulder pain, shoulder stiffness, shoulder swelling, wrist pain, wrist stiffness, wrist swelling Integumentary: Denies pruritus, Denies rash Neurological: Denies numbness, Denies weakness Psychiatric: Reports anxiety, reports depression Endocrine: Denies fatigue, Denies weight change Gen: This is a 69-year-old female. She appears to be in mild distress but improved from yesterday. HEENT: Head is atraumatic, normocephalic. Pupils equal, round. Sclerae is anicteric. NECK: Supple. No JVD. No lymphadenopathy. No thyromegaly. LUNGS: Expiratory wheeze throughout and a few scattered rhonchi. Mild intercostal retractions. HEART: Regular rate and rhythm. No murmur. ABDOMEN: Soft. Bowel sounds are present. No masses. No tenderness. EXTREMITIES: No bilateral pedal edema. No calf tenderness. NEUROLOGICAL: Patient is awake, alert and oriented x3. Cranial nerves 2 through 12 are grossly intact. - Labs CBC & Chem 7: 06/19/19 07:32 06/19/19 07:32 Labs: Abnormal Lab Results - Last 24 Hours (Table) 06/18/19 06/18/19 06/18/19 Range/Units 12:02 17:14 20:22 Hct (34.0-46.0) % Sodium (137-145) mmol/L Chloride (98-107) mmol/L Carbon Dioxide (22-30) mmol/L BUN (7-17) mg/dL Glucose (74-99) mg/dL POC Glucose (mg/dL) 109 H 140 H 169 H (75-99) mg/dL 06/19/19 06/19/19 Range/Units 07:32 07:32 Hct 47.4 H (34.0-46.0) % Sodium 135 L (137-145) mmol/L Chloride 94 L (98-107) mmol/L Carbon Dioxide 35 H (22-30) mmol/L BUN 29 H (7-17) mg/dL Glucose 68 L (74-99) mg/dL POC Glucose (mg/dL) (75-99) mg/dL Microbiology - Last 24 Hours (Table) 06/13/19 18:12 Blood Culture - Preliminary Blood No Growth after 120 hours Assessment and Plan Plan: 1. Acute hypoxic respiratory failure due to acute exacerbation of COPD with acute bronchitis. Continue DuoNeb 3 mL nebulization increased frequency to every 4 hours, Pulmicort increased to 1 mg nebulization twice every day, Perforomist twice daily added continue ceftriaxone and azithromycin every 24 hours, continue Solu-Medrol continued at 40 mg every 8 hours, pulmonary consult. Home oxygen assessment. 2. Moderate COPD. Continue patient on treatment as in paragraph #1. 3. Hypertension and hypertensive cardiovascular disease. Continue patient on Atacand 8 mg orally once every day. 4. Chronic tobacco use and dependence. Smoking cessation and counseling an increased risk of CAD, CVA and malignancy. 5. DVT prophylaxis. Lovenox 40 mg subcutaneously every 24 hours. 6. GI prophylaxis. Continue patient on Pepcid 20 mg orally once every day. 7. Patient is full code. Discharge plan: home in the next 48-72 hrs. Impression and plan of care have been directed as dictated by the signing phys jorge luis. Radha Woodruff nurse practitioner acting as scribe for signing physician.
[2019-06-19 16:25] LABS: Glucose,Whole Blood 148 mg/dL (75-99)
--- NOTE | 2019-06-19 16:40 | P.PN ---
Subjective Progress Note Date: 06/19/19 Principal diagnosis: Acute on chronic hypoxic respiratory failure due to acute COPD exacerbation Acute COPD exacerbation Baseline severe COPD Generalized anxiety disorder History of smoking and nicotine use Hypertension hypertensive cardiovascular disease 06/19/2019, patient seen evelyn examined during the rounds labs reviewed medications reviewed care plan discussed, patient remains on supplemental oxygen is still have intermittent wheezing is present but severity has improved anxiety symptoms have improved as well 06/18/2019, patient seen evyanelis examined during the rounds labs reviewed medications reviewed care plan discussed with the patient and staff at length and anxiety a prehension is much better and improve she has been taking when necessary Xanax does not appear to have him worsen the respiratory status, still have significant wheezing and ongoing dyspnea on exertion*per discussion with the primary service patient will be kept for the weekend has she is been on IV steroids and breathing treatments continue other 06/17/2019, patient seen evelyn reexamined during the rounds labs reviewed medications reviewed complaining of significant anxiety especially at nighttime we'll start Xanax as needed continue other interventions possibly in next 24-48 hours should be ready for discharge and oral tapering steroids 06/16/2019, patient seen evelyn examined during the rounds sitting upright on the bed breathing slightly heavier denies any chest pain does have breathing difficulties on exertion and activity patient remains on IV steroids breathing treatments and follow clinical course closely This is a 69-year-old female off for Dr. Montes patient patient has a prior history of extensive end-stage lung disease second to severe COPD emphysema has a long-term smoker smokes about 1 pack per day for almost 40 years came into the hospital with 4-5 day history of cough congestion shortness of breath sputum is white thick tenacious nonproductive cough x-ray showed consistent with COPD no active infiltrate identified patient has been started on breathing treatments and IV steroids Objective - Vital Signs Vital signs: Vital Signs Temp 98.2 F 06/19/19 14:53 Pulse 105 H 06/19/19 15:31 Resp 18 06/19/19 15:31 BP 127/68 06/19/19 14:53 Pulse Ox 97 06/19/19 15:20 Intake & Output 06/18/19 06/19/19 06/19/19 18:59 06:59 18:59 Intake Total 240 200 240 Balance 240 200 240 Weight 74.3 kg Intake: Oral 240 200 240 Other: # Voids 3 2 3 - Exam - Constitutional General appearance: cooperative, disheveled, mild distress, morbidly obese - EENT Eyes: EOMI, PERRLA, poor dentition, normal appearance ENT: normal oropharynx Ears: bilateral: normal - Neck Neck: normal ROM Carotids: bilateral: upstroke normal Thyroid: bilateral: normal size - Respiratory Respiratory: bilateral: diminished, wheezing, prolonged expiration, negative: CTA, dullness, rales, rhonchi - Cardiovascular Rhythm: regular Heart sounds: normal: S1, S2 - Gastrointestinal General gastrointestinal: soft - Integumentary Integumentary: normal turgor - Neurologic Neurologic: CNII-XII intact - Musculoskeletal Musculoskeletal: gait normal, generalized weakness, strength equal bilaterally - Psychiatric Psychiatric: A&O x's 3, appropriate affect, intact judgment & insight - Labs CBC & Chem 7: 06/19/19 07:32 06/19/19 07:32 Labs: Abnormal Lab Results - Last 24 Hours (Table) 06/18/19 06/18/19 06/19/19 Range/Units 17:14 20:22 07:32 Hct 47.4 H (34.0-46.0) % Sodium (137-145) mmol/L Chloride (98-107) mmol/L Carbon Dioxide (22-30) mmol/L BUN (7-17) mg/dL Glucose (74-99) mg/dL POC Glucose (mg/dL) 140 H 169 H (75-99) mg/dL 06/19/19 06/19/19 06/19/19 Range/Units 07:32 11:49 16:23 Hct (34.0-46.0) % Sodium 135 L (137-145) mmol/L Chloride 94 L (98-107) mmol/L Carbon Dioxide 35 H (22-30) mmol/L BUN 29 H (7-17) mg/dL Glucose 68 L (74-99) mg/dL POC Glucose (mg/dL) 102 H 148 H (75-99) mg/dL Microbiology - Last 24 Hours (Table) 06/13/19 18:12 Blood Culture - Preliminary Blood No Growth after 120 hours Assessment and Plan Assessment: Acute on chronic hypoxic respiratory failure due to acute COPD exacerbation Acute COPD exacerbation Baseline severe COPD Generalized anxiety disorder History of smoking and nicotine use Hypertension hypertensive cardiovascular disease Plan: Start Xanax when necessary Steroids IV Breathing treatments Continue home medications DVT prophylaxis and peptic ulcer disease prophylaxis Increase activity as tolerated Supplemental oxygen Further recommendations pending plan of care as per clinical response of the patient Time with Patient: Greater than 30
[2019-06-19] MEDS: AZITHROMYCIN 500 MG TAB PO SCH (16:53)
[2019-06-19 20:55] LABS: Glucose,Whole Blood 165 mg/dL (75-99)
[2019-06-19] MEDS: MONTELUKAST 10 MG TAB PO SCH (21:53)
[2019-06-20] MEDS: methylPREDNISolone SOD SUCCI 40 MG/ML 1 ML VIAL IV SCH ×4 (00:08→23:42)
[2019-06-20] MEDS: IPRATROPIUM-ALBUTEROL 3 ML NEB INHALATION SCH ×6 (03:03→23:12)
[2019-06-20 06:55] LABS: Glucose,Whole Blood 112 mg/dL (75-99)
[2019-06-20] MEDS: INSULIN ASPART (NovoLOG) 100 UNIT/ML VIAL SQ SCH ×4 (07:02→20:58)
[2019-06-20] MEDS: BUDESONIDE 1 MG/2 ML NEBU INHALATION SCH ×2 (08:20→19:08)
[2019-06-20] MEDS: FORMOTEROL FUMARATE 20 MCG/2 ML NEBU INHALATION SCH ×2 (08:20→19:07)
[2019-06-20] MEDS: NICOTINE 21MG/24HR PATCH TRANSDERM SCH (08:56)
[2019-06-20] MEDS: CALCIUM CARB-VIT D 500MG-200UN 1 EACH TAB PO SCH ×3 (08:57→16:28)
[2019-06-20] MEDS: MULTIVITAMINS, THERA 1 EACH TAB PO SCH (08:57)
[2019-06-20] MEDS: guaiFENesin 600 MG TABLET.ER PO SCH ×2 (08:57→20:58)
[2019-06-20] MEDS: HEPARIN SODIUM,PORCINE 5,000 UNIT/ML 1 ML VIAL SQ SCH ×2 (08:57→20:58)
[2019-06-20] MEDS: FUROSEMIDE 20 MG TAB PO SCH (08:57)
[2019-06-20] MEDS: TRIAMTERENE-HCTZ 37.5-25MG 1 EACH TAB PO SCH (08:57)
[2019-06-20] MEDS: ALPRAZolam 0.25 MG TAB PO PRN ×3 (08:57→23:42)
[2019-06-20] MEDS: PANTOPRAZOLE 40 MG TABLET PO SCH (08:57)
[2019-06-20] MEDS: CANDESARTAN 16 MG PO SCH (08:58)
--- NOTE | 2019-06-20 11:20 | P.PN ---
Subjective Progress Note Date: 06/20/19 Principal diagnosis: COPD exacerbation Patient is improved at least 25% since admission but still short of breath with activities have persistent cough and having difficulty ambulating in the room. No fever chills nausea vomiting or abdominal pain and patient is tolerating diet without difficulties Objective - Vital Signs Vital signs: Vital Signs Temp 98.0 F 06/20/19 05:07 Pulse 73 06/20/19 08:41 Resp 18 06/20/19 05:07 BP 133/68 06/20/19 05:07 Pulse Ox 93 L 06/20/19 05:07 Intake & Output 06/19/19 06/20/19 06/20/19 18:59 06:59 18:59 Intake Total 540 Balance 540 Weight 74.3 kg Intake: Oral 540 Other: # Voids 3 3 - Exam Gen.: in stated age, no acute distress Heart: Normal S1-S2 Lungs: Diffuse wheezing bilaterally Abdomen: Soft, no tenderness, positive bowel sounds in all 4 quadrant no g uarding or rebound Skin: No new rash Psych: Alert and oriented 3 Neuro: No focal deficit - Labs CBC & Chem 7: 06/19/19 07:32 06/19/19 07:32 Labs: Abnormal Lab Results - Last 24 Hours (Table) 06/19/19 06/19/19 06/19/19 Range/Units 11:49 16:23 20:54 POC Glucose (mg/dL) 102 H 148 H 165 H (75-99) mg/dL 06/20/19 Range/Units 06:51 POC Glucose (mg/dL) 112 H (75-99) mg/dL Microbiology - Last 24 Hours (Table) 06/13/19 18:12 Blood Culture - Final Blood No Growth after 144 hours Assessment and Plan Assessment: 1. Acute COPD with exacerbation. 2. Tracheobronchitis. 3. Anxiety. 4. Hyponatremia. Land discussed with patient and nursing staff where I would like to continue Solu-Medrol 3 times daily consider tapering dose down based on clinical progress continue with aggressive pulmonary hygiene maintain oxygenation between 88-92% and continue monitoring sodium closely encourage oral intake and repeat blood work in the morning
[2019-06-20 11:46] LABS: Glucose,Whole Blood 105 mg/dL (75-99)
[2019-06-20 16:47] LABS: Glucose,Whole Blood 113 mg/dL (75-99)
[2019-06-20] MEDS: AZITHROMYCIN 500 MG TAB PO SCH (17:01)
[2019-06-20 20:43] LABS: Glucose,Whole Blood 158 mg/dL (75-99)
[2019-06-20] MEDS: MONTELUKAST 10 MG TAB PO SCH (20:58)
[2019-06-21] MEDS: IPRATROPIUM-ALBUTEROL 3 ML NEB INHALATION SCH ×6 (03:52→23:08)
[2019-06-21 07:13] LABS: Glucose,Whole Blood 118 mg/dL (75-99)
[2019-06-21] MEDS: INSULIN ASPART (NovoLOG) 100 UNIT/ML VIAL SQ SCH ×4 (07:23→21:55)
[2019-06-21] MEDS: BUDESONIDE 1 MG/2 ML NEBU INHALATION SCH ×2 (07:37→19:35)
[2019-06-21] MEDS: FORMOTEROL FUMARATE 20 MCG/2 ML NEBU INHALATION SCH ×2 (07:37→19:35)
[2019-06-21] MEDS: PANTOPRAZOLE 40 MG TABLET PO SCH (07:43)
[2019-06-21] MEDS: NICOTINE 21MG/24HR PATCH TRANSDERM SCH (07:43)
[2019-06-21] MEDS: methylPREDNISolone SOD SUCCI 40 MG/ML 1 ML VIAL IV SCH ×3 (07:43→23:15)
[2019-06-21] MEDS: HEPARIN SODIUM,PORCINE 5,000 UNIT/ML 1 ML VIAL SQ SCH ×2 (07:43→21:53)
[2019-06-21] MEDS: CANDESARTAN 16 MG PO SCH (07:44)
[2019-06-21] MEDS: CALCIUM CARB-VIT D 500MG-200UN 1 EACH TAB PO SCH ×3 (07:44→17:35)
[2019-06-21] MEDS: FUROSEMIDE 20 MG TAB PO SCH (07:44)
[2019-06-21] MEDS: guaiFENesin 600 MG TABLET.ER PO SCH ×2 (07:44→21:53)
[2019-06-21] MEDS: TRIAMTERENE-HCTZ 37.5-25MG 1 EACH TAB PO SCH (07:44)
[2019-06-21] MEDS: ALPRAZolam 0.25 MG TAB PO PRN ×3 (07:47→21:53)
--- NOTE | 2019-06-21 09:50 | P.PN ---
Subjective Progress Note Date: 06/20/19 Principal diagnosis: Acute on chronic hypoxic respiratory failure due to acute COPD exacerbation Acute COPD exacerbation Baseline severe COPD Generalized anxiety disorder History of smoking and nicotine use Hypertension hypertensive cardiovascular disease 06/20/2019, patient seen evyanelis reexamined during the rounds labs reviewed medications reviewed as still have intermittent wheezing but able to get up and move around shortness of breath on exertion is slightly better 06/19/2019, patient seen eval examined during the rounds labs reviewed medications reviewed care plan discussed, patient remains on supplemental oxygen is still have intermittent wheezing is present but severity has improved anxiety symptoms have improved as well 06/18/2019, patient seen eval examined during the rounds labs reviewed medications reviewed care plan discussed with the patient and staff at length and anxiety a prehension is much better and improve she has been taking when necessary Xanax does not appear to have him worsen the respiratory status, still have significant wheezing and ongoing dyspnea on exertion*per discussion with the primary service patient will be kept for the weekend has she is been on IV steroids and breathing treatments continue other 06/17/2019, patient seen eval reexamined during the rounds labs reviewed medications reviewed complaining of significant anxiety especially at nighttime we'll start Xanax as needed continue other interventions possibly in next 24-48 hours should be ready for discharge and oral tapering steroids 06/16/2019, patient seen evyanelis examined during the rounds sitting upright on the bed breathing slightly heavier denies any chest pain does have breathing difficulties on exertion and activity patient remains on IV steroids breathing treatments and follow clinical course closely This is a 69-year-old female off for Dr. Montes patient patient has a prior history of extensive end-stage lung disease second to severe COPD emphysema has a long-term smoker smokes about 1 pack per day for almost 40 years came into the hospital with 4-5 day history of cough congestion shortness of breath sputum is white thick tenacious nonproductive cough x-ray showed consistent with COPD no active infiltrate identified patient has been started on breathing treatments and IV steroids Objective - Vital Signs Vital signs: Vital Signs Temp 98.1 F 06/20/19 13:48 Pulse 78 06/20/19 23:21 Resp 18 06/20/19 13:48 BP 105/71 06/20/19 13:48 Pulse Ox 96 06/20/19 15:21 Intake & Output 06/20/19 06/20/19 06/21/19 06:59 18:59 06:59 Intake Total 1620 Balance 1620 Intake: Oral 1620 Other: # Voids 3 2 # Bowel Movements 2 - Exam - Constitutional General appearance: cooperative, disheveled, mild distress, morbidly obese - EENT Eyes: EOMI, PERRLA, poor dentition, normal appearance ENT: normal oropharynx Ears: bilateral: normal - Neck Neck: normal ROM Carotids: bilateral: upstroke normal Thyroid: bilateral: normal size - Respiratory Respiratory: bilateral: diminished, wheezing, prolonged expiration, negative: CTA, dullness, rales, rhonchi - Cardiovascular Rhythm: regular Heart sounds: normal: S1, S2 - Gastrointestinal General gastrointestinal: soft - Integumentary Integumentary: normal turgor - Neurologic Neurologic: CNII-XII intact - Musculoskeletal Musculoskeletal: gait normal, generalized weakness, strength equal bilaterally - Psychiatric Psychiatric: A&O x's 3, appropriate affect, intact judgment & insight - Labs CBC & Chem 7: 06/19/19 07:32 06/19/19 07:32 Labs: Abnormal Lab Results - Last 24 Hours (Table) 06/20/19 06/20/19 06/20/19 Range/Units 06:51 11:45 16:44 POC Glucose (mg/dL) 112 H 105 H 113 H (75-99) mg/dL 06/20/19 Range/Units 20:41 POC Glucose (mg/dL) 158 H (75-99) mg/dL Microbiology - Last 24 Hours (Table) 06/13/19 18:12 Blood Culture - Final Blood No Growth after 144 hours Assessment and Plan Assessment: Acute on chronic hypoxic respiratory failure due to acute COPD exacerbation Acute COPD exacerbation Baseline severe COPD Generalized anxiety disorder History of smoking and nicotine use Hypertension hypertensive cardiovascular disease Plan: Continue Xanax when necessary Steroids IV Breathing treatments Continue home medications DVT prophylaxis and peptic ulcer disease prophylaxis Increase activity as tolerated Supplemental oxygen Further recommendations pending plan of care as per clinical response of the patient Time with Patient: Greater than 30
--- NOTE | 2019-06-21 09:52 | P.PN ---
Subjective Progress Note Date: 06/21/19 Principal diagnosis: Acute on chronic hypoxic respiratory failure due to acute COPD exacerbation Acute COPD exacerbation Baseline severe COPD Generalized anxiety disorder History of smoking and nicotine use Hypertension hypertensive cardiovascular disease 06/21/2019, patient seen eval examined during the rounds labs reviewed medications reviewed care plan discussed, cough congestion is improved able to sleep better agree with discharge planning on oral prednisone and next 24 hours 06/20/2019, patient seen eval reexamined during the rounds labs reviewed medications reviewed as still have intermittent wheezing but able to get up and move around shortness of breath on exertion is slightly better 06/19/2019, patient seen eval examined during the rounds labs reviewed medications reviewed care plan discussed, patient remains on supplemental oxygen is still have intermittent wheezing is present but severity has improved anxiety symptoms have improved as well 06/18/2019, patient seen eval examined during the rounds labs reviewed medications reviewed care plan discussed with the patient and staff at length and anxiety a prehension is much better and improve she has been taking when necessary Xanax does not appear to have him worsen the respiratory status, still have significant wheezing and ongoing dyspnea on exertion*per discussion with the primary service patient will be kept for the weekend has she is been on IV steroids and breathing treatments continue other 06/17/2019, patient seen eval reexamined during the rounds labs reviewed medications reviewed complaining of significant anxiety especially at nighttime we'll start Xanax as needed continue other interventions possibly in next 24-48 hours should be ready for discharge and oral tapering steroids 06/16/2019, patient seen eval examined during the rounds sitting upright on the bed breathing slightly heavier denies any chest pain does have breathing difficulties on exertion and activity patient remains on IV steroids breathing treatments and follow clinical course closely This is a 69-year-old female off for Dr. Montes patient patient has a prior history of extensive end-stage lung disease second to severe COPD emphysema has a long-term smoker smokes about 1 pack per day for almost 40 years came into the hospital with 4-5 day history of cough congestion shortness of breath sputum is white thick tenacious nonproductive cough x-ray showed consistent with COPD no active infiltrate identified patient has been started on breathing treatments and IV steroids Objective - Vital Signs Vital signs: Vital Signs Temp 98.4 F 06/21/19 05:03 Pulse 76 06/21/19 07:58 Resp 24 06/21/19 05:03 BP 147/82 06/21/19 05:03 Pulse Ox 97 06/21/19 05:03 Intake & Output 06/20/19 06/21/19 06/21/19 18:59 06:59 18:59 Intake Total 1620 540 Balance 1620 540 Intake: Oral 1620 540 Other: # Voids 2 5 2 # Bowel Movements 2 1 - Exam - Constitutional General appearance: cooperative, disheveled, mild distress, morbidly obese - EENT Eyes: EOMI, PERRLA, poor dentition, normal appearance ENT: normal oropharynx Ears: bilateral: normal - Neck Neck: normal ROM Carotids: bilateral: upstroke normal Thyroid: bilateral: normal size - Respiratory Respiratory: bilateral: diminished, wheezing, prolonged expiration, negative: CTA, dullness, rales, rhonchi - Cardiovascular Rhythm: regular Heart sounds: normal: S1, S2 - Gastrointestinal General gastrointestinal: soft - Integumentary Integumentary: normal turgor - Neurologic Neurologic: CNII-XII intact - Musculoskeletal Musculoskeletal: gait normal, generalized weakness, strength equal bilaterally - Psychiatric Psychiatric: A&O x's 3, appropriate affect, intact judgment & insight - Labs CBC & Chem 7: 06/19/19 07:32 06/19/19 07:32 Labs: Abnormal Lab Results - Last 24 Hours (Table) 06/20/19 06/20/19 06/20/19 Range/Units 11:45 16:44 20:41 POC Glucose (mg/dL) 105 H 113 H 158 H (75-99) mg/dL 06/21/19 Range/Units 07:10 POC Glucose (mg/dL) 118 H (75-99) mg/dL Assessment and Plan Assessment: Acute on chronic hypoxic respiratory failure due to acute COPD exacerbation Acute COPD exacerbation Baseline severe COPD Generalized anxiety disorder History of smoking and nicotine use Hypertension hypertensive cardiovascular disease Plan: Continue Xanax when necessary Steroids IV, can be switched to oral at the time of discharge Breathing treatments Continue home medications DVT prophylaxis and peptic ulcer disease prophylaxis Increase activity as tolerated Supplemental oxygen Further recommendations pending plan of care as per clinical response of the patient Time with Patient: Greater than 30
--- NOTE | 2019-06-21 11:00 | P.PN ---
Subjective Progress Note Date: 06/21/19 Principal diagnosis: COPD exacerbation Patient is still short of breath with ambulation but stated that she still improving every day was evaluated by pulmonary this morning who recommended continuation of current treatment. Patient is denying fever chills nausea vomiting or productive cough and stated that it's still difficult to get it out Objective - Vital Signs Vital signs: Vital Signs Temp 98.4 F 06/21/19 05:03 Pulse 76 06/21/19 07:58 Resp 18 06/21/19 10:09 BP 147/82 06/21/19 05:03 Pulse Ox 94 L 06/21/19 10:09 Intake & Output 06/20/19 06/21/19 06/21/19 18:59 06:59 18:59 Intake Total 1620 540 Balance 1620 540 Intake: Oral 1620 540 Other: # Voids 2 5 2 # Bowel Movements 2 1 - Exam Gen.: in stated age, no acute distress Heart: Normal S1-S2 Lungs: Diffuse wheezing bilaterally Abdomen: Soft, no tenderness, positive bowel sounds in all 4 quadrant no guarding or rebound Skin: No new rash Psych: Alert and oriented 3 Neuro: No focal deficit - Labs CBC & Chem 7: 06/19/19 07:32 06/19/19 07:32 Labs: Abnormal Lab Results - Last 24 Hours (Table) 06/20/19 06/20/19 06/20/19 Range/Units 11:45 16:44 20:41 POC Glucose (mg/dL) 105 H 113 H 158 H (75-99) mg/dL 06/21/19 Range/Units 07:10 POC Glucose (mg/dL) 118 H (75-99) mg/dL Assessment and Plan Assessment: 1. Acute COPD with exacerbation. 2. Tracheobronchitis. 3. Anxiety. 4. Hyponatremia. Patient overall with small steps toward improvement and may benefit from pulmonary rehab and slow tapering dose steroids over the next 3-4 weeks. We'll maintain oxygen between 88 and 92%, encourage ambulation, consider discharging patient in the morning based on clinical progress
[2019-06-21 12:00] LABS: Glucose,Whole Blood 112 mg/dL (75-99)
[2019-06-21] MEDS: MULTIVITAMINS, THERA 1 EACH TAB PO SCH (12:02)
[2019-06-21 16:55] LABS: Glucose,Whole Blood 110 mg/dL (75-99)
[2019-06-21] MEDS: AZITHROMYCIN 500 MG TAB PO SCH (17:35)
[2019-06-21 20:54] LABS: Glucose,Whole Blood 133 mg/dL (75-99)
[2019-06-21] MEDS: MONTELUKAST 10 MG TAB PO SCH (21:53)
[2019-06-22] MEDS: IPRATROPIUM-ALBUTEROL 3 ML NEB INHALATION SCH ×6 (03:15→23:49)
[2019-06-22 07:14] LABS: Glucose,Whole Blood 109 mg/dL (75-99)
[2019-06-22] MEDS: CANDESARTAN 16 MG PO SCH (07:20)
[2019-06-22] MEDS: TRIAMTERENE-HCTZ 37.5-25MG 1 EACH TAB PO SCH (07:20)
[2019-06-22] MEDS: ALPRAZolam 0.25 MG TAB PO PRN ×3 (07:20→23:31)
[2019-06-22] MEDS: NICOTINE 21MG/24HR PATCH TRANSDERM SCH (07:21)
[2019-06-22] MEDS: PANTOPRAZOLE 40 MG TABLET PO SCH (07:21)
[2019-06-22] MEDS: CALCIUM CARB-VIT D 500MG-200UN 1 EACH TAB PO SCH ×3 (07:21→17:36)
[2019-06-22] MEDS: methylPREDNISolone SOD SUCCI 40 MG/ML 1 ML VIAL IV SCH (07:21)
[2019-06-22] MEDS: FUROSEMIDE 20 MG TAB PO SCH (07:21)
[2019-06-22] MEDS: guaiFENesin 600 MG TABLET.ER PO SCH ×2 (07:21→20:35)
[2019-06-22] MEDS: HEPARIN SODIUM,PORCINE 5,000 UNIT/ML 1 ML VIAL SQ SCH ×2 (07:21→20:35)
[2019-06-22] MEDS: INSULIN ASPART (NovoLOG) 100 UNIT/ML VIAL SQ SCH ×4 (07:22→20:56)
[2019-06-22] MEDS: FORMOTEROL FUMARATE 20 MCG/2 ML NEBU INHALATION SCH ×2 (08:07→20:21)
[2019-06-22] MEDS: BUDESONIDE 1 MG/2 ML NEBU INHALATION SCH ×2 (08:07→20:21)
[2019-06-22 12:09] LABS: Glucose,Whole Blood 96 mg/dL (75-99)
[2019-06-22] MEDS: MULTIVITAMINS, THERA 1 EACH TAB PO SCH (12:41)
--- NOTE | 2019-06-22 13:49 | P.PN ---
Subjective Progress Note Date: 06/22/19 This is a 69-year-old female patient of Dr. Smallwood with a past medical history of COPD, hypertension, tobacco use and dependence at one pack per day for 30-40 years, came to the ER at [facility] with increased shrtness of breath and increased coughing that started few days ago associated with the minimal phlegm production she denies any chest pain at that however she was extreme short of breath with little ambulation so she was seen in the ER had a chest x-ray showed COPD without evidence of acute infiltrate, she was started on IV Solu-Medrol 60 mg IV push every 6 hours, along with Pulmicort 1 mg nebulization twice every day and DuoNeb 3 mL nebulization 4 times every day, pulmonary consultation. 06/15: Patient states that she is feeling bad today. She has a cough with severe spasms. She states she has no strength today. She has had several bowel movements but no diarrhea. Patient found to have lower extremity edema for which IV fluids will be discontinued and changed to saline lock him 1 dose of IV Lasix. And basic metabolic panel unremarkable. Blood sugars running between 1:15 and 216. She has been afebrile, heart rate 94, respiratory rate 28, blood pressure 156/72, pulse ox 92% on 3 L nasal cannula. Patient will be transferred to [facility] for today once bed is available. Dr. Garber is on consult for Dr. ELVIA Rodriguez. 06/16: Vision is now seen on the [facility] floor. She states she was quite miserable this morning and had bad wheezing this morning as well. At this time she has decreased shortness of breath. We will plan to continue Solu-Medrol 60 every 6 hours. She states she urinated well after Lasix yesterday and will add in Lasix 20 mg oral daily secondary to fluid overload from IV fluid. She remains afebrile, heart rate 88, blood pressure 159/91, pulse ox 91% on 3 L nasal cannula. Blood sugars are running between 121 -151. Blood cultures no growth in 48 hours. Patient may require home oxygen. We will assess closer to the time of discharge. Discharge plan is to return home. 06/17: Patient states that she had a really rough day yesterday due to difficulty breathing and was crying a lot. She has decreased lower extremity edema. Breathing status is much improved today. Dr. Garber did start her on Xanax yesterday. Will decrease IV Medrol to 40 every 8 hours. Patient has been afebrile, heart rate 85, blood pressure 129/80, pulse ox 97% on 3 L nasal cannula. Blood sugars are running 113-134. Anticipate possible discharge in the next 24-48 hours. 06/18: The patient continues to have significant shortness of breath although it may be starting to improve. She feels exhausted. She has continued wheezing. We have increased her DuoNeb treatments every 4 hours, increase Pulmicort to 1 mg twice daily, Perforomist twice daily added, Solu-Medrol will remain at 40 mg every 8 hours. She has been afebrile, heart rate 96, blood pressure 141/86, pulse ox 100% on 3 L nasal cannula. Blood sugars were between 106 and 171. 06/19: Patient's breathing is little improved from yesterday after medication changes were made. She continues to have wheezing and a cough though and we will maintain sinus 40 mg IV every 8 hours. Patient is followed by Dr. Garber. Patient has been afebrile, heart rate 87, blood pressure 127/68, pulse ox 96% on 3 L nasal cannula. WBC 8.3, hemoglobin 15.5. Sodium 135, potassium 4.0, chloride 94, CO2 35, BUN 6 and creatinine 29. Blood sugars are running between 68 and 102. Anticipate discharge in the next 48-72 hours. Patient is improving slowly and gradually. 06/22:patient remains on Solu-Medrol 40 mg. She states her breathing is improved since she was admitted but not back to baseline. She walked in the hallway with increased dyspnea.no fever or chills. We will plan to change IV steroids to oral with possible discharge tomorrow. Patient be assessed for home oxygen need. Patient does have a nebulizer at home. Objective - Vital Signs Vital signs: Vital Signs Temp 98.4 F 06/22/19 13:41 Pulse 99 06/22/19 13:41 Resp 18 06/22/19 13:41 BP 112/70 06/22/19 13:41 Pulse Ox 93 L 06/22/19 13:41 Intake & Output 06/21/19 06/22/19 06/22/19 18:59 06:59 18:59 Intake Total 1080 1000 Balance 1080 1000 Intake: Oral 1080 1000 Other: Voiding Method Toilet Bedside Commode # Voids 3 2 # Bowel Movements 1 - Exam Review of Systems Constitutional: Denies anorexia, Denies chronic headaches, reports weakness, Denies weight gain Ears, nose, mouth and throat: Denies dysphagia, Denies neck lump, Denies swelling in throat, Denies sore throat Cardiovascular: Reports decreased exercise tolerance, Reports dyspnea on exertion, Reports shortness of breath, Denies chest pain, Denies edema, Denies lightheadedness, Denies rapid heart beat, Denies syncope Respiratory: Reports cough, Reports cough with sputum, Reports dyspnea, Reports respiratory infections, Reports wheezing, Denies congestion, Denies home oxygen, Denies sleep apnea, Denies snoring Gastrointestinal: Denies abdominal pain, Denies bloating, Denies BRBPR, Denies loss of appetite, Denies melena, Denies nausea, Denies vomiting Genitourinary: Denies dysuria, Denies hematuria Musculoskeletal: Denies myalgias Musculoskeletal: absent: ankle pain, ankle stiffness, ankle swelling, elbow pain, elbow stiffness, elbow swelling, foot pain, foot stiffness, foot swelling, hand pain, hand stiffness, hand swelling, hip pain, hip stiffness, hip swelling, knee pain, knee stiffness, knee swelling, shoulder pain, shoulder stiffness, shoulder swelling, wrist pain, wrist stiffness, wrist swelling Integumentary: Denies pruritus, Denies rash Neurological: Denies numbness, Denies weakness Psychiatric: Reports anxiety, reports depression Endocrine: Denies fatigue, Denies weight change Gen: This is a 69-year-old female. She appears to be in minimal d istress but improved. HEENT: Head is atraumatic, normocephalic. Pupils equal, round. Sclerae is anic teric. NECK: Supple. No JVD. No lymphadenopathy. No thyromegaly. LUNGS: Expiratory wheeze throughout and a few scattered rhonchi. Mild intercostal retractions. HEART: Regular rate and rhythm. No murmur. ABDOMEN: Soft. Bowel sounds are present. No masses. No tenderness. EXTREMITIES: No bilateral pedal edema. No calf tenderness. NEUROLOGICAL: Patient is awake, alert and oriented x3. Cranial nerves 2 through 12 are grossly intact. - Labs CBC & Chem 7: 06/19/19 07:32 06/19/19 07:32 Labs: Abnormal Lab Results - Last 24 Hours (Table) 06/21/19 06/21/19 06/22/19 Range/Units 16:53 20:31 07:09 POC Glucose (mg/dL) 110 H 133 H 109 H (75-99) mg/dL Assessment and Plan Plan: 1. Acute hypoxic respiratory failure due to acute exacerbation of COPD with acute bronchitis. Continue DuoNeb 3 mL nebulization increased frequency to every 4 hours, Pulmicort increased to 1 mg nebulization twice every day, Perforomist twice daily and azithromycin every 24 hours, Solu-Medrol will be transitioned to oral prednisone, pulmonary consult. Home oxygen assessment. 2. Moderate COPD. Continue patient on treatment as in paragraph #1. 3. Hypertension and hypertensive cardiovascular disease. Continue patient on Atacand 8 mg orally once every day. 4. Chronic tobacco use and dependence. Smoking cessation and counseling an increased risk of CAD, CVA and malignancy. 5. DVT prophylaxis. Lovenox 40 mg subcutaneously every 24 hours. 6. GI prophylaxis. Continue patient on Pepcid 20 mg orally once every day. 7. Patient is full code. Discharge plan: home in the next24 hrs. Impression and plan of care have been directed as dictated by the signing physician. Radha Woodruff nurse practitioner acting as scribe for signing physician.
--- NOTE | 2019-06-22 15:48 | P.PN ---
Subjective Progress Note Date: 06/22/19 Principal diagnosis: Acute on chronic hypoxic respiratory failure due to acute COPD exacerbation Acute COPD exacerbation Baseline severe COPD Generalized anxiety disorder History of smoking and nicotine use Hypertension hypertensive cardiovascular disease 06/22/2019, patient seen eval examined the rounds slightly anxious but breathing has improved significantlysputum production is present denies any cough agree with discharge planning 06/21/2019, patient seen eval examined during the rounds labs reviewed medications reviewed care plan discussed, cough congestion is improved able to sleep better agree with discharge planning on oral prednisone and next 24 hours 06/20/2019, patient seen eval reexamined during the rounds labs reviewed medications reviewed as still have intermittent wheezing but able to get up and move around shortness of breath on exertion is slightly better 06/19/2019, patient seen eval examined during the rounds labs reviewed medications reviewed care plan discussed, patient remains on supplemental oxygen is still have intermittent wheezing is present but severity has improved anxiety symptoms have improved as well 06/18/2019, patient seen eval examined during the rounds labs reviewed medications reviewed care plan discussed with the patient and staff at length and anxiety a prehension is much better and improve she has been taking when necessary Xanax does not appear to have him worsen the respiratory status, still have significant wheezing and ongoing dyspnea on exertion*per discussion with the primary service patient will be kept for the weekend has she is been on IV steroids and breathing treatments continue other 06/17/2019, patient seen evyanelis reexamined during the rounds labs reviewed medications reviewed complaining of significant anxiety especially at nighttime we'll start Xanax as needed continue other interventions possibly in next 24-48 hours should be ready for discharge and oral tapering steroids 06/16/2019, patient seen evyanelis examined during the rounds sitting upright on the bed breathing slightly heavier denies any chest pain does have breathing difficulties on exertion and activity patient remains on IV steroids breathing treatments and follow clinical course closely This is a 69-year-old female off for Dr. Montes patient patient has a prior history of extensive end-stage lung disease second to severe COPD emphysema has a long-term smoker smokes about 1 pack per day for almost 40 years came into the hospital with 4-5 day history of cough congestion shortness of breath sputum is white thick tenacious nonproductive cough x-ray showed consistent with COPD no active infiltrate identified patient has been started on breathing treatments and IV steroids Objective - Vital Signs Vital signs: Vital Signs Temp 98.4 F 06/22/19 13:41 Pulse 99 06/22/19 13:41 Resp 18 06/22/19 13:41 BP 112/70 06/22/19 13:41 Pulse Ox 93 L 06/22/19 13:41 Intake & Output 06/21/19 06/22/19 06/22/19 18:59 06:59 18:59 Intake Total 1080 1000 1000 Balance 1080 1000 1000 Intake: Oral 1080 1000 1000 Other: Voiding Method Toilet Bedside Commode # Voids 3 2 3 # Bowel Movements 1 - Exam - Constitutional General appearance: cooperative, disheveled, mild distress, morbidly obese - EENT Eyes: EOMI, PERRLA, poor dentition, normal appearance ENT: normal oropharynx Ears: bilateral: normal - Neck Neck: normal ROM Carotids: bilateral: upstroke normal Thyroid: bilateral: normal size - Respiratory Respiratory: bilateral: diminished, wheezing, prolonged expiration, negative: CTA, dullness, rales, rhonchi - Cardiovascular Rhythm: regular Heart sounds: normal: S1, S2 - Gastrointestinal General gastrointestinal: soft - Integumentary Integumentary: normal turgor - Neurologic Neurologic: CNII-XII intact - Musculoskeletal Musculoskeletal: gait normal, generalized weakness, strength equal bilaterally - Psychiatric Psychiatric: A&O x's 3, appropriate affect, intact judgment & insight - Labs CBC & Chem 7: 06/19/19 07:32 06/19/19 07:32 Labs: Abnormal Lab Results - Last 24 Hours (Table) 06/21/19 06/21/19 06/22/19 Range/Units 16:53 20:31 07:09 POC Glucose (mg/dL) 110 H 133 H 109 H (75-99) mg/dL Assessment and Plan Assessment: Acute on chronic hypoxic respiratory failure due to acute COPD exacerbation Acute COPD exacerbation Baseline severe COPD Generalized anxiety disorder History of smoking and nicotine use Hypertension hypertensive cardiovascular disease Plan: Continue Xanax when necessary Steroids IV, can be switched to oral at the time of discharge Breathing treatments Continue home medications DVT prophylaxis and peptic ulcer disease prophylaxis Increase activity as tolerated Supplemental oxygen Further recommendations pending plan of care as per clinical response of the patient Time with Patient: Greater than 30
[2019-06-22 17:09] LABS: Glucose,Whole Blood 113 mg/dL (75-99)
[2019-06-22] MEDS: methylPREDNISolone SOD SUCCI 125 MG/2 ML VIAL IV SCH ×2 (17:36→23:31)
[2019-06-22] MEDS: AZITHROMYCIN 500 MG TAB PO SCH (17:36)
[2019-06-22] MEDS: MONTELUKAST 10 MG TAB PO SCH (20:35)
[2019-06-22 20:55] LABS: Glucose,Whole Blood 148 mg/dL (75-99)
[2019-06-22 22:03] VITALS: RESP 20
--- NOTE | 2019-06-22 22:49 | PN ---
PROGRESS NOTE DATE OF SERVICE: 06/22/2019 This patient continues to have shortness of breath and wheezing and has been slow to recover. Today she continues to have shortness of breath and is lying in bed. Her respiratory rate is 18, pulse rate 99, temperature 98.4, blood pressure 112/70. Oxygen saturation on 2 L by nasal cannula is 93%. HEENT reveals pupils that are equal. Chest reveals decreased breath sounds, prolonged exhalation with expiratory wheeze. Cardiovascular system reveals an S1, S2. Abdomen is soft. There is trace pedal edema. IMPRESSION AT THIS TIME: 1. Severe asthma with acute exacerbation. 2. Chronic obstructive pulmonary disease. Would increase her prednisone to 60 mg with a slower taper, as she has taken somewhat longer to improve. Give her 2 extra doses of Solu-Medrol today. Depending on how she does, we shall make further changes to her care. She was counseled regarding her condition and this approach and has a fair understanding of our recommendations. TRAVON / ADAN: [id number] /
[2019-06-23] MEDS: IPRATROPIUM-ALBUTEROL 3 ML NEB INHALATION SCH ×3 (04:03→11:09)
[2019-06-23 06:14] VITALS: BP 106/69; TEMP 98
[2019-06-23 07:10] LABS: Glucose,Whole Blood 138 mg/dL (75-99)
[2019-06-23] MEDS: BUDESONIDE 1 MG/2 ML NEBU INHALATION SCH (07:19)
[2019-06-23] MEDS: FORMOTEROL FUMARATE 20 MCG/2 ML NEBU INHALATION SCH (07:19)
[2019-06-23] MEDS: HEPARIN SODIUM,PORCINE 5,000 UNIT/ML 1 ML VIAL SQ SCH (08:02)
[2019-06-23] MEDS: guaiFENesin 600 MG TABLET.ER PO SCH (08:02)
[2019-06-23] MEDS: CALCIUM CARB-VIT D 500MG-200UN 1 EACH TAB PO SCH ×2 (08:02→13:03)
[2019-06-23] MEDS: FUROSEMIDE 20 MG TAB PO SCH (08:02)
[2019-06-23] MEDS: PANTOPRAZOLE 40 MG TABLET PO SCH (08:02)
[2019-06-23] MEDS: ALPRAZolam 0.25 MG TAB PO PRN (08:02)
[2019-06-23] MEDS: INSULIN ASPART (NovoLOG) 100 UNIT/ML VIAL SQ SCH ×2 (08:03→12:23)
[2019-06-23] MEDS: NICOTINE 21MG/24HR PATCH TRANSDERM SCH (08:03)
[2019-06-23] MEDS: CANDESARTAN 16 MG PO SCH (08:03)
[2019-06-23] MEDS: TRIAMTERENE-HCTZ 37.5-25MG 1 EACH TAB PO SCH (08:04)
[2019-06-23] MEDS ORDERED: predniSONE 20 MG TAB PO SCH ×2 (09:00)
--- NOTE | 2019-06-23 09:45 | CDI ---
Documentation Clarification Form Date: 06/23/2019 9:34:26 AM From: Josselyn BarneyLUCIANO, CCDS Admit Date: 06/13/2019 7:07:00 PM Patient Name: Suzanne Hoffman Visit Number: [id number] Discharge Date: ATTENTION: The Clinical Documentation Specialists (CDI) and [facility] Coding Staff appreciate your assistance in clarifying documentation. Please respond to the clarification below the line at the bottom and electronically sign. The CDI & [facility] Coding staff will review the response and follow-up if needed. Please note: Queries are made part of the Legal Health Record. If you have any questions, please contact the author of this message via ITS. Dr. Kavin Rodriguez: Asthma is documented in the 06/22 progress note as "severe asthma with acute exacerbation". History/risk factors: COPD, Tobacco dependence 1ppd 30-40 years, Hypertension, pneumonia. Clinical Indicators: Presented in COPD exacerbation, increased SOB & coughing, Diagnosed with acute on chronic hypoxic respiratory failure due to acute exacerbation of COPD with acute bronchitis. Radiology: CXR: COPD without acute infiltrate. Vital Signs: P 109^, R 26^ (SOB, shallow, tachypnea), BP 158/108^, PO 89 RA Treatment: IV Solumedrol, Pulmicort nebulizers & DuoNeb nebulizers, IV Azithromycin, IV Decadron, INH Albuterol, IV Rocephin, O2 3Lnc In your professional opinion, can you please further specify the following, if known the severity & form or type of asthma in addition to an acute exacerbation? Severity o Mild intermittent o Mild persistent o Moderate persistent o Severe persistent o Other, please specify ____ o Unable to determine Form or Type o Cough variant o Childhood o Exercise induced bronchospasm o Extrinsic allergic o Idiosyncratic o Intrinsic nonallergic o Late-onset o Mixed o Other, please specify____ o Unable to determine (Last Revision: November 2017) MTDD
[2019-06-23 11:24] VITALS: PULSE 96
[2019-06-23 11:40] LABS: Glucose,Whole Blood 112 mg/dL (75-99)
[2019-06-23] MEDS: MULTIVITAMINS, THERA 1 EACH TAB PO SCH (13:03)
--- NOTE | 2019-06-23 13:49 | P.DS ---
Providers Date of admission: 06/13/19 19:07 Expected date of discharge: 06/23/19 Attending physician: Negrito Turner Consults: 06/14/19 11:40 Consult Physician Routine Consulting Provider: Kavin Rodriguez Consult Reason/Comments: pna, copd Do you want consulting provider notified?: Yes Primary care physician: Paras Reading Hospital Course: This is a 69-year-old female patient of Dr. Smallwood with a past medical history of COPD, hypertension, tobacco use and dependence at one pack per day for 30-40 years, came to the ER at [facility] with increased shrtness of breath and increased coughing that started few days ago associated with the minimal phlegm production she denies any chest pain at that however she was extreme short of breath with little ambulation so she was seen in the ER had a chest x-ray showed COPD without evidence of acute infiltrate, she was started on IV Solu-Medrol 60 mg IV push every 6 hours, along with Pulmicort 1 mg nebulization twice every day and DuoNeb 3 mL nebulization 4 times every day, pulmonary consultation. 06/15: Patient states that she is feeling bad today. She has a cough with severe spasms. She states she has no strength today. She has had several bowel movements but no diarrhea. Patient found to have lower extremity edema for which IV fluids will be discontinued and changed to saline lock him 1 dose of IV Lasix. And basic metabolic panel unremarkable. Blood sugars running between 1:15 and 216. She has been afebrile, heart rate 94, respiratory rate 28, blood pressure 156/72, pulse ox 92% on 3 L nasal cannula. Patient will be transferred to [facility] for today once bed is available. Dr. Garber is on consult for Dr. ELVIA Rodriguez. 06/16: Vision is now seen on the [facility] floor. She states she was quite miser able this morning and had bad wheezing this morning as well. At this time she has decreased shortness of breath. We will plan to continue Solu-Medrol 60 every 6 hours. She states she urinated well after Lasix yesterday and will add in Lasix 20 mg oral daily secondary to fluid overload from IV fluid. She remains afebrile, heart rate 88, blood pressure 159/91, pulse ox 91% on 3 L nasal cannula. Blood sugars are running between 121 -151. Blood cultures no growth in 48 hours. Patient may require home oxygen. We will assess closer to the time of discharge. Discharge plan is to return home. 06/17: Patient states that she had a really rough day yesterday due to difficulty breathing and was crying a lot. She has decreased lower extremity edema. Breathing status is much improved today. Dr. Garber did start her on Xanax yesterday. Will decrease IV Medrol to 40 every 8 hours. Patient has been afebrile, heart rate 85, blood pressure 129/80, pulse ox 97% on 3 L nasal cannula. Blood sugars are running 113-134. Anticipate possible discharge in the next 24-48 hours. 06/18: The patient continues to have significant shortness of breath although it may be starting to improve. She feels exhausted. She has continued wheezing. We have increased her DuoNeb treatments every 4 hours, increase Pulmicort to 1 mg twice daily, Perforomist twice daily added, Solu-Medrol will remain at 40 mg every 8 hours. She has been afebrile, heart rate 96, blood pressure 141/86, pulse ox 100% on 3 L nasal cannula. Blood sugars were between 106 and 171. 06/19: Patient's breathing is little improved from yesterday after medication changes were made. She continues to have wheezing and a cough though and we will maintain sinus 40 mg IV every 8 hours. Patient is followed by Dr. Garber. Patient has been afebrile, heart rate 87, blood pressure 127/68, pulse ox 96% on 3 L nasal cannula. WBC 8.3, hemoglobin 15.5. Sodium 135, potassium 4.0, chloride 94, CO2 35, BUN 6 and creatinine 29. Blood sugars are running between 68 and 102. Anticipate discharge in the next 48-72 hours. Patient is improving slowly and gradually. 06/22:patient remains on Solu-Medrol 40 mg. She states her breathing is improved since she was admitted but not back to baseline. She walked in the hallway with increased dyspnea.no fever or chills. We will plan to change IV steroids to oral with possible discharge tomorrow. Patient be assessed for home oxygen need. Patient does have a nebulizer at home. 06/23: Patient states that her breathing status is much improved today. She has decreased wheezing. She has been ambulatory with less dyspnea. She denies any sputum production. Pulse ox is 92% on room air. All medications reviewed with the patient and necessary refills have been sent to the pharmacy. Patient will be discharged home today in stable condition. Discharge diagnoses: 1. Acute hypoxic respiratory failure due to acute exacerbation of COPD with acute bronchitis. 2. Moderate COPD. 3. Hypertension and hypertensive cardiovascular disease. 4. Chronic tobacco use and dependence. Discharge plan: home Impression and plan of care have been directed as dictated by the signing physician. Radha Woodruff nurse practitioner acting as scribe for signing physician. Patient Condition at Discharge: Fair Plan - Discharge Summary Discharge Rx Participant: Yes New Discharge Prescriptions: New Nicotine 14Mg/24Hr Patch [Habitrol] 1 patch TRANSDERM DAILY #30 patch Furosemide [Lasix] 20 mg PO DAILY #45 tab guaiFENesin [Mucinex] 1,200 mg PO Q12HR tablet.er Multivitamins, Thera [Multivitamin (formulary)] 1 each PO DAILY@1200 tab Calcium Carb-Vit D 500Mg-200Un [Oscal 500+D] 1 each PO TID-W/MEALS tab predniSONE 0 mg PO DIRECTED #30 tab Pantoprazole [Protonix] 40 mg PO AC-BRKFST tablet. ALPRAZolam [Xanax] 0.25 mg PO BID PRN 3 Days #6 tab PRN Reason: Anxiety Continue Albuterol Inhaler [Ventolin Hfa Inhaler] 1 - 2 puff INHALATION RT-Q6H Umeclidinium [place] [Incruse Ellipta] 1 puff INHALATION RT-DAILY@1200 Triamterene-Hctz 37.5-25Mg [Maxzide 37.5-25] 1 tab PO DAILY Candesartan [Atacand] 8 mg PO DAILY Montelukast [Singulair] 10 mg PO HS #30 tab Ipratropium-Albuterol Nebulize [Duoneb 0.5 mg-3 mg/3 ml Soln] 3 ml INHALATION RT-QID #120 neb Budesonide/Formoterol Fumarate [Symbicort 160-4.5 Mcg Inhaler] 2 puff INHALATION RT-BID #1 inhaler Discontinued predniSONE See Taper PO DAILY Levofloxacin [Levaquin] 750 mg PO DAILY 5 Days #5 tab Discharge Medication List Albuterol Inhaler [Ventolin Hfa Inhaler] 1 - 2 puff INHALATION RT-Q6H 04/12/19 [History] Candesartan [Atacand] 8 mg PO DAILY 04/12/19 [History] Triamterene-Hctz 37.5-25Mg [Maxzide 37.5-25] 1 tab PO DAILY 04/12/19 [History] Umeclidinium [place] [Incruse Ellipta] 1 puff INHALATION RT-DAILY@1200 04/12/19 [History] Montelukast [Singulair] 10 mg PO HS #30 tab 04/15/19 [Rx] ALPRAZolam [Xanax] 0.25 mg PO BID PRN 3 Days #6 tab 06/23/19 [Rx] Budesonide/Formoterol Fumarate [Symbicort 160-4.5 Mcg Inhaler] 2 puff INHALATION RT-BID #1 inhaler 06/23/19 [Rx] Calcium Carb-Vit D 500Mg-200Un [Oscal 500+D] 1 each PO TID-W/MEALS tab 06/23/19 [Rx] Furosemide [Lasix] 20 mg PO DAILY #45 tab 06/23/19 [Rx] Ipratropium-Albuterol Nebulize [Duoneb 0.5 mg-3 mg/3 ml Soln] 3 ml INHALATION RT-QID #120 neb 06/23/19 [Rx] Multivitamins, Thera [Multivitamin (formulary)] 1 each PO DAILY@1200 tab 06/23/19 [Rx] Nicotine 14Mg/24Hr Patch [Habitrol] 1 patch TRANSDERM DAILY #30 patch 06/23/19 [Rx] Pantoprazole [Protonix] 40 mg PO AC-BRKFST tablet.dr 06/23/19 [Rx] guaiFENesin [Mucinex] 1,200 mg PO Q12HR tablet.er 06/23/19 [Rx] predniSONE 0 mg PO DIRECTED #30 tab 06/23/19 [Rx] Follow up Appointment(s)/Referral(s): Paras Smallwood MD [Primary Care Provider] - 1 Week Kavin Rodriguez MD [STAFF PHYSICIAN] - 1 Week Patient Instructions/Handouts: COPD (Chronic Obstructive Pulmonary Disease) (DC) Activity/Diet/Wound Care/Special Instructions: HOME MEDS IN BACK MED ROOM!!!!!!!!!!!!!!!!!!!!!!!!
--- NOTE | 2019-06-23 21:22 | PN ---
PROGRESS NOTE DATE OF SERVICE: 06/23/2019 She was seen on June 23, 2019. She is less short of breath. On physical examination, her vitals are stable. She is afebrile. Her chest reveals prolonged exhalation. No wheeze today. Cardiovascular system reveals an S1, S2. Abdomen is soft with no pedal edema. IMPRESSION: At this time is: 1. Severe persistent asthma with acute exacerbation. 2. Allergic etiology. 3. Chronic obstructive pulmonary disease. 4. Acute respiratory failure due to hypoxia. At this point in time from a pulmonary standpoint, would agree with discharge planning on leukotriene receptor antagonist, inhaled steroids, and systemic steroids with a slow taper. Would be happy to see her in the near future in the outpatient setting. She will likely benefit from a biologic such as Xolair as she has allergic etiology to her exacerbations. She was counseled regarding her condition and this approach in the presence of her family and has a fair understanding of the recommendations. MMODL / IJN: [id number] /
== END 2019-06-23 13:48 | disposition home or self-care (01) | DRG 189 ==
LOC: EC 16:56 → 3SCARD 19:07 → 4MS4W 06-15 17:31
PROVIDERS: ADMIT Internal Medicine; ATTEND Internal Medicine
DX: J96.21 Acute and chronic respiratory failure with hypoxia (principal); J44.1 Chronic obstructive pulmonary disease with (acute) exacerbation; E87.1 Hypo-osmolality and hyponatremia; J45.51 Severe persistent asthma with (acute) exacerbation; J44.0 Chronic obstructive pulmonary disease with (acute) lower respiratory infection; F17.200 Nicotine dependence, unspecified, uncomplicated; I11.9 Hypertensive heart disease without heart failure; J20.9 Acute bronchitis, unspecified; E87.70 Fluid overload, unspecified; F41.1 Generalized anxiety disorder; Z80.1 Family history of malignant neoplasm of trachea, bronchus and lung; Z80.51 Family history of malignant neoplasm of kidney; Z79.51 Long term (current) use of inhaled steroids; Z79.899 Other long term (current) drug therapy; Z88.0 Allergy status to penicillin; Z88.8 Allergy status to other drugs, medicaments and biological substances; Z91.09 Other allergy status, other than to drugs and biological substances; Z87.01 Personal history of pneumonia (recurrent); Z90.89 Acquired absence of other organs; Z98.890 Other specified postprocedural states
CPT/HCPCS: 36415; 71045; 71046; 80048; 80053; 83735; 85025; 85027; 87040; 93005; 94640; 94760; 96365; 96367; 96375; 99285

== ENCOUNTER 2024-11-12 16:51 | Emergency (ER) | payer MEDICARE, OTHER ==
--- NOTE | 2024-11-12 18:05 | ED ---
Extremity Problem HPI - General Chief complaint: Extremity Problem,Nontraumatic Stated complaint: Abn labs Time Seen by Provider: 11/12/24 17:43 Source: patient, RN notes reviewed Mode of arrival: ambulatory Limitations: no limitations - History of Present Illness Initial comments: This is a 74-year-old female who presents to the emergency department for redness and swelling to the left foot and lower leg for the last several days. States that this seems to be getting worse and is also increasingly painful. She has been following with Dr. June, and he advised she come here for an ultrasound to rule out a blood clot and a CT scan to look for signs of a Lisfranc injury. Denies any history of blood clots. Denies any chest pain or shortness of breath. Not taking any blood thinners. She had previously been on antibiotics, which she states that she finished several days ago. - Related Data Home Medications Medication Instructions Recorded Confirmed RX: Albuterol Inhaler [Ventolin 2 puff INHALATION RT-Q4H PRN 04/12/19 11/12/24 Hfa Inhaler] RX: Candesartan [Atacand] 8 mg PO DAILY 04/12/19 11/12/24 RX: Triamterene-Hctz 37.5-25Mg 1 tab PO DAILY 04/12/19 11/12/24 [Maxzide 37.5-25] Albuterol Nebulized [Ventolin 2.5 mg INHALATION RT-Q6H PRN 11/12/24 11/12/24 Nebulized] Famotidine [Pepcid] 20 mg PO BID 11/12/24 11/12/24 Ipratropium Nebulized [Atrovent 0.5 mg INHALATION RT-Q6H PRN 11/12/24 11/12/24 Nebulized 0.2 MG/ML] Multivit-Min/Iron/Folic/Lutein 1 tab PO DAILY 11/12/24 11/12/24 [Centrum Silver Women Tablet] Previous Rx's Medication Instructions Recorded RX: Montelukast [Singulair] 10 mg PO HS #30 tab 04/15/19 RX: Budesonide/Formoterol Fumarate 2 puff INHALATION RT-BID #1 inhaler 06/23/19 [Symbicort 160-4.5 Mcg Inhaler] Allergies Allergy/AdvReac Type Severity Reaction Status Date / Time lisinopril Allergy Rash/Hives Verified 11/12/24 18:01 mercury (elemental) Allergy Rash/Hives Verified 11/12/24 18:01 metoprolol Allergy Rash/Hives Verified 11/12/24 18:01 penicillin V Allergy Anaphylaxis Verified 11/12/24 18:01 pseudoephedrine Allergy Rapid Verified 11/12/24 18:01 [From [facility]] Heart Rate Review of Systems ROS Statement: Those systems with pertinent positive or pertinent negative responses have been documented in the HPI. ROS Other: All systems not noted in ROS Statement are negative. Past Medical History Past Medical History: COPD, Hypertension, Pneumonia History of Any Multi-Drug Resistant Organisms: None Reported Past Surgical History: Tonsillectomy Additional Past Surgical History / Comment(s): hernia repair. Past Anesthesia/Blood Transfusion Reactions: No Reported Reaction Past Psychological History: No Psychological Hx Reported Smoking Status: Former smoker Past Alcohol Use History: None Reported Past Drug Use History: None Reported - Past Family History Father Additional Family Medical History / Comment(s): Father at age 68 from kidney cancer. He also had lung cancer. Patient was exposed to toxic chemicals thought to cause kidney cancer. Mother Additional Family Medical History / Comment(s): Mother at age 54 from gangrene. She was not diabetic. Sister(s) Additional Family Medical History / Comment(s): The patient has one sister and she has had no contact with her for 20 years. Patient does not have any brothers. Patient has 4 children with no major medical problems. General Exam Limitations: no limitations General appearance: alert, in no apparent distress Head exam: Present: atraumatic, normocephalic, normal inspection Respiratory exam: Present: normal lung sounds bilaterally. Absent: respiratory distress, wheezes, rales, rhonchi, stridor Cardiovascular Exam: Present: regular rate, normal rhythm Extremities exam: Present: other (Swelling, tenderness, and erythema to the distal aspect of the left tib-fib and left foot. 2+ DP and PT pulses) Neurological exam: Present: alert, oriented X3, CN II-XII intact Psychiatric exam: Present: normal affect, normal mood Course Vital Signs 11/12/24 17:19 Temperature 98.5 F Pulse Rate 92 Respiratory 19 Rate Blood Pressure 137/81 O2 Sat by Pulse 95 Oximetry Medical Decision Making - Medical Decision Making This is a 74-year-old female who presents to the emergency department for left leg pain and swelling. Was pt. sent in by a medical professional or institution? @ -Dr. June Did you speak to anyone other than the patient for history? @ -No Did you review nursing and triage notes? @ -Yes, and I agree, it is accurate with regards to the patient's symptoms. Were old charts reviewed? @ -No Differential Diagnosis? @ -Differential Musculoskeletal Muscular strain, contusion, ligament sprain, fracture, arthritis, septic arthritis, bursitis, cellulitis, muscle spasm, nerve compression, DVT, arterial occlusion, herpes zoster, electrolyte abnormality, tumor.... This is not meant to be in all inclusive list EKG interpreted by me (3pts min.)? @ -Not obtained X-rays interpreted by me (1pt min.)? @ -Not obtained CT interpreted by me (1pt min.)? @ -CT scan of the left foot obtained. My interpretation identifies no acute fractures. U/S interpreted by me (1pt. min.)? @ -Duplex ultrasound of the left lower extremity obtained. My interpretation identifies no evidence of a DVT. What testing was considered but not performed? (CT, X-rays, U/S, labs)? Why? @ -None What meds were considered but not given? Why? @ -None Did you discuss the management of the patient with other professionals? @ -No Did you reconcile home meds? @ -No Was smoking cessation discussed for >3mins.? @ -I discussed smoking cessation for greater than 3 minutes. The risk of smoking were discussed with the patient including but not limited to risks of c ancer, stroke, coronary artery disease and COPD. Also discussed with patient were multiple methods of quitting smoking. Lastly we discussed the financial cost of smoking. Was critical care preformed (if so, how long)? @ -No Were there social determinants of health that impacted care today? How? (Homelessness, low income, unemployed, alcoholism, drug addiction, transportation, low edu. Level, literacy, decrease access to med. care, shelter, rehab)? @ -No Was there de-escalation of care discussed even if they declined? (Discuss DNR or withdrawal of care, Hospice)? @ -No What co-morbidities impacted this encounter? (DM, HTN, Smoking, COPD, CAD, Cancer, CVA, Hep., AIDS, mental health diagnosis, sleep apnea, morbid obesity)? @ -Smoking, HTN Was patient admitted / discharged? @ -Discharged. Patient had orders with her for a duplex ultrasound of the left lower extremity as well as a CT scan of the left foot per Dr. June's recommendations. Duplex ultrasound of the left lower extremity obtained revealing no evidence of a DVT. CT scan of the left foot revealed no acute fracture or dislocation. She does have soft tissue swelling and degenerative changes. Findings reviewed with the patient. She will continue to wrap and elevate the leg and follow-up with Dr. June as instructed. Patient discharged home in stable condition. Case discussed with ED attending Dr. Walsh. Return precautions reviewed in depth, the patient is instructed to return to the emergency department with any new, worsening, or concerning symptoms. Patient verbalized understanding. Undiagnosed new problem with uncertain prognosis? @ -None Drug Therapy requiring intensive monitoring for toxicity (Heparin, Nitro, Insulin, Cardizem)? @ -None Were any procedures done? @ -None Diagnosis/symptom? @ -Left lower extremity pain and swelling Acute, or Chronic, or Acute on Chronic? @ -Acute Uncomplicated (without systemic symptoms) or Complicated (systemic symptoms)? @ -Uncomplicated Side effects of treatment? @ -None Exacerbation, Progression, or Severe Exacerbation] @ -Not applicable Poses a threat to life or bodily function? @ -Unlikely - Radiology Data Radiology results: report reviewed, image reviewed Disposition Clinical Impression: Pain and swelling of left lower leg Disposition: HOME SELF-CARE Additional Instructions: Return to the emergency department with any new, worsening, or concerning symptoms. Follow up with your primary care provider and with Dr. June. Is patient prescribed a controlled substance at d/c from ED?: No Referrals: Antoni Salcedo [Primary Care Provider] - 1-2 days Time of Disposition: 20:50
--- NOTE | 2024-11-12 18:30 | US ---
EXAMINATION TYPE: US venous doppler duplex LE LT DATE OF EXAM: 11/12/2024 5:28 PM COMPARISON: NONE CLINICAL INDICATION: Female, 74 years old with history of Left leg swelling; patient states fall on i ce 6 weeks ago with injury to knee. pain and swelling ever since from the knee down. no hx dvt. not o n thinners, Pain TECHNIQUE: The lower extremity deep venous system is examined utilizing real time linear array sonog betzaida with graded compression, color doppler sonography, and spectral doppler. SIDE PERFORMED: Left FINDINGS: VESSELS IMAGED: Common Femoral Vein Deep Femoral Vein Greater Saphenous Vein * Femoral Vein Popliteal Vein Small Saphenous Vein * Proximal Calf Veins (* superficial vessels) Left Leg: Negative for DVT, Color Doppler imaging shows patency of the vessels. Spectral waveforms a re within normal limits. IMPRESSION: No ultrasound evidence for deep venous thrombosis. [facility], , 11/12/2024 6:28 PM
--- NOTE | 2024-11-12 20:47 | CT ---
EXAMINATION TYPE: CT foot LT wo con DATE OF EXAM: 11/12/2024 8:40 PM COMPARISON: None. CLINICAL INDICATION: Female, 74 years old with history of Pain and swelling, Pain and swelling in lef t foot after fall., TECHNIQUE: Axial CT was performed with sagittal and coronal reformats. 3D reconstruction performed on a separate workstation. IV CONTRAST: , patient injected with mL of . (None if empty) CT DLP: 346 mGycm, Automated exposure control for dose reduction was used. FINDINGS: Soft tissue swelling noted about the lateral and medial malleolus extending into the dorsum of the fo ot. I do not see evidence for displaced fracture at this time. Well-corticated ossific density adjace nt to the lateral malleolus is likely reflective of unfused ossicle versus remote fracture. Severe de generative change first metatarsal phalangeal joint with hallux valgus deformity. No soft tissue mass seen. No bony destructive process. IMPRESSION: 1. No evidence of fracture or dislocation. 2. Degenerative changes. [facility], , 11/12/2024 8:45 PM
[2024-11-12 21:28] VITALS: BP 141/81; PULSE 70; RESP 18; TEMP 97.7
== END 2024-11-12 21:27 | disposition home or self-care (01) ==
LOC: EC 16:51
DX: M79.662 Pain in left lower leg (principal); M79.89 Other specified soft tissue disorders; F17.200 Nicotine dependence, unspecified, uncomplicated; I10 Essential (primary) hypertension; Z88.0 Allergy status to penicillin; Z88.8 Allergy status to other drugs, medicaments and biological substances
CPT/HCPCS: 99283; 99406